=== PATIENT | male | born 1960 | race African-American/Black ===

== ENCOUNTER 2016-09-06 08:21 | Inpatient (IN) | payer OTHER ==
[2016-09-06 08:43] VITALS: BMI 24.3
--- NOTE | 2016-09-06 09:09 | HP ---
CIWA Score - CIWA Score Nausea/Vomitin Muscle Tremors: 3 Anxiety: 3 Agitation: 3 Paroxysmal Sweats: 2 Orientation: 0-Oriented Tacttile Disturbances: 2-Mild Itch/Numbness/Burn Auditory Disturbances: 2-Mild Harshness/Frighten Visual Disturbances: 2-Mild Sensitivity Headache: 2-Mild CIWA-Ar Total Score: 22 Admission ROS BHS - HPI Chief Complaint: i need help to stop drinking alcohol Allergies/Adverse Reactions: Allergies Allergy/AdvReac Type Severity Reaction Status Date / Time No Known Allergies Allergy Verified 09/06/16 08:57 History of Present Illness: this 56 years old male with alcohol dependence,cocaine dependence ,seeking help for detox,last treatment [facility] 06/13/15 to 06/17/15 and rehab in [facility] depression nicotine dependence htn longest period of sobriety 8 months Exam Limitations: No Limitations - Ebola screening Have you traveled outside of the country in the last 21 days: No Have you had contact with anyone from an Ebola affected area: No Have you been sick,other than usual withdrawal symptoms: No Do you have a fever: No - Review of Systems Constitutional: Chills, Loss of Appetite, Malaise, Night Sweats, Changes in sleep, Weakness, Unintentional Wgt. Loss EENT: reports: Nose Congestion Respiratory: reports: No Symptoms reported Cardiac: reports: Palpitations GI: reports: Diarrhea, Nausea, Vomiting, Abdominal cramping : reports: No Symptoms Reported Musculoskeletal: reports: Back Pain, Muscle Pain Integumentary: reports: Dryness Neuro: reports: Headache, Tremors Endocrine: reports: No Symptoms Reported Hematology: reports: No Symptoms Reported Psychiatric: reports: Depressed Other Systems: Reviewed and Negative Patient History - Patient Medical History Hx Anemia: No Hx Asthma: No Hx Chronic Obstructive Pulmonary Disease (COPD): No Hx Cancer: No Hx Cardiac Disorders: No Hx Congestive Heart Failure: No Hx Hypertension: Yes (not tkaing meds) Hx Hypercholesterolemia: No Hx Pacemaker: No HX Cerebrovascular Accident: No Hx Seizures: No Hx Dementia: No Hx Diabetes: No Hx Gastrointestinal Disorders: Yes (GERD, recent wt loss) Hx Liver Disease: No Hx Genitourinary Disorders: No Hx Sexually Transmitted Disorders: No Hx Renal Disease (ESRD): No Hx Thyroid Disease: No Hx Human Immunodeficiency Virus (HIV): No (last 2015) Hx Hepatitis C: No Hx Depression: Yes (AND ANXIETY) Hx Suicide Attempt: Yes (IN THE PAST) Hx Bipolar Disorder: No Hx Schizophrenia: No Other Medical History: no suicidal,no homicidal - Patient Surgical History Past Surgical History: No Hx Neurologic Surgery: No Hx Cataract Extraction: No Hx Cardiac Surgery: No Hx Lung Surgery: No Hx Breast Surgery: No Hx Breast Biopsy: No Hx Abdominal Surgery: No Hx Appendectomy: No Hx Cholecystectomy: No Hx Genitourinary Surgery: No Hx Section: No Hx Orthopedic Surgery: No Anesthesia Reaction: No - PPD History Previous Implant?: Yes Documented Results: Positive w/o proof PPD to be Administered?: No - Smoking Cessation Smoking history: Current every day smoker Have you smoked in the past 12 months: Yes Aproximately how many cigarettes per day: 5 Hx Chewing Tobacco Use: No Initiated information on smoking cessation: Yes 'Breaking Loose' booklet given: 09/06/16 - Substance & Tx. History Hx Alcohol Use: Yes Hx Substance Use: Yes Substance Use Type: Alcohol, Cocaine Hx Substance Use Treatment: Yes ([facility] 06/13/15 to 06/17/15) - Substances Abused Alcohol Route: Oral Frequency: Daily Amount used: javon(1-2 pints)/beer(24 oz) Age of first use: 12 Date of Last Use: 09/05/16 Cocaine Route: Smoking Frequency: 1-3 times last 30 days Amount used: $30 Age of first use: 28 Date of Last Use: 08/23/16 Family Disease History - Family Disease History Family Disease History: Other: Father (ETOH DEPENDENT) Admission Physical Exam S - Vital Signs Vital Signs: Vital Signs - 24 hr 09/06/16 08:39 Temperature 96.7 F L Pulse Rate 79 Respiratory 18 Rate Blood Pressure 138/89 - Physical General Appearance: Yes: Moderate Distress, Tremorous, Irritable, Sweating, Anxious HEENTM: Yes: Normocephalic, KAT, Pharynx Normal, Nasal Congestion Respiratory: Yes: Lungs Clear, Normal Breath Sounds, No Respiratory Distress Neck: Yes: Within Normal Limits, Supple, Trachea in good position Breast: Yes: Within Normal Limits Cardiology: Yes: Within Normal Limits, Regular Rhythm, Regular Rate, S1, S2 Abdominal: Yes: Within Normal Limits, Normal Bowel Sounds, Non Tender, Flat, Soft Genitourinary: Yes: Within Normal Limits Back: Yes: Muscle Spasm Musculoskeletal: Yes: full range of Motion, Back pain Extremities: Yes: Tremors Neurological: Yes: capacity planning manager II-XII NML intact, Fully Oriented, Alert, Motor Strength 5/5 Integumentary: Yes: Dry Lymphatic: Yes: Within Normal Limits - Diagnostic (1) Anxiety and depression Current Visit: No Status: Chronic (2) Cocaine dependence Current Visit: Yes Status: Acute (3) GERD (gastroesophageal reflux disease) Current Visit: Yes Status: Chronic (4) HTN (hypertension) Current Visit: Yes Status: Chronic (5) Nicotine dependence Current Visit: Yes Status: Acute (6) Alcohol dependence with uncomplicated withdrawal Current Visit: Yes Status: Acute Cleared for Admission [facility] - Detox or Rehab [facility] Level of Care: Medically Managed Detox Regimen/Protocol: Librium [facility] Breath Alcohol Content Breath Alcohol Content: 0.143 Urine Drug Screen - Results Urine Drug Screen Results: KHOA-Cocaine
[2016-09-06] MEDS ORDERED: MAGNESIUM HYDROX 2400MG/30ML ORAL SUSPENSION 30 ML CUP PO PRN (09:20)
[2016-09-06] MEDS ORDERED: ACETAMINOPHEN 325 MG TABLET (FP) PO PRN (09:20)
[2016-09-06] MEDS ORDERED: LOPERAMIDE HCL 2 MG CAPSULE PO PRN (09:20)
[2016-09-06] MEDS ORDERED: hydrOXYzine PAMOATE 50 MG CAPSULE (FP) PO PRN (09:20)
[2016-09-06] MEDS ORDERED: guaiFENesin/D-METHORPHAN HB 10 ML UNIT-DOSE CUPS PO PRN (09:20)
[2016-09-06] MEDS ORDERED: MAGNESIUM CITRATE 300 ML BOTTLE PO PRN (09:20)
[2016-09-06] MEDS ORDERED: MAG HYDROX/AL HYDROX/SIMETH 30 ML UNIT-DOSE CUP PO PRN (09:20)
[2016-09-06] MEDS ORDERED: MENTHOL/PHENOL 1 EACH UD MM PRN (09:20)
[2016-09-06] MEDS ORDERED: P-EPHED 60MG/TRIPROLIDI 2.5MG TABLET PO PRN (09:20)
[2016-09-06] MEDS ORDERED: diphenhydrAMINE HCL 25 MG CAPSULE (FP) PO PRN (09:23)
[2016-09-06] MEDS ORDERED: chlordiazePOXIDE HCL 25 MG CAPSULE PO ONE (09:30)
[2016-09-06] MEDS: PRENATAL VITAMINS W/ FOLIC ACID TABLET (FP) PO SCH (09:56)
--- NOTE | 2016-09-06 10:20 | CONSULT ---
[facility] Psychiatric Consult - Data Date of interview: 09/06/16 Admission source: [facility] Identifying data: Readmission to [facility] for this 56 y/o AA male seeking detoxification treatment on for alcohol,cocaine (crack) and marijuana dependence.Patient is single (never ),a father of two,domiciled, unemployed and supported on SSI benefits. Substance Abuse History: Mr Bailey admits to abusing alcohol since age 12 ( drinks 1 1/2 pints of javon/day - last use on 09/05/16),smoking crack since age 28 (spends 30 dollars twice a month - last use on 08/30/16),marijuana from age 12 onwards (sporadic use);smoked a joint two weeks ago.Patient reportedly smokes 6- 10 cigarettes daily.Known history of previous detox/rehab treatment. Medical History: Hypertension,GERD and chronic weakness of left leg (discrete limp). Psychiatric History: No reported history of psychiatric hospitalizations.Mr Bailey reports that,years ago at a rehabilitation facility in [facility],he was diagnosed with MDD and treated with bupropion.Previous records also indicate that remeron and wellbutrin have been prescribed to the patient (see Dr Dia's note of 06/14/2015).Mr Bailey states that he has not taken wellbutrin for over one month (prescribed by his primary care physician).Lost to follow up since his last admission to [facility].Now willing to resume antidepressant medication.Patient denies history of suicide attempts. Physical/Sexual Abuse/Trauma History: Patient denies. Additional Comment: Urine Drug Screen Results: positive for cocaine. Mental Status Exam - Mental Status Exam Alert and Oriented to: Time, Place, Person Cognitive Function: Good Patient Appearance: Well Groomed (covered with jewelry : rings in every finger, large chain with a cross,bracelets and earing in left ear) Mood: Withdrawn, Hopeful Affect: Appropriate Patient Behavior: Appropriate, Cooperative Speech Pattern: Clear Voice Loudness: Normal Thought Process: Intact, Goal Oriented Thought Disorder: Not Present Hallucinations: Denies Suicidal Ideation: Denies Homicidal Ideation: Denies Insight/Judgement: Fair Sleep: Fair Appetite: Good Gait/Station: Other (walks with a discrete limp) Psychiatric Findings - Problem List ([place] 1, 2,3) (1) Alcohol dependence with uncomplicated withdrawal Current Visit: Yes Status: Acute (2) Cannabis dependence Current Visit: No Status: Chronic Comment: Self-report but tox screen is negative for marijuana. (3) Cocaine dependence Current Visit: Yes Status: Acute (4) Nicotine dependence Current Visit: Yes Status: Acute (5) Drug-induced mood disorder Current Visit: Yes Status: Acute (6) Depressive disorder Current Visit: Yes Status: Chronic (7) GERD (gastroesophageal reflux disease) Current Visit: Yes Status: Chronic (8) HTN (hypertension) Current Visit: Yes Status: Chronic - Initial Treatment Plan Initial Treatment Plan: Previous records are revisited.[facility] report is reviewed and appreciated.Detoxification is in progress.Wellbutrin XL 150 mg po is ordered.Will titrate to 300 mg in next couple of days.Side effects/benefits discussed with patient.He is made aware of potential for seizures.Good tolerability is reported by patient.He consents (verbal agreement) to restart on that medication.Will monitor progress.
[2016-09-06] MEDS ORDERED: ONDANSETRON *ODT* 4 MG TABLET SL PRN (12:45)
[2016-09-06 13:57] LABS: URINE APPEARANCE CLEAR; URINE BILIRUBIN NEGATIVE (NEGATIVE); URINE COLOR YELLOW; URINE GLUCOSE (UA) NEGATIVE (NEGATIVE); URINE KETONE NEGATIVE (NEGATIVE); URINE LEUK ESTERASE NEGATIVE (NEGATIVE); URINE NITRITE NEGATIVE (NEGATIVE); URINE UROBILINOGEN NEGATIVE mg/dL (0.2-1.0)
[2016-09-06] MEDS: chlordiazePOXIDE HCL 25 MG CAPSULE PO PRN (14:04)
[2016-09-06 14:14] LABS: URINE BLOOD 1+ (NEGATIVE); URINE PROTEIN 1+ (NEGATIVE)
[2016-09-06 14:21] LABS: GRANULAR CASTS 30 /lpf; URINE RBC <1 /hpf (0-3); URINE WBC <1 /hpf (3-5)
[2016-09-06] MEDS: chlordiazePOXIDE HCL 25 MG CAPSULE PO SCH ×2 (17:22→22:16)
[2016-09-06] MEDS: THIAMINE HCL 100 MG TABLET (FP) PO SCH (22:16)
[2016-09-06] MEDS: FLUTICASONE PROP 0.05% 16 GM NASAL SPRAY NS SCH (22:16)
[2016-09-06] MEDS: diphenhydrAMINE HCL 50 MG CAPSULE PO PRN (22:17)
[2016-09-07] MEDS: chlordiazePOXIDE HCL 25 MG CAPSULE PO PRN (02:38)
[2016-09-07] MEDS: chlordiazePOXIDE HCL 25 MG CAPSULE PO SCH ×4 (05:33→22:12)
--- NOTE | 2016-09-07 08:31 | EKG ---
Test Reason : Blood Pressure : / mmHG Vent. Rate : 067 BPM Atrial Rate : 067 BPM P-R Int : 118 ms QRS Dur : 090 ms QT Int : 420 ms P-R-T Axes : 069 040 053 degrees QTc Int : 443 ms NORMAL SINUS RHYTHM NORMAL ECG NO PREVIOUS ECGS AVAILABLE Confirmed by JULIAN PERRY, JOSIAS ([id number]) on 09/07/2016 8:31:22 AM Referred By: Confirmed By:JOSIAS JORDAN MD
[2016-09-07] MEDS: FLUTICASONE PROP 0.05% 16 GM NASAL SPRAY NS SCH ×2 (10:20→22:12)
[2016-09-07] MEDS: PRENATAL VITAMINS W/ FOLIC ACID TABLET (FP) PO SCH (10:20)
[2016-09-07 10:29] LABS: MCH 31.9 pg (25.7-33.7); MCHC 33.7 g/dl (32.0-35.9); MEAN CELL VOLUME 94.8 fl (80-96); MEAN PLT VOLUME 8.6 fl (7.5-11.1); PLATELET COUNT 172 K/MM3 (134-434); RDW 12.5 % (11.9-15.9); WHITE BLOOD COUNT 3.6 K/mm3 (4.0-10.0)
[2016-09-07 10:33] LABS: ALBUMIN 4.6 g/dl (3.4-5.0); ANION GAP 8 (8-16); BILIRUBIN,TOTAL 0.5 mg/dL (0.2-1.0); CALCIUM 9.3 mg/dL (8.5-10.1); CO2 26 mmol/L (21-32); CREATININE 1.1 mg/dL (0.7-1.3); GLUCOSE,RANDOM 90 mg/dL (74-106); SGOT/AST 174 U/L (15-37); SGPT/ALT 87 U/L (12-78); TOT PROT 9.3 g/dl (6.4-8.2)
[2016-09-07 10:34] LABS: ALK PHOS 91 U/L (45-117)
--- NOTE | 2016-09-07 12:46 | PN ---
S CIWA - CIWA Score Nausea/Vomitin Muscle Tremors: 2 Anxiety: 4-Mod. Anxious/Guarded Agitation: 1-Slight > Activity Paroxysmal Sweats: 3 Orientation: 2-Disoriented Date<2 days Tacttile Disturbances: 1-Very Mild Itch/Numbness Auditory Disturbances: 0-None Visual Disturbances: 1-Very Mild Sensitivity Headache: 0-None Present CIWA-Ar Total Score: 17 BHS Progress Note (SOAP) Subjective: Interrupted Sleep, Body Aches, Fatigue, Sweating, Stomach Cramping, Nausea. Objective: PT. A & O X 2 (DISORIENTED ABOUT DAY / DATE). NO ACUTE DISTRESS. 09/07/16 12:44 Vital Signs Temperature 97.9 F 09/07/16 09:14 Pulse Rate 92 H 09/07/16 09:14 Respiratory Rate 20 09/07/16 09:14 Blood Pressure 114/85 09/07/16 09:14 O2 Sat by Pulse Oximetry (%) Laboratory Tests 09/06/16 09/07/16 09/07/16 11:30 06:00 06:00 WBC 3.6 L RBC 3.83 L Hgb 12.2 D Hct 36.4 MCV 94.8 MCH 31.9 MCHC 33.7 RDW 12.5 Plt Count 172 MPV 8.6 Sodium 138 Potassium 4.3 D Chloride 104 Carbon Dioxide 26 Anion Gap 8 BUN 13 D Creatinine 1.1 Creat Clearance w eGFR > 60 Random Glucose 90 Calcium 9.3 Total Bilirubin 0.5 D AST 174 H D ALT 87 H D Alkaline Phosphatase 91 D Total Protein 9.3 H Albumin 4.6 Urine Color Yellow Urine Appearance Clear Urine pH 5.0 Ur Specific [place] 1.020 Urine Protein 1+ H Urine Glucose (UA) Negative Urine Ketones Negative Urine Blood 1+ H Urine Nitrite Negative Urine Bilirubin Negative Urine Urobilinogen Negative Ur Leukocyte Esterase Negative Urine RBC <1 Urine WBC <1 Ur Epithelial Cells Rare Granular Casts 30 RPR Titer 09/07/16 06:00 WBC RBC Hgb Hct MCV MCH MCHC RDW Plt Count MPV Sodium Potassium Chloride Carbon Dioxide Anion Gap BUN Creatinine Creat Clearance w eGFR Random Glucose Calcium Total Bilirubin AST ALT Alkaline Phosphatase Total Protein Albumin Urine Color Urine Appearance Urine pH Ur Specific [place] Urine Protein Urine Glucose (UA) Urine Ketones Urine Blood Urine Nitrite Urine Bilirubin Urine Urobilinogen Ur Leukocyte Esterase Urine RBC Urine WBC Ur Epithelial Cells Granular Casts RPR Titer Nonreactive LABS NOTED. Assessment: 09/07/16 12:44 WITHDRAWAL SYMPTOMS. Plan: CONTINUE DETOX. REPEAT AST ON 09/09/2016 FOR ELEVATED ADMISSION LEVEL.
[2016-09-07] MEDS: THIAMINE HCL 100 MG TABLET (FP) PO SCH (22:12)
[2016-09-07] MEDS: diphenhydrAMINE HCL 50 MG CAPSULE PO PRN (22:12)
[2016-09-08] MEDS: diphenhydrAMINE HCL 50 MG CAPSULE PO PRN ×2 (01:26→22:24)
[2016-09-08] MEDS: chlordiazePOXIDE HCL 25 MG CAPSULE PO PRN (02:12)
[2016-09-08] MEDS: chlordiazePOXIDE HCL 25 MG CAPSULE PO SCH ×2 (05:42→10:14)
[2016-09-08] MEDS: FLUTICASONE PROP 0.05% 16 GM NASAL SPRAY NS SCH ×2 (10:14→22:24)
[2016-09-08] MEDS: PRENATAL VITAMINS W/ FOLIC ACID TABLET (FP) PO SCH (10:14)
[2016-09-08] MEDS: IBUPROFEN 400 MG TABLET (FP) PO PRN (10:18)
[2016-09-08] MEDS: GABAPENTIN 100 MG CAPSULE (FP) PO SCH ×2 (14:46→22:24)
--- NOTE | 2016-09-08 15:21 | PN ---
[facility] CIWA - CIWA Score Nausea/Vomitin-Mild Nausea/No Vomiting Muscle Tremors: 4-Moderate,w/Arms Extend Anxiety: 4-Mod. Anxious/Guarded Agitation: 4-Moderately Restless Paroxysmal Sweats: No Perspiration Orientation: 0-Oriented Tacttile Disturbances: 1-Very Mild Itch/Numbness Auditory Disturbances: 0-None Visual Disturbances: 0-None Headache: 2-Mild CIWA-Ar Total Score: 16 BHS Progress Note (SOAP) Subjective: Tremor, weakness, interrupted sleep, c/o left leg numbness x 4-5 years started after he broke left foot (possible stress fx) and was seen by orthopedic and had foot brace as per patient. Patient has PCP. Objective: 09/08/16 15:19 Last Vital Signs Temp Pulse Resp BP Pulse Ox 99.1 F 87 18 113/81 09/08/16 13:02 09/08/16 13:02 09/08/16 13:02 09/08/16 13:02 Laboratory Tests 09/06/16 09/07/16 09/07/16 11:30 06:00 06:00 WBC 3.6 L RBC 3.83 L Hgb 12.2 D Hct 36.4 MCV 94.8 MCH 31.9 MCHC 33.7 RDW 12.5 Plt Count 172 MPV 8.6 Sodium 138 Potassium 4.3 D Chloride 104 Carbon Dioxide 26 Anion Gap 8 BUN 13 D Creatinine 1.1 Creat Clearance w eGFR > 60 Random Glucose 90 Calcium 9.3 Total Bilirubin 0.5 D AST 174 H D ALT 87 H D Alkaline Phosphatase 91 D Total Protein 9.3 H Albumin 4.6 Urine Color Yellow Urine Appearance Clear Urine pH 5.0 Ur Specific [place] 1.020 Urine Protein 1+ H Urine Glucose (UA) Negative Urine Ketones Negative Urine Blood 1+ H Urine Nitrite Negative Urine Bilirubin Negative Urine Urobilinogen Negative Ur Leukocyte Esterase Negative Urine RBC <1 Urine WBC <1 Ur Epithelial Cells Rare Granular Casts 30 RPR Titer 09/07/16 06:00 WBC RBC Hgb Hct MCV MCH MCHC RDW Plt Count MPV Sodium Potassium Chloride Carbon Dioxide Anion Gap BUN Creatinine Creat Clearance w eGFR Random Glucose Calcium Total Bilirubin AST ALT Alkaline Phosphatase Total Protein Albumin Urine Color Urine Appearance Urine pH Ur Specific [place] Urine Protein Urine Glucose (UA) Urine Ketones Urine Blood Urine Nitrite Urine Bilirubin Urine Urobilinogen Ur Leukocyte Esterase Urine RBC Urine WBC Ur Epithelial Cells Granular Casts RPR Titer Nonreactive Labs noted: UA: 1+ protein and 1+ blood PE: Neuro: A/A/Ox3, sensation to feet intact Skin: warm to touch, turgor good, moist Resp: lungs ctab/l, no adventitious breath sounds CV: rrr, s1s2+, apical rate 96 bpm Extrem: ppp, no c/c/e Gait: steady Assessment: 09/08/16 15:20 Withdrawal symptoms Peripheral neuropathy, chronic following right foot fx Noted with proteinuria and microscopic hematuria Plan: Continue detox, ambien 10mg PO prn insomnia Chronic peripheral neuropathy: start neurontin 100mg PO TID, follow up with PCP post discharge for further evaluation/management. Patient reports feeling a little better after first dose of neurontin. Proteinuria and microscopic hematuria: encouraged to drink lots of water, water pitcher ordered, repeat UA
[2016-09-08] MEDS: chlordiazePOXIDE 5 MG CAPSULE PO SCH ×2 (17:29→22:24)
[2016-09-08] MEDS: THIAMINE HCL 100 MG TABLET (FP) PO SCH (22:24)
[2016-09-08] MEDS: ZOLPIDEM TARTRATE 5 MG TABLET PO PRN (22:26)
[2016-09-09] MEDS: chlordiazePOXIDE 5 MG CAPSULE PO SCH ×2 (05:01→10:18)
[2016-09-09] MEDS: GABAPENTIN 100 MG CAPSULE (FP) PO SCH ×3 (07:06→22:09)
[2016-09-09 10:11] LABS: URINE APPEARANCE CLEAR; URINE BILIRUBIN NEGATIVE (NEGATIVE); URINE BLOOD NEGATIVE (NEGATIVE); URINE COLOR LTYELLOW; URINE GLUCOSE (UA) NEGATIVE (NEGATIVE); URINE KETONE NEGATIVE (NEGATIVE); URINE LEUK ESTERASE NEGATIVE (NEGATIVE); URINE NITRITE NEGATIVE (NEGATIVE); URINE PROTEIN NEGATIVE (NEGATIVE); URINE UROBILINOGEN NEGATIVE mg/dL (0.2-1.0)
[2016-09-09] MEDS: FLUTICASONE PROP 0.05% 16 GM NASAL SPRAY NS SCH ×2 (10:18→22:08)
[2016-09-09] MEDS: PRENATAL VITAMINS W/ FOLIC ACID TABLET (FP) PO SCH (10:18)
[2016-09-09] MEDS: IBUPROFEN 400 MG TABLET (FP) PO PRN ×2 (10:19→22:12)
--- NOTE | 2016-09-09 14:10 | PN ---
BHS Progress Note (SOAP) Subjective: Tremors, Body Aches, Lower Back Ache. Objective: PT. A & O X 2 (DISORIENTED ABOUT DAY / DATE), OBSERVED AMBULATING ON UNIT. NO ACUTE DISTRESS. PT. REPORTS HISTORY OF NUMBNESS IN LEFT LEG FOR THE LAST 6-7 YEARS, FOR WHICH HE HAS BEEN EVALUATED IN THE PAST BY A FACILITIES COORDINATOR. 09/09/16 14:08 Vital Signs Temperature 98.2 F 09/09/16 14:05 Pulse Rate 75 09/09/16 14:05 Respiratory Rate 18 09/09/16 14:05 Blood Pressure 121/77 09/09/16 14:05 O2 Sat by Pulse Oximetry (%) Laboratory Tests 09/06/16 09/07/16 09/07/16 11:30 06:00 06:00 WBC 3.6 L RBC 3.83 L Hgb 12.2 D Hct 36.4 MCV 94.8 MCH 31.9 MCHC 33.7 RDW 12.5 Plt Count 172 MPV 8.6 Sodium 138 Potassium 4.3 D Chloride 104 Carbon Dioxide 26 Anion Gap 8 BUN 13 D Creatinine 1.1 Creat Clearance w eGFR > 60 Random Glucose 90 Calcium 9.3 Total Bilirubin 0.5 D AST 174 H D ALT 87 H D Alkaline Phosphatase 91 D Total Protein 9.3 H Albumin 4.6 Urine Color Yellow Urine Appearance Clear Urine pH 5.0 Ur Specific [place] 1.020 Urine Protein 1+ H Urine Glucose (UA) Negative Urine Ketones Negative Urine Blood 1+ H Urine Nitrite Negative Urine Bilirubin Negative Urine Urobilinogen Negative Ur Leukocyte Esterase Negative Urine RBC <1 Urine WBC <1 Ur Epithelial Cells Rare Granular Casts 30 RPR Titer 09/07/16 09/09/16 06:00 07:15 WBC RBC Hgb Hct MCV MCH MCHC RDW Plt Count MPV Sodium Potassium Chloride Carbon Dioxide Anion Gap BUN Creatinine Creat Clearance w eGFR Random Glucose Calcium Total Bilirubin AST ALT Alkaline Phosphatase Total Protein Albumin Urine Color Ltyellow Urine Appearance Clear Urine pH 7.0 D Ur Specific [place] Urine Protein Negative Urine Glucose (UA) Negative Urine Ketones Negative Urine Blood Negative Urine Nitrite Negative Urine Bilirubin Negative Urine Urobilinogen Negative Ur Leukocyte Esterase Negative Urine RBC Urine WBC Ur Epithelial Cells Granular Casts RPR Titer Nonreactive LABS NOTED. RESULT OF REPEAT UA NOTED. 09/09/16 14:11 09/09/16 14:11 Assessment: 09/09/16 14:09 WITHDRAWAL SYMPTOMS. Plan: CONTINUE DETOX.
[2016-09-09] MEDS: chlordiazePOXIDE HCL 10 MG CAPSULE PO SCH ×2 (17:00→22:09)
[2016-09-09] MEDS: THIAMINE HCL 100 MG TABLET (FP) PO SCH (22:09)
[2016-09-09] MEDS: ZOLPIDEM TARTRATE 5 MG TABLET PO PRN (22:09)
[2016-09-10] MEDS: GABAPENTIN 100 MG CAPSULE (FP) PO SCH (06:04)
[2016-09-10] MEDS: chlordiazePOXIDE HCL 10 MG CAPSULE PO SCH (06:04)
[2016-09-10] MEDS: IBUPROFEN 400 MG TABLET (FP) PO PRN (06:19)
[2016-09-10] MEDS: FLUTICASONE PROP 0.05% 16 GM NASAL SPRAY NS SCH (09:24)
[2016-09-10] MEDS: PRENATAL VITAMINS W/ FOLIC ACID TABLET (FP) PO SCH (09:25)
[2016-09-10 09:42] VITALS: BP 120/80; PULSE 82; TEMP 96.1
--- NOTE | 2016-09-10 10:37 | DS ---
[facility] Detox Discharge Summary Admission Date: 09/06/16 Discharge Date: 09/10/16 - History Present History: Alcohol Dependence, Cocaine Dependence Additional Comments: Patient electing to go home. Outpatient 12-Step / AA / NA Programs recommended for Follow-up. Pertinent Past History: HTN, GERD, Depression, Anxiety. - Physical Exam Results Vital Signs: Vital Signs Temperature 96.1 F L 09/10/16 09:41 Pulse Rate 82 09/10/16 09:41 Respiratory Rate 18 09/10/16 09:41 Blood Pressure 120/80 09/10/16 09:41 O2 Sat by Pulse Oximetry (%) Pertinent Admission Physical Exam Findings: WITHDRAWAL SYMPTOMS. Vital Signs Temperature 96.1 F L 09/10/16 09:41 Pulse Rate 82 09/10/16 09:41 Respiratory Rate 18 09/10/16 09:41 Blood Pressure 120/80 09/10/16 09:41 O2 Sat by Pulse Oximetry (%) Laboratory Tests 09/06/16 09/07/16 09/07/16 11:30 06:00 06:00 WBC 3.6 L RBC 3.83 L Hgb 12.2 D Hct 36.4 MCV 94.8 MCH 31.9 MCHC 33.7 RDW 12.5 Plt Count 172 MPV 8.6 Sodium 138 Potassium 4.3 D Chloride 104 Carbon Dioxide 26 Anion Gap 8 BUN 13 D Creatinine 1.1 Creat Clearance w eGFR > 60 Random Glucose 90 Calcium 9.3 Total Bilirubin 0.5 D AST 174 H D ALT 87 H D Alkaline Phosphatase 91 D Total Protein 9.3 H Albumin 4.6 Urine Color Yellow Urine Appearance Clear Urine pH 5.0 Ur Specific [place] 1.020 Urine Protein 1+ H Urine Glucose (UA) Negative Urine Ketones Negative Urine Blood 1+ H Urine Nitrite Negative Urine Bilirubin Negative Urine Urobilinogen Negative Ur Leukocyte Esterase Negative Urine RBC <1 Urine WBC <1 Ur Epithelial Cells Rare Granular Casts 30 RPR Titer 09/07/16 09/09/16 09/09/16 06:00 07:15 11:10 WBC RBC Hgb Hct MCV MCH MCHC RDW Plt Count MPV Sodium Potassium Chloride Carbon Dioxide Anion Gap BUN Creatinine Creat Clearance w eGFR Random Glucose Calcium Total Bilirubin AST 138 H D ALT Alkaline Phosphatase Total Protein Albumin Urine Color L[place] Urine Appearance Clear Urine pH 7.0 D Ur Specific [place] 1.010 Urine Protein Negative Urine Glucose (UA) Negative Urine Ketones Negative Urine Blood Negative Urine Nitrite Negative Urine Bilirubin Negative Urine Urobilinogen Negative Ur Leukocyte Esterase Negative Urine RBC Urine WBC Ur Epithelial Cells Granular Casts RPR Titer Nonreactive LABS NOTED. - Treatment Hospital Course: Detox Protocol Followed, Detoxed Safely, Responded well, Discharged Condition Good - Medication Discharge Medications: Ambulatory Orders Diphenhydramine HCl [Benadryl Capsule -] 25 mg PO Q6H 05/02/14 Bupropion HCl [Wellbutrin Xl -] 300 mg PO DAILY #30 tab.sr.24h 06/14/15 Bupropion HCl [Wellbutrin Xl] 300 mg PO DAILY #30 tab.er.24h 09/06/16 Phenylephrine 0.25% Nasal Spra [Freddie-Synephrine 0.25% Nasal [place] -] 1 spray NS Q4H 09/06/16 - Diagnosis (1) Alcohol dependence with uncomplicated withdrawal Status: Acute (2) Cocaine dependence Status: Acute Qualifiers: Substance use status: uncomplicated Qualified Code(s): F14.20 - Cocaine dependence, uncomplicated (3) Drug-induced mood disorder Status: Acute (4) Nicotine dependence Status: Chronic Qualifiers: Nicotine product type: cigarettes Substance use status: uncomplicated Qualified Code(s): F17.210 - Nicotine dependence, cigarettes, uncomplicated (5) Anxiety and depression Status: Chronic (6) Depressive disorder Status: Chronic (7) GERD (gastroesophageal reflux disease) Status: Chronic Qualifiers: Esophagitis presence: esophagitis presence not specified Qualified Code(s): K21.9 - Gastro-esophageal reflux disease without esophagitis (8) HTN (hypertension) Status: Chronic Qualifiers: Hypertension type: essential hypertension Qualified Code(s): I10 - Essential (primary) hypertension (9) Cannabis dependence Status: Chronic - AMA Did Patient Leave Against Medical Advice: No
== END 2016-09-10 09:32 | disposition home or self-care (01) | DRG 774 ==
LOC: YASAS 08:21 → Y3N 09:25
PROVIDERS: ADMIT Internal Medicine; ATTEND Internal Medicine
PROC: HZ2ZZZZ Detoxification Services for Substance Abuse Treatment (ICD-10-PCS; principal; 2016-09-10)
DX: F10.230 Alcohol dependence with withdrawal, uncomplicated (principal); F14.20 Cocaine dependence, uncomplicated; F12.20 Cannabis dependence, uncomplicated; F17.210 Nicotine dependence, cigarettes, uncomplicated; F41.8 Other specified anxiety disorders; F19.24 Other psychoactive substance dependence with psychoactive substance-induced mood disorder; I10 Essential (primary) hypertension; K21.9 Gastro-esophageal reflux disease without esophagitis
CPT/HCPCS: 36415; 71010-TC; 80053; 81003; 81015; 84450; 85027; 86593; 93005; 93010

== ENCOUNTER 2017-03-06 11:49 | Inpatient (IN) | payer OTHER ==
[2017-03-06 13:03] VITALS: BMI 24.3
--- NOTE | 2017-03-06 14:11 | HP ---
CIWA Score - CIWA Score Nausea/Vomitin Muscle Tremors: 3 Anxiety: 3 Agitation: 3 Paroxysmal Sweats: 2 Orientation: 0-Oriented Tacttile Disturbances: 2-Mild Itch/Numbness/Burn Auditory Disturbances: 2-Mild Harshness/Frighten Visual Disturbances: 2-Mild Sensitivity Headache: 2-Mild CIWA-Ar Total Score: 22 Admission ROS BHS - HPI Chief Complaint: i need help to stop drinking alcohol,cocaine and marijuana Allergies/Adverse Reactions: Allergies Allergy/AdvReac Type Severity Reaction Status Date / Time No Known Allergies Allergy Verified 03/06/17 14:03 History of Present Illness: this 57 years old black male with alcohol,cocaine and marijuana dependence, seeking detox,withdrawal symptom,last treatment 09/06/16 to 09/10/16 hypertension nicotine dependence depression longest period of sobriety 8 months Exam Limitations: No Limitations - Ebola screening Have you traveled outside of the country in the last 21 days: No Have you been sick,other than usual withdrawal symptoms: No - Review of Systems Constitutional: Loss of Appetite, Malaise, Night Sweats, Changes in sleep, Weakness EENT: reports: Nose Congestion Respiratory: reports: No Symptoms reported Cardiac: reports: No Symptoms Reported GI: reports: Diarrhea, Nausea, Vomiting, Abdominal cramping : reports: No Symptoms Reported Musculoskeletal: reports: Back Pain, Muscle Pain Integumentary: reports: Dryness Neuro: reports: Headache, Tremors Endocrine: reports: No Symptoms Reported Hematology: reports: No Symptoms Reported Psychiatric: reports: Depressed Patient History - Patient Medical History Hx Anemia: No Hx Asthma: No Hx Chronic Obstructive Pulmonary Disease (COPD): No Hx Cancer: No Hx Cardiac Disorders: No Hx Congestive Heart Failure: No Hx Hypertension: Yes (not tkaing meds) Hx Hypercholesterolemia: Yes Hx Pacemaker: No HX Cerebrovascular Accident: No Hx Seizures: No Hx Dementia: No Hx Diabetes: No Hx Gastrointestinal Disorders: Yes (GERD, recent wt loss) Hx Liver Disease: Yes Hx Genitourinary Disorders: No Hx Sexually Transmitted Disorders: No Hx Renal Disease (ESRD): No Hx Thyroid Disease: No Hx Human Immunodeficiency Virus (HIV): No (last 2016 negatie) Hx Hepatitis C: Yes Hx Depression: Yes (AND ANXIETY) Hx Suicide Attempt: Yes (IN THE PAST) Hx Bipolar Disorder: No Hx Schizophrenia: No Other Medical History: no suicidal,no homicidal,low back apin - Patient Surgical History Past Surgical History: No Hx Neurologic Surgery: No Hx Cataract Extraction: No Hx Cardiac Surgery: No Hx Lung Surgery: No Hx Breast Surgery: No Hx Breast Biopsy: No Hx Abdominal Surgery: No Hx Appendectomy: No Hx Cholecystectomy: No Hx Genitourinary Surgery: No Hx Section: No Hx Orthopedic Surgery: No Anesthesia Reaction: No - PPD History Previous Implant?: Yes Documented Results: Positive w/proof PPD to be Administered?: No - Smoking Cessation Smoking history: Current every day smoker Have you smoked in the past 12 months: Yes Aproximately how many cigarettes per day: 5 Hx Chewing Tobacco Use: No Initiated information on smoking cessation: Yes 'Breaking Loose' booklet given: 03/06/17 - Substance & Tx. History Hx Alcohol Use: Yes Hx Substance Use: Yes Substance Use Type: Alcohol, Cocaine, Marijuana Hx Substance Use Treatment: Yes ([facility] 09/06/16 to 09/10/16) - Substances Abused Alcohol Route: Oral Frequency: Daily Amount used: 1 AND 1/2 PINTS NENITA Age of first use: 12 Date of Last Use: 03/06/17 Cocaine Route: Smoking Frequency: 1-3 times last 30 days Amount used: $20 Age of first use: 18 Date of Last Use: 02/27/17 Marijuana/Hashish Route: Smoking Frequency: 1-3 times last 30 days Amount used: 1 JOINT Age of first use: 12 Date of Last Use: 02/27/17 Family Disease History - Family Disease History Family Disease History: Other: Father (ETOH DEPENDENT) Admission Physical Exam S - Vital Signs Vital Signs: Vital Signs - 24 hr 03/06/17 13:01 Temperature 98.1 F Pulse Rate 90 Respiratory 18 Rate Blood Pressure 143/99 - Physical General Appearance: Yes: Moderate Distress, Tremorous, Irritable, Sweating, Anxious HEENTM: Yes: KAT, Pharynx Normal, Tm's normal Respiratory: Yes: Lungs Clear, Normal Breath Sounds, No Respiratory Distress Neck: Yes: Within Normal Limits, Supple, Trachea in good position Breast: Yes: Within Normal Limits Cardiology: Yes: Within Normal Limits, Regular Rhythm, Regular Rate, S1, S2 Abdominal: Yes: Normal Bowel Sounds, Non Tender, Flat, Soft Genitourinary: Yes: Within Normal Limits Back: Yes: Muscle Spasm Musculoskeletal: Yes: Back pain, Muscle Pain Extremities: Yes: Tremors Neurological: Yes: director of clinical services II-XII NML intact, Fully Oriented, Alert, Motor Strength 5/5 Integumentary: Yes: Dry Lymphatic: Yes: Within Normal Limits - Diagnostic (1) Alcohol dependence with uncomplicated withdrawal Current Visit: No Status: Acute (2) Cocaine dependence Current Visit: No Status: Acute Qualifiers: Substance use status: uncomplicated Qualified Code(s): F14.20 - Cocaine dependence, uncomplicated (3) Cannabis dependence Current Visit: No Status: Chronic Comment: Self-report but tox screen is negative for marijuana. (4) HTN (hypertension) Current Visit: No Status: Chronic Qualifiers: Hypertension type: essential hypertension Qualified Code(s): I10 - Essential (primary) hypertension (5) Nicotine dependence Current Visit: No Status: Chronic Qualifiers: Nicotine product type: cigarettes Substance use status: uncomplicated Qualified Code(s): F17.210 - Nicotine dependence, cigarettes, uncomplicated (6) Hepatitis C Current Visit: Yes Status: Acute (7) Hypercholesteremia Current Visit: Yes Status: Acute Cleared for Admission [facility] - Detox or Rehab [facility] Level of Care: Medically Managed Detox Regimen/Protocol: Librium [facility] Breath Alcohol Content Breath Alcohol Content: 0.230 Urine Drug Screen - Results Drug Screen Negative: No Urine Drug Screen Results: KHOA-Cocaine, TCA-Tricyclic Antidepress
[2017-03-06] MEDS ORDERED: LOPERAMIDE HCL 2 MG CAPSULE PO PRN (14:21)
[2017-03-06] MEDS ORDERED: MAGNESIUM CITRATE 300 ML BOTTLE PO PRN (14:21)
[2017-03-06] MEDS ORDERED: MAG HYDROX/AL HYDROX/SIMETH 30 ML UNIT-DOSE CUP PO PRN (14:21)
[2017-03-06] MEDS ORDERED: MENTHOL/PHENOL 1 EACH UD MM PRN (14:21)
[2017-03-06] MEDS ORDERED: P-EPHED 60MG/TRIPROLIDI 2.5MG TABLET PO PRN (14:21)
[2017-03-06] MEDS ORDERED: MAGNESIUM HYDROX 2400MG/30ML ORAL SUSPENSION 30 ML CUP PO PRN (14:21)
[2017-03-06] MEDS ORDERED: ACETAMINOPHEN 325 MG TABLET (FP) PO PRN (14:21)
[2017-03-06] MEDS ORDERED: chlordiazePOXIDE HCL 25 MG CAPSULE PO PRN (14:21)
[2017-03-06] MEDS ORDERED: guaiFENesin/D-METHORPHAN HB 10 ML UNIT-DOSE CUPS PO PRN (14:21)
[2017-03-06] MEDS ORDERED: IBUPROFEN 400 MG TABLET (FP) PO PRN (14:21)
[2017-03-06] MEDS ORDERED: chlordiazePOXIDE HCL 25 MG CAPSULE PO ONE (15:11)
[2017-03-06] MEDS: chlordiazePOXIDE HCL 25 MG CAPSULE PO SCH ×2 (20:44→22:03)
[2017-03-06] MEDS: THIAMINE HCL 100 MG TABLET (FP) PO SCH (22:03)
[2017-03-06] MEDS: hydrOXYzine PAMOATE 25 MG CAPSULE (FP) PO PRN (22:05)
[2017-03-06 23:16] LABS: URINE APPEARANCE CLEAR; URINE BILIRUBIN NEGATIVE (NEGATIVE); URINE BLOOD 1+ (NEGATIVE); URINE COLOR YELLOW; URINE GLUCOSE (UA) NEGATIVE (NEGATIVE); URINE KETONE NEGATIVE (NEGATIVE); URINE LEUK ESTERASE NEGATIVE (NEGATIVE); URINE NITRITE NEGATIVE (NEGATIVE)
[2017-03-06 23:18] LABS: URINE PROTEIN 1+ (NEGATIVE)
[2017-03-07 00:15] LABS: EPI CELLS RARE /HPF (FEW); URINE HYALINE CAST 2 /lpf; URINE MUCUS RARE
[2017-03-07] MEDS: chlordiazePOXIDE HCL 25 MG CAPSULE PO SCH ×4 (05:07→22:00)
[2017-03-07 10:01] LABS: HEMATOCRIT 37.5 % (35.4-49); HEMOGLOBIN 12.2 GM/dL (11.7-16.9); MCH 31.4 pg (25.7-33.7); MCHC 32.6 g/dl (32.0-35.9); MEAN CELL VOLUME 96.3 fl (80-96); MEAN PLT VOLUME 8.7 fl (7.5-11.1); PLATELET COUNT 187 K/MM3 (134-434); RBC 3.89 M/mm3 (4.00-5.60); RDW 12.9 % (11.9-15.9); WHITE BLOOD COUNT 4.7 K/mm3 (4.0-10.0)
[2017-03-07] MEDS: PRENATAL VITAMINS W/ FOLIC ACID TABLET (FP) PO SCH (10:08)
[2017-03-07 10:18] LABS: CHLORIDE 100 mmol/L (98-107); POTASSIUM 4.1 mmol/L (3.5-5.1); SODIUM 134 mmol/L (136-145)
[2017-03-07 10:24] LABS: ALBUMIN 4.7 g/dl (3.4-5.0); ALK PHOS 102 U/L (45-117); ANION GAP 7 (8-16); BILIRUBIN,TOTAL 0.7 mg/dL (0.2-1.0); BLOOD UREA NITROGEN 12 mg/dL (7-18); CO2 27 mmol/L (21-32); GLUCOSE,RANDOM 100 mg/dL (74-106); SGOT/AST 178 U/L (15-37); SGPT/ALT 75 U/L (12-78); TOT PROT 9.8 g/dl (6.4-8.2)
--- NOTE | 2017-03-07 10:29 | PN ---
[facility] CIWA - CIWA Score Nausea/Vomitin-No Nausea/No Vomiting Muscle Tremors: 4-Moderate,w/Arms Extend Anxiety: 4-Mod. Anxious/Guarded Agitation: 4-Moderately Restless Paroxysmal Sweats: 1-Minimal Palms Moist Orientation: 0-Oriented Tacttile Disturbances: 3-Moderate Itch/Numb/Burn Auditory Disturbances: 0-None Visual Disturbances: 0-None Headache: 0-None Present CIWA-Ar Total Score: 16 S Progress Note (SOAP) Subjective: ANXIETY,SWEATS, NASAL CONGESTION--USES FLONASE. Objective: 03/07/17 10:28 Vital Signs Temperature 98.0 F 03/07/17 09:43 Pulse Rate 103 H 03/07/17 09:43 Respiratory Rate 16 03/07/17 09:43 Blood Pressure 141/89 03/07/17 09:43 O2 Sat by Pulse Oximetry (%) Laboratory Last Values Urine Color Yellow 03/06/17 21:00 Urine Appearance Clear 03/06/17 21:00 Urine pH 5.0 (5.0-8.0) D 03/06/17 21:00 Ur Specific [place] 1.017 (1.001-1.035) 03/06/17 21:00 Urine Protein 1+ (NEGATIVE) H 03/06/17 21:00 Urine Glucose (UA) Negative (NEGATIVE) 03/06/17 21:00 Urine Ketones Negative (NEGATIVE) 03/06/17 21:00 Urine Blood 1+ (NEGATIVE) H 03/06/17 21:00 Urine Nitrite Negative (NEGATIVE) 03/06/17 21:00 Urine Bilirubin Negative (NEGATIVE) 03/06/17 21:00 Urine Urobilinogen 2.0 mg/dL (0.2-1.0) 03/06/17 21:00 Ur Leukocyte Esterase Negative (NEGATIVE) 03/06/17 21:00 Urine WBC (Auto) <1 /hpf (3-5) 03/06/17 21:00 Urine RBC (Auto) 1 /hpf (0-3) 03/06/17 21:00 Ur Epithelial Cells Rare /HPF (FEW) 03/06/17 21:00 Hyaline Casts 2 /lpf 03/06/17 21:00 Urine Mucus Rare 03/06/17 21:00 Assessment: 03/07/17 10:29 WITHDRAWAL SX Plan: CONTINUE DETOX REORDER FLONASE.
[2017-03-07] MEDS ORDERED: diphenhydrAMINE HCL 50 MG CAPSULE PO PRN (10:37)
[2017-03-07] MEDS: FLUTICASONE PROP 0.05% 16 GM NASAL SPRAY NS SCH ×2 (11:00→22:02)
--- NOTE | 2017-03-07 11:00 | CONSULT ---
[facility] Psychiatric Consult - Data Date of interview: 03/07/17 Admission source: [facility] Identifying data: This is one of multiple admission to [facility] for this 56 y/ o AA male seeking detoxification treatment on 3 for alcohol,cocaine (crack ) and marijuana dependence.Patient is single (never ),a father of two, domiciled,unemployed and supported on SSI benefits. Substance Abuse History: Confirmed by patient in this interview.See details in current [facility] report : Smoking history: Current every day smoker. Have you smoked in the past 12 months: Yes. Aproximately how many cigarettes per day: 5. Hx Chewing Tobacco Use: No. Initiated information on smoking cessation: Yes. 'Breaking Loose' booklet given: 03/06/17. - Substance & Tx. History. Hx Alcohol Use: Yes. Hx Substance Use: Yes. Substance Use Type: Alcohol, Cocaine , Marijuana. Hx Substance Use Treatment: Yes ([facility] 09/06/16 to 09/10/16). - Substances Abused. Alcohol. Route: Oral. Frequency: Daily. Amount used: 1 AND 1/2 PINTS NENITA. Age of first use: 12. Date of Last Use: 03/06/17. Cocaine. Route: Smoking. Frequency: 1-3 times last 30 days. Amount used: $ 20. Age of first use: 18. Date of Last Use: 02/27/17. Marijuana/Hashish. Route: Smoking. Frequency: 1-3 times last 30 days. Amount used: 1 JOINT. Age of first use: 12. Date of Last Use: 02/27/17 Medical History: Hepatitis C,hypertension,GERD and chronic weakness of left leg (discrete limp). Psychiatric History: Patient,in this encounter,admits to a remote history of one psychiatric hospitalization at a facility in [place].Diagnosis not recalled.Mr Bailey reports that years ago,at an inpatient rehabilitation program in [facility],he was diagnosed with MDD and treated with bupropion.Previous records confirm past use of remeron and wellbutrin (Dr Dia's note of 06/14/2015 + show card writer's note of 09/06/16).Patient has not been adherent to that medication for a month (self-report).No recent history of OPD care.Mr Bailey relies on primary care providers for refills (as evidenced by pharmacy claims of 12/25/16 for bupropion SR 150 mg / 30 day supply from [facility]).Patient is requesting resumption of wellbutrin in this hospital course.Patient denies history of suicide attempts. Physical/Sexual Abuse/Trauma History: No reported history of abuse. Additional Comment: Urine Drug Screen Results: KHOA-Cocaine, TCA-Tricyclic Antidepressant.Noted. Mental Status Exam - Mental Status Exam Alert and Oriented to: Time, Place, Person Cognitive Function: Good Patient Appearance: Well Groomed Mood: Nervous, Withdrawn, Hopeful Affect: Mood Congruent, Constricted Patient Behavior: Fatigued, Cooperative Speech Pattern: Clear, Appropriate Voice Loudness: Normal Thought Process: Intact, Goal Oriented Thought Disorder: Not Present Hallucinations: Denies Suicidal Ideation: Denies Homicidal Ideation: Denies Insight/Judgement: Poor Sleep: Well Appetite: Good Gait/Station: Other (not observed : patient supine during entire duration of interview) Psychiatric Findings - Problem List ([place] 1, 2,3) (1) Alcohol dependence with uncomplicated withdrawal Current Visit: Yes Status: Acute (2) Cocaine dependence Current Visit: Yes Status: Acute Qualifiers: Substance use status: uncomplicated Qualified Code(s): F14.20 - Cocaine dependence, uncomplicated (3) Cannabis dependence Current Visit: Yes Status: Acute (4) Nicotine dependence Current Visit: Yes Status: Acute Qualifiers: Nicotine product type: cigarettes Substance use status: uncomplicated Qualified Code(s): F17.210 - Nicotine dependence, cigarettes, uncomplicated (5) Drug-induced mood disorder Current Visit: Yes Status: Acute (6) Depressive disorder Current Visit: Yes Status: Chronic Comment: As per records and patient's self-report.No compliant with medications and aftercare. - Initial Treatment Plan Initial Treatment Plan: Previous records are revisited.Psychoeducation and support are provided in this session.Detoxification in progress.Medication : wellbutrin XL 150 mg po daily.Patient is informed of the risk of seizures.Confirmed history of good tolerability and effectiveness.Consent ( verbal) given for this treatment.Observation.
[2017-03-07] MEDS: THIAMINE HCL 100 MG TABLET (FP) PO SCH (22:00)
[2017-03-07] MEDS: hydrOXYzine PAMOATE 25 MG CAPSULE (FP) PO PRN (22:03)
[2017-03-08] MEDS: chlordiazePOXIDE HCL 25 MG CAPSULE PO SCH ×2 (06:16→10:03)
[2017-03-08 09:03] VITALS: BP 138/90; PULSE 105; TEMP 98.9
[2017-03-08] MEDS: FLUTICASONE PROP 0.05% 16 GM NASAL SPRAY NS SCH (10:00)
[2017-03-08] MEDS: PRENATAL VITAMINS W/ FOLIC ACID TABLET (FP) PO SCH (10:01)
--- NOTE | 2017-03-08 10:20 | PN ---
S CIWA - CIWA Score Nausea/Vomitin Muscle Tremors: 2 Anxiety: 3 Agitation: 3 Paroxysmal Sweats: 2 Orientation: 0-Oriented Tacttile Disturbances: 1-Very Mild Itch/Numbness Auditory Disturbances: 1-Very Mild Visual Disturbances: 1-Very Mild Sensitivity Headache: 2-Mild CIWA-Ar Total Score: 17 BHS Progress Note (SOAP) Subjective: Anxiety, irritability shakes. sweats Objective: 03/08/17 10:18 Vital Signs - 8 hr 03/08/17 03/08/17 03/08/17 03:25 06:14 09:03 Temperature 99.3 F 98.9 F Pulse Rate 93 H 105 H Respiratory 18 18 20 Rate Blood Pressure 131/92 138/90 Laboratory Last Values WBC 4.7 K/mm3 (4.0-10.0) D 03/07/17 05:45 RBC 3.89 M/mm3 (4.00-5.60) L 03/07/17 05:45 Hgb 12.2 GM/dL (11.7-16.9) 03/07/17 05:45 Hct 37.5 % (35.4-49) 03/07/17 05:45 MCV 96.3 fl (80-96) H 03/07/17 05:45 MCH 31.4 pg (25.7-33.7) 03/07/17 05:45 MCHC 32.6 g/dl (32.0-35.9) 03/07/17 05:45 RDW 12.9 % (11.9-15.9) 03/07/17 05:45 Plt Count 187 K/MM3 (134-434) 03/07/17 05:45 MPV 8.7 fl (7.5-11.1) 03/07/17 05:45 Sodium 134 mmol/L (136-145) L 03/07/17 05:45 Potassium 4.1 mmol/L (3.5-5.1) 03/07/17 05:45 Chloride 100 mmol/L (98-107) 03/07/17 05:45 Carbon Dioxide 27 mmol/L (21-32) 03/07/17 05:45 Anion Gap 7 (8-16) L 03/07/17 05:45 BUN 12 mg/dL (7-18) 03/07/17 05:45 Creatinine 1.0 mg/dL (0.7-1.3) 03/07/17 05:45 Creat Clearance w eGFR > 60 (>60) 03/07/17 05:45 Random Glucose 100 mg/dL (74-106) 03/07/17 05:45 Calcium 9.0 mg/dL (8.5-10.1) 03/07/17 05:45 Total Bilirubin 0.7 mg/dL (0.2-1.0) D 03/07/17 05:45 AST 178 U/L (15-37) H D 03/07/17 05:45 ALT 75 U/L (12-78) 03/07/17 05:45 Alkaline Phosphatase 102 U/L (45-117) 03/07/17 05:45 Total Protein 9.8 g/dl (6.4-8.2) H 03/07/17 05:45 Albumin 4.7 g/dl (3.4-5.0) 03/07/17 05:45 Urine Color Yellow 03/06/17 21:00 Urine Appearance Clear 03/06/17 21:00 Urine pH 5.0 (5.0-8.0) D 03/06/17 21:00 Ur Specific [place] 1.017 (1.001-1.035) 03/06/17 21:00 Urine Protein 1+ (NEGATIVE) H 03/06/17 21:00 Urine Glucose (UA) Negative (NEGATIVE) 03/06/17 21:00 Urine Ketones Negative (NEGATIVE) 03/06/17 21:00 Urine Blood 1+ (NEGATIVE) H 03/06/17 21:00 Urine Nitrite Negative (NEGATIVE) 03/06/17 21:00 Urine Bilirubin Negative (NEGATIVE) 03/06/17 21:00 Urine Urobilinogen 2.0 mg/dL (0.2-1.0) 03/06/17 21:00 Ur Leukocyte Esterase Negative (NEGATIVE) 03/06/17 21:00 Urine WBC (Auto) <1 /hpf (3-5) 03/06/17 21:00 Urine RBC (Auto) 1 /hpf (0-3) 03/06/17 21:00 Ur Epithelial Cells Rare /HPF (FEW) 03/06/17 21:00 Hyaline Casts 2 /lpf 03/06/17 21:00 Urine Mucus Rare 03/06/17 21:00 RPR Titer Nonreactive (NONREACTIVE) 03/07/17 05:45 Labs noted Assessment: 03/08/17 10:19 Withdrawal sx Plan: Continue detox
--- NOTE | 2017-03-08 16:16 | DS ---
[facility] Detox Discharge Summary Admission Date: 03/06/17 Discharge Date: 03/08/17 - History Present History: Alcohol Dependence, Cannabis Dependence, Cocaine Dependence Pertinent Past History: HTN, HLD, GERD and Hep C - Physical Exam Results Vital Signs: Vital Signs Temperature 98.9 F 03/08/17 09:03 Pulse Rate 105 H 03/08/17 09:03 Respiratory Rate 20 03/08/17 09:03 Blood Pressure 138/90 03/08/17 09:03 O2 Sat by Pulse Oximetry (%) Pertinent Admission Physical Exam Findings: Withdrawal sx Laboratory Last Values WBC 4.7 K/mm3 (4.0-10.0) D 03/07/17 05:45 RBC 3.89 M/mm3 (4.00-5.60) L 03/07/17 05:45 Hgb 12.2 GM/dL (11.7-16.9) 03/07/17 05:45 Hct 37.5 % (35.4-49) 03/07/17 05:45 MCV 96.3 fl (80-96) H 03/07/17 05:45 MCH 31.4 pg (25.7-33.7) 03/07/17 05:45 MCHC 32.6 g/dl (32.0-35.9) 03/07/17 05:45 RDW 12.9 % (11.9-15.9) 03/07/17 05:45 Plt Count 187 K/MM3 (134-434) 03/07/17 05:45 MPV 8.7 fl (7.5-11.1) 03/07/17 05:45 Sodium 134 mmol/L (136-145) L 03/07/17 05:45 Potassium 4.1 mmol/L (3.5-5.1) 03/07/17 05:45 Chloride 100 mmol/L (98-107) 03/07/17 05:45 Carbon Dioxide 27 mmol/L (21-32) 03/07/17 05:45 Anion Gap 7 (8-16) L 03/07/17 05:45 BUN 12 mg/dL (7-18) 03/07/17 05:45 Creatinine 1.0 mg/dL (0.7-1.3) 03/07/17 05:45 Creat Clearance w eGFR > 60 (>60) 03/07/17 05:45 Random Glucose 100 mg/dL (74-106) 03/07/17 05:45 Calcium 9.0 mg/dL (8.5-10.1) 03/07/17 05:45 Total Bilirubin 0.7 mg/dL (0.2-1.0) D 03/07/17 05:45 AST 178 U/L (15-37) H D 03/07/17 05:45 ALT 75 U/L (12-78) 03/07/17 05:45 Alkaline Phosphatase 102 U/L (45-117) 03/07/17 05:45 Total Protein 9.8 g/dl (6.4-8.2) H 03/07/17 05:45 Albumin 4.7 g/dl (3.4-5.0) 03/07/17 05:45 Urine Color Yellow 03/06/17 21:00 Urine Appearance Clear 03/06/17 21:00 Urine pH 5.0 (5.0-8.0) D 03/06/17 21:00 Ur Specific [place] 1.017 (1.001-1.035) 03/06/17 21:00 Urine Protein 1+ (NEGATIVE) H 03/06/17 21:00 Urine Glucose (UA) Negative (NEGATIVE) 03/06/17 21:00 Urine Ketones Negative (NEGATIVE) 03/06/17 21:00 Urine Blood 1+ (NEGATIVE) H 03/06/17 21:00 Urine Nitrite Negative (NEGATIVE) 03/06/17 21:00 Urine Bilirubin Negative (NEGATIVE) 03/06/17 21:00 Urine Urobilinogen 2.0 mg/dL (0.2-1.0) 03/06/17 21:00 Ur Leukocyte Esterase Negative (NEGATIVE) 03/06/17 21:00 Urine WBC (Auto) <1 /hpf (3-5) 03/06/17 21:00 Urine RBC (Auto) 1 /hpf (0-3) 03/06/17 21:00 Ur Epithelial Cells Rare /HPF (FEW) 03/06/17 21:00 Hyaline Casts 2 /lpf 03/06/17 21:00 Urine Mucus Rare 03/06/17 21:00 RPR Titer Nonreactive (NONREACTIVE) 03/07/17 05:45 Labs noted - Medication Discharge Medications: Ambulatory Orders Bupropion HCl [Wellbutrin Xl] 300 mg PO DAILY #30 tab.er.24h 09/06/16 Diphenhydramine [Benadryl -] 50 mg PO HS 03/06/17 Bupropion HCl [Wellbutrin Xl -] 150 mg PO DAILY #30 tab.sr.24h 03/07/17 Fluticasone Prop 0.05% Nasal [Flonase -] 1 spray IH BID 03/07/17 - Diagnosis (1) Alcohol dependence with uncomplicated withdrawal Status: Acute (2) Cannabis dependence Status: Acute (3) Cocaine dependence Status: Acute Qualifiers: Substance use status: uncomplicated Qualified Code(s): F14.20 - Cocaine dependence, uncomplicated (4) Nicotine dependence Status: Acute Qualifiers: Nicotine product type: cigarettes Substance use status: uncomplicated Qualified Code(s): F17.210 - Nicotine dependence, cigarettes, uncomplicated (5) GERD (gastroesophageal reflux disease) Status: Chronic Qualifiers: Esophagitis presence: esophagitis presence not specified Qualified Code(s) : K21.9 - Gastro-esophageal reflux disease without esophagitis - AMA Did Patient Leave Against Medical Advice: Yes
[2017-03-08] MEDS ORDERED: chlordiazePOXIDE 5 MG CAPSULE PO SCH (17:00)
--- NOTE | 2017-03-08 17:11 | EKG ---
Test Reason : Blood Pressure : / mmHG Vent. Rate : 086 BPM Atrial Rate : 086 BPM P-R Int : 118 ms QRS Dur : 080 ms QT Int : 372 ms P-R-T Axes : 062 042 058 degrees QTc Int : 445 ms NORMAL SINUS RHYTHM NORMAL ECG WHEN COMPARED WITH ECG OF 06-SEP-2016 09:05, NO SIGNIFICANT CHANGE WAS FOUND Confirmed by ANA MARIA GÓMEZ MD ([id number]) on 03/08/2017 5:10:51 PM Referred By: Confirmed By:ANA MARIA GÓMEZ MD
[2017-03-09] MEDS ORDERED: chlordiazePOXIDE HCL 10 MG CAPSULE PO SCH (17:00)
== END 2017-03-08 11:32 | disposition left against medical advice (07) | DRG 770 ==
LOC: YASAS 11:49 → Y6N 15:03 → UNDOADMIN 15:03 → Y3N 19:02
PROVIDERS: ADMIT Internal Medicine; ATTEND Internal Medicine
PROC: HZ2ZZZZ Detoxification Services for Substance Abuse Treatment (ICD-10-PCS; principal; 2017-03-06)
DX: F10.230 Alcohol dependence with withdrawal, uncomplicated (principal); F14.20 Cocaine dependence, uncomplicated; F12.20 Cannabis dependence, uncomplicated; F17.210 Nicotine dependence, cigarettes, uncomplicated; F41.8 Other specified anxiety disorders; F39 Unspecified mood [affective] disorder; B18.2 Chronic viral hepatitis C; I10 Essential (primary) hypertension; K21.9 Gastro-esophageal reflux disease without esophagitis; Z91.5 Personal history of self-harm
CPT/HCPCS: 36415; 80053; 81003; 81015; 85027; 86593; 93005; 93010

== ENCOUNTER 2018-03-30 12:49 | Inpatient (IN) | payer OTHER ==
[2018-03-30 14:07] VITALS: BMI 23.8
--- NOTE | 2018-03-30 14:54 | HP ---
CIWA Score Nausea/Vomitin Muscle Tremors: 2 Anxiety: 2 Agitation: 2 Paroxysmal Sweats: 1-Minimal Palms Moist Orientation: 0-Oriented Tacttile Disturbances: 1-Very Mild Itch/Numbness Auditory Disturbances: 1-Very Mild Visual Disturbances: 0-None Headache: 2-Mild CIWA-Ar Total Score: 13 - Admission Criteria OASAS Guidelines: Admission for Medically Managed Detox: Requires at least one of the followin. CIWA greater than 12 2. Seizures within the past 24 hours 3. Delirium tremens within the past 24 hours 4. Hallucinations within the past 24 hours 5. Acute intervention needed for co occurring medical disorder 6. Acute intervention needed for co occurring psychiatric disorder 7. Severe withdrawal that cannot be handled at a lower level of care (continued vomiting, continued diarrhea, abnormal vital signs) requiring intravenous medication and/or fluids 8. Patient presents the following: CIWA greater than 12 Admission Criteria Met: Admission criteria met Admission ROS [facility] - HPI Chief Complaint: i need help to stop drinking alcohol Allergies/Adverse Reactions: Allergies Allergy/AdvReac Type Severity Reaction Status Date / Time No Known Allergies Allergy Verified 03/30/18 14:28 History of Present Illness: this 58 years old male with alcohol dependence,seeking detox,last detox [facility] 01/11 to 03/08/17 multiple admissions in detox but keep relapsing history of htn,non compliance syncope positive ppd anxiety,depression,insomnia non compliance . plan for rehab after detox Exam Limitations: No Limitations - Ebola screening Have you traveled outside of the country in the last 21 days: No Have you had contact with anyone from an Ebola affected area: No Have you been sick,other than usual withdrawal symptoms: No Do you have a fever: No - Review of Systems Constitutional: Loss of Appetite, Malaise, Night Sweats, Changes in sleep EENT: reports: No Symptoms Reported Respiratory: reports: No Symptoms reported Cardiac: reports: No Symptoms Reported GI: reports: Nausea, Vomiting, Abdominal cramping : reports: No Symptoms Reported Musculoskeletal: reports: Back Pain, Muscle Pain Integumentary: reports: Dryness Neuro: reports: Tremors Endocrine: reports: No Symptoms Reported Hematology: reports: No Symptoms Reported Psychiatric: reports: Judgement Intact, Orientated x3, Anxious, Depressed Patient History - Patient Medical History Hx Anemia: No Hx Asthma: No Hx Chronic Obstructive Pulmonary Disease (COPD): No Hx Cancer: No Hx Cardiac Disorders: No Hx Congestive Heart Failure: No Hx Hypertension: Yes (non conpliance) Hx Hypercholesterolemia: Yes Hx Pacemaker: No HX Cerebrovascular Accident: No Hx Seizures: No Hx Dementia: No Hx Diabetes: No Hx Gastrointestinal Disorders: No Hx Liver Disease: Yes Hx Genitourinary Disorders: No Hx Sexually Transmitted Disorders: Yes (gonorrhea) Hx Renal Disease (ESRD): No Hx Thyroid Disease: No Hx Human Immunodeficiency Virus (HIV): No (last 2017 negative) Hx Hepatitis C: Yes Hx Depression: Yes (anxiety non compliance with medication) Hx Suicide Attempt: No Hx Bipolar Disorder: No Hx Schizophrenia: No Other Medical History: no sucidal,no homicidal - Patient Surgical History Past Surgical History: No Hx Neurologic Surgery: No Hx Cataract Extraction: No Hx Cardiac Surgery: No Hx Lung Surgery: No Hx Breast Surgery: No Hx Breast Biopsy: No Hx Abdominal Surgery: No Hx Appendectomy: No Hx Cholecystectomy: No Hx Genitourinary Surgery: No Hx Section: No Hx Orthopedic Surgery: No Anesthesia Reaction: No - PPD History Previous Implant?: Yes Documented Results: Positive w/o proof PPD to be Administered?: No - Smoking Cessation Smoking history: Current every day smoker Have you smoked in the past 12 months: Yes Aproximately how many cigarettes per day: 5 Hx Chewing Tobacco Use: No Initiated information on smoking cessation: Yes 'Breaking Loose' booklet given: 03/30/18 - Substance & Tx. History Hx Alcohol Use: Yes Hx Substance Use: No Substance Use Type: Alcohol Hx Substance Use Treatment: Yes ([facility] 03/[facility]/17 to 03/08/17 not completed) - Substances Abused Alcohol-javon/beer Route: Oral Frequency: Daily Amount used: 1 1/2 pts./2 (12 oz.) Age of first use: 12 Date of Last Use: 03/30/18 Family Disease History - Family Disease History Family Disease History: Other: Father (ETOH DEPENDENT) Admission Physical Exam [facility] - Vital Signs Vital Signs: Vital Signs - 24 hr 03/30/18 14:05 Temperature 98.9 F Pulse Rate 95 H Respiratory 18 Rate Blood Pressure 141/84 - Physical General Appearance: Yes: Mild Distress, Moderate Distress, Alcohol on Breath, Tremorous, Irritable, Sweating, Anxious HEENTM: Yes: Normal ENT Inspection, KAT, Pharynx Normal Respiratory: Yes: Lungs Clear, Normal Breath Sounds, No Respiratory Distress Neck: Yes: Within Normal Limits, Supple, Trachea in good position Breast: Yes: Within Normal Limits Cardiology: Yes: Within Normal Limits, Regular Rhythm, Regular Rate, S1, S2 Abdominal: Yes: Within Normal Limits, Normal Bowel Sounds, Non Tender, Soft Genitourinary: Yes: Within Normal Limits Back: Yes: Within Normal Limits, Normal Inspection, Muscle Spasm Musculoskeletal: Yes: Back pain, Muscle Pain Extremities: Yes: Within Normal Limits Neurological: Yes: Within Normal Limits, Alert, Motor Strength 5/5 Integumentary: Yes: Dry Lymphatic: Yes: Within Normal Limits - Diagnostic (1) Alcohol dependence with uncomplicated withdrawal Current Visit: No Status: Acute (2) Alcohol dependence with uncomplicated intoxication Current Visit: Yes Status: Acute (3) Nicotine dependence Current Visit: No Status: Acute Qualifiers: Nicotine product type: cigarettes Substance use status: uncomplicated Qualified Code(s): F17.210 - Nicotine dependence, cigarettes, uncomplicated (4) HTN (hypertension) Current Visit: Yes Status: Chronic Qualifiers: Hypertension type: essential hypertension Qualified Code(s): I10 - Essential (primary) hypertension (5) Hepatitis C Current Visit: Yes Status: Chronic Qualifiers: Viral hepatitis chronicity: chronic (6) Syncope Current Visit: Yes Status: Acute (7) Positive PPD Current Visit: Yes Status: Acute Cleared for Admission [facility] - Detox or Rehab [facility] Level of Care: Medically Managed Detox Regimen/Protocol: Librium [facility] Breath Alcohol Content Breath Alcohol Content: 0.303 Urine Drug Screen - Results Drug Screen Negative: Yes
[2018-03-30] MEDS ORDERED: MENTHOL/PHENOL 1 EACH UD MM PRN (15:09)
[2018-03-30] MEDS ORDERED: MAGNESIUM CITRATE 300 ML BOTTLE PO PRN (15:09)
[2018-03-30] MEDS ORDERED: MAG HYDROX/AL HYDROX/SIMETH 30 ML UNIT-DOSE CUP PO PRN (15:09)
[2018-03-30] MEDS ORDERED: MAGNESIUM HYDROX 2400MG/30ML ORAL SUSPENSION 30 ML CUP PO PRN (15:09)
[2018-03-30] MEDS ORDERED: guaiFENesin/D-METHORPHAN HB 10 ML UNIT-DOSE CUPS PO PRN (15:09)
[2018-03-30] MEDS ORDERED: LOPERAMIDE HCL 2 MG CAPSULE PO PRN (15:09)
[2018-03-30] MEDS ORDERED: P-EPHED 60MG/TRIPROLIDI 2.5MG TABLET PO PRN (15:09)
--- NOTE | 2018-03-30 17:30 | CONSULT ---
[facility] Psychiatric Consult - Data Date of interview: 03/30/18 Admission source: [facility] Identifying data: This is one of the multiple admissions to [facility] for this 58 years old single father of 2 grown children,domiciled,unemployed supported by [facility]. Substance Abuse History: Reports drining since 12 yo,1,5 pints of javon daily, marijuana since 12 yo 1 joint a few times a month,cocaine since 18 yo,$20 daily. Medical History: Significnat for HTN,GERD. Psychiatric History: Patient reports history of depression,anxiety,mood ninstability for years.He had one psychiatric hospitalization due to severe depressed mood,drug use.Carly was under my care at [facility] in 2013.He was on Wellbutrin XL 150 mg po daily with some response.He was also on Remeron 15 mg po hs.Patient repors poor compliance with psychiatric OPD care,obtains his psychotropic medications from his PCP.Patient is willing to restart Wellbutrin 300 mg po am. Will monitor progress. Physical/Sexual Abuse/Trauma History: denies Mental Status Exam - Mental Status Exam Alert and Oriented to: Time, Place, Person Cognitive Function: Grossly Intact Patient Appearance: Unkempt Mood: Depressed, Sad Affect: Mood Congruent, Labile Patient Behavior: Cooperative Speech Pattern: Clear Voice Loudness: Normal Thought Process: Goal Oriented Thought Disorder: Not Present Hallucinations: Denies Suicidal Ideation: Denies Homicidal Ideation: Denies Insight/Judgement: Fair Sleep: Difficulty falling asleep Appetite: Fair Muscle strength/Tone: Normal Gait/Station: Normal Psychiatric Findings - Problem List ([place] 1, 2,3) (1) Alcohol dependence Current Visit: Yes Status: Chronic (2) Substance induced mood disorder Current Visit: Yes Status: Chronic (3) Cannabis dependence Current Visit: Yes Status: Chronic (4) Cocaine dependence Current Visit: Yes Status: Chronic Qualifiers: Substance use status: uncomplicated Qualified Code(s): F14.20 - Cocaine dependence, uncomplicated (5) GERD (gastroesophageal reflux disease) Current Visit: Yes Status: Chronic Qualifiers: Esophagitis presence: esophagitis presence not specified Qualified Code(s) : K21.9 - Gastro-esophageal reflux disease without esophagitis (6) HTN (hypertension) Current Visit: Yes Status: Chronic Qualifiers: Hypertension type: essential hypertension Qualified Code(s): I10 - Essential (primary) hypertension (7) Hepatitis C Current Visit: Yes Status: Chronic Qualifiers: Viral hepatitis chronicity: chronic (8) Hypercholesteremia Current Visit: No Status: Chronic - Initial Treatment Plan Initial Treatment Plan: Wellbutrin 300 mg po daily,Benadryl 50 mg po hs.
[2018-03-30] MEDS: chlordiazePOXIDE HCL 25 MG CAPSULE PO PRN (20:31)
[2018-03-30] MEDS: THIAMINE HCL 100 MG TABLET (FP) PO SCH (22:11)
[2018-03-30] MEDS: diphenhydrAMINE HCL 25 MG CAPSULE (FP) PO PRN (22:12)
[2018-03-30] MEDS: chlordiazePOXIDE HCL 25 MG CAPSULE PO SCH (22:12)
[2018-03-31] MEDS: hydrOXYzine PAMOATE 50 MG CAPSULE (FP) PO PRN ×3 (03:47→17:01)
[2018-03-31] MEDS: chlordiazePOXIDE HCL 25 MG CAPSULE PO SCH ×4 (05:42→22:37)
[2018-03-31 10:21] LABS: ALBUMIN 3.9 g/dl (3.4-5.0); ALK PHOS 117 U/L (45-117); ANION GAP 7 MMOL/L (8-16); BILIRUBIN,TOTAL 1.4 mg/dL (0.2-1); BLOOD UREA NITROGEN 14 mg/dL (7-18); CALCIUM 8.8 mg/dL (8.5-10.1); CHLORIDE 98 mmol/L (98-107); CO2 28 mmol/L (21-32); GLUCOSE,RANDOM 82 mg/dL (74-106); POTASSIUM 3.9 mmol/L (3.5-5.1); SGOT/AST 158 U/L (15-37); SGPT/ALT 43 U/L (13-61); SODIUM 133 mmol/L (136-145)
[2018-03-31 10:32] LABS: HEMATOCRIT 31.7 % (35.4-49); HEMOGLOBIN 11.1 GM/dL (11.7-16.9); MCH 32.8 pg (25.7-33.7); MCHC 35.1 g/dl (32.0-35.9); MEAN CELL VOLUME 93.4 fl (80-96); MEAN PLT VOLUME 8.1 fl (7.5-11.1); PLATELET COUNT 114 K/MM3 (134-434); RBC 3.39 M/mm3 (4.00-5.60); RDW 12.4 % (11.9-15.9); WHITE BLOOD COUNT 3.7 K/mm3 (4.0-10.0)
[2018-03-31] MEDS: PRENATAL VITAMINS W/ FOLIC ACID TABLET (FP) PO SCH (10:40)
--- NOTE | 2018-03-31 10:55 | PN ---
[facility] CIWA - CIWA Score Nausea/Vomitin-No Nausea/No Vomiting Muscle Tremors: 3 Anxiety: 3 Agitation: 3 Paroxysmal Sweats: 3 Orientation: 0-Oriented Tacttile Disturbances: 0-None Auditory Disturbances: 0-None Visual Disturbances: 0-None Headache: 0-None Present CIWA-Ar Total Score: 12 S Progress Note (SOAP) Subjective: sweats interrupted sleep I need my benadryl to help me sleep body aches Objective: 03/31/18 10:53 Vital Signs Temperature 99.5 F 03/31/18 09:21 Pulse Rate 89 03/31/18 09:21 Respiratory Rate 16 03/31/18 09:21 Blood Pressure 132/87 03/31/18 09:21 O2 Sat by Pulse Oximetry (%) Laboratory Tests 03/31/18 03/31/18 07:00 07:00 WBC 3.7 L RBC 3.39 L Hgb 11.1 L Hct 31.7 L D MCV 93.4 MCH 32.8 MCHC 35.1 RDW 12.4 Plt Count 114 L D MPV 8.1 Sodium 133 L Potassium 3.9 Chloride 98 Carbon Dioxide 28 Anion Gap 7 L BUN 14 Creatinine 1.0 Creat Clearance w eGFR > 60 Random Glucose 82 Calcium 8.8 Total Bilirubin 1.4 H AST 158 H ALT 43 Alkaline Phosphatase 117 Total Protein 9.0 H Albumin 3.9 aaox3 ambulating no acute distress Assessment: 03/31/18 10:53 withdrawal sx Plan: continue detox increase fluids benadryl ordered
[2018-03-31] MEDS: ACETAMINOPHEN 325 MG TABLET (FP) PO PRN ×2 (15:21→22:39)
[2018-03-31] MEDS: THIAMINE HCL 100 MG TABLET (FP) PO SCH (22:37)
[2018-03-31] MEDS: diphenhydrAMINE HCL 25 MG CAPSULE (FP) PO PRN (22:38)
[2018-04-01] MEDS: MELATONIN 5 MG TABLETS PO PRN (01:35)
[2018-04-01] MEDS: chlordiazePOXIDE HCL 25 MG CAPSULE PO SCH ×3 (06:17→17:36)
--- NOTE | 2018-04-01 10:15 | PN ---
[facility] CIWA - CIWA Score Nausea/Vomitin-No Nausea/No Vomiting Muscle Tremors: 3 Anxiety: 3 Agitation: 2 Paroxysmal Sweats: 2 Orientation: 0-Oriented Tacttile Disturbances: 0-None Auditory Disturbances: 0-None Visual Disturbances: 0-None Headache: 0-None Present CIWA-Ar Total Score: 10 [facility] Progress Note (SOAP) Subjective: nasal congestion sweats chills body aches Objective: 04/01/18 10:14 Vital Signs Temperature 98.1 F 04/01/18 09:36 Pulse Rate 93 H 04/01/18 09:36 Respiratory Rate 20 04/01/18 09:36 Blood Pressure 110/75 04/01/18 09:36 O2 Sat by Pulse Oximetry (%) Laboratory Tests 03/31/18 03/31/18 07:00 07:00 WBC 3.7 L RBC 3.39 L Hgb 11.1 L Hct 31.7 L D MCV 93.4 MCH 32.8 MCHC 35.1 RDW 12.4 Plt Count 114 L D MPV 8.1 Sodium 133 L Potassium 3.9 Chloride 98 Carbon Dioxide 28 Anion Gap 7 L BUN 14 Creatinine 1.0 Creat Clearance w eGFR > 60 Random Glucose 82 Calcium 8.8 Total Bilirubin 1.4 H AST 158 H ALT 43 Alkaline Phosphatase 117 Total Protein 9.0 H Albumin 3.9 aaox3 ambulating no acute distress Assessment: 04/01/18 10:15 withdrawal sx Plan: continue detox ocean spray prn increase fluids
[2018-04-01] MEDS: PRENATAL VITAMINS W/ FOLIC ACID TABLET (FP) PO SCH (10:29)
[2018-04-01] MEDS: IBUPROFEN 400 MG TABLET (FP) PO PRN ×2 (10:31→22:51)
[2018-04-01] MEDS ORDERED: SODIUM CHLORIDE NASAL SPRAY 44 ML BOTTLE NS PRN (10:45)
--- NOTE | 2018-04-01 14:12 | PN ---
[facility] Progress Note Note: pt c/o of "feeling body achy and weak." labs reviewed; minimal low H:H iron supplement 325mg tid ordered motirn 400mg prn labs repeated for tomorrow will f/u
[2018-04-01] MEDS ORDERED: FERROUS SO4 325 MG TABLET (FP) PO ONE (14:30)
[2018-04-01] MEDS: FERROUS SO4 325 MG TABLET (FP) PO SCH (17:36)
[2018-04-01] MEDS: chlordiazePOXIDE 5 MG CAPSULE PO SCH (22:51)
[2018-04-01] MEDS: THIAMINE HCL 100 MG TABLET (FP) PO SCH (22:51)
[2018-04-01] MEDS: diphenhydrAMINE HCL 25 MG CAPSULE (FP) PO PRN (22:51)
[2018-04-02] MEDS: chlordiazePOXIDE HCL 25 MG CAPSULE PO PRN (00:35)
[2018-04-02] MEDS: MELATONIN 5 MG TABLETS PO PRN (00:35)
[2018-04-02] MEDS: ACETAMINOPHEN 325 MG TABLET (FP) PO PRN (00:35)
[2018-04-02] MEDS: chlordiazePOXIDE 5 MG CAPSULE PO SCH (05:57)
[2018-04-02] MEDS: FERROUS SO4 325 MG TABLET (FP) PO SCH (07:57)
[2018-04-02 08:23] VITALS: BP 139/92; PULSE 95; TEMP 96.1
--- NOTE | 2018-04-02 08:54 | PN ---
[facility] Progress Note Note: pt states he wants to go home he has no withdrawals and wants to rest at home. pt was made aware of new labs that were drawn are pending and he should wait for the results but he is insisting on leaving. Pt states he will make it a point to go to his PCP if he needs to. pt signed out AMA.
--- NOTE | 2018-04-02 09:01 | DS ---
[facility] Detox Discharge Summary Admission Date: 03/30/18 - History Present History: Alcohol Dependence - Physical Exam Results Vital Signs: Vital Signs Temperature 96.1 F L 04/02/18 08:21 Pulse Rate 95 H 04/02/18 08:21 Respiratory Rate 20 04/02/18 08:21 Blood Pressure 139/92 04/02/18 08:21 O2 Sat by Pulse Oximetry (%) - Treatment Hospital Course: Detox Protocol Followed, Discharged Condition Good - Medication Discharge Medications: Ambulatory Orders Bupropion HCl [Wellbutrin Xl] 300 mg PO DAILY #30 tab.er.24h 09/06/16 Diphenhydramine [Benadryl -] 50 mg PO HS 03/06/17 - Diagnosis (1) Alcohol dependence with uncomplicated intoxication Current Visit: Yes Status: Chronic (2) Positive PPD Current Visit: Yes Status: Acute (3) Syncope Current Visit: Yes Status: Acute (4) Cannabis dependence Current Visit: Yes Status: Chronic (5) Cocaine dependence Current Visit: Yes Status: Chronic Qualifiers: Substance use status: uncomplicated Qualified Code(s): F14.20 - Cocaine dependence, uncomplicated (6) GERD (gastroesophageal reflux disease) Current Visit: Yes Status: Chronic Qualifiers: Esophagitis presence: esophagitis presence not specified Qualified Code(s) : K21.9 - Gastro-esophageal reflux disease without esophagitis (7) HTN (hypertension) Current Visit: Yes Status: Chronic Qualifiers: Hypertension type: essential hypertension Qualified Code(s): I10 - Essential (primary) hypertension (8) Hepatitis C Current Visit: Yes Status: Chronic Qualifiers: Viral hepatitis chronicity: chronic Hepatic coma status: without hepatic coma Qualified Code(s): B18.2 - Chronic viral hepatitis C (9) Substance induced mood disorder Current Visit: Yes Status: Chronic (10) Depression Current Visit: No Status: Acute (11) Drug-induced mood disorder Current Visit: No Status: Acute (12) Hypokalemia Current Visit: No Status: Acute (13) Nicotine dependence Current Visit: No Status: Acute Qualifiers: Nicotine product type: cigarettes Substance use status: uncomplicated Qualified Code(s): F17.210 - Nicotine dependence, cigarettes, uncomplicated (14) Alcohol dependence Current Visit: No Status: Chronic (15) Anxiety and depression Current Visit: No Status: Chronic (16) Depressive disorder Current Visit: No Status: Chronic (17) Hypercholesteremia Current Visit: No Status: Chronic - AMA Did Patient Leave Against Medical Advice: Yes (going home)
[2018-04-02 10:28] LABS: BASO % 0.8 % (0-2.0); EOS % 3.9 % (0-4.5); HEMATOCRIT 32.8 % (35.4-49); HEMOGLOBIN 11.3 GM/dL (11.7-16.9); LYMPH % 26.1 % (8-40); MCH 32.6 pg (25.7-33.7); MCHC 34.6 g/dl (32.0-35.9); MEAN CELL VOLUME 94.3 fl (80-96); MEAN PLT VOLUME 8.8 fl (7.5-11.1); MONO % 8.8 % (3.8-10.2); NEUT % 60.4 % (42.8-82.8); PLATELET COUNT 138 K/MM3 (134-434); RBC 3.48 M/mm3 (4.00-5.60); RDW 12.2 % (11.9-15.9); WHITE BLOOD COUNT 4.4 K/mm3 (4.0-10.0)
[2018-04-02 11:05] LABS: ALBUMIN 4.2 g/dl (3.4-5.0); ALK PHOS 117 U/L (45-117); ANION GAP 8 MMOL/L (8-16); BILIRUBIN,TOTAL 1.4 mg/dL (0.2-1); BLOOD UREA NITROGEN 14 mg/dL (7-18); CALCIUM 9.4 mg/dL (8.5-10.1); CHLORIDE 99 mmol/L (98-107); CO2 27 mmol/L (21-32); CREATININE 1.8 mg/dL (0.55-1.3); GLUCOSE,RANDOM 108 mg/dL (74-106); SGOT/AST 95 U/L (15-37); SGPT/ALT 35 U/L (13-61); SODIUM 135 mmol/L (136-145); TOT PROT 9.4 g/dl (6.4-8.2)
[2018-04-02] MEDS ORDERED: chlordiazePOXIDE HCL 10 MG CAPSULE PO SCH (23:00)
== END 2018-04-02 09:05 | disposition left against medical advice (07) | DRG 770 ==
LOC: YASAS 12:49 → Y6N 15:31
PROVIDERS: ADMIT Neuromusculoskeletal Medicine & OMM; ATTEND Neuromusculoskeletal Medicine & OMM
PROC: HZ2ZZZZ Detoxification Services for Substance Abuse Treatment (ICD-10-PCS; principal; 2018-03-30)
DX: F10.230 Alcohol dependence with withdrawal, uncomplicated (principal); F10.220 Alcohol dependence with intoxication, uncomplicated; F14.20 Cocaine dependence, uncomplicated; F12.20 Cannabis dependence, uncomplicated; F17.210 Nicotine dependence, cigarettes, uncomplicated; F19.24 Other psychoactive substance dependence with psychoactive substance-induced mood disorder; F32.9 Major depressive disorder, single episode, unspecified; F41.9 Anxiety disorder, unspecified; I10 Essential (primary) hypertension; K21.9 Gastro-esophageal reflux disease without esophagitis; B18.2 Chronic viral hepatitis C; E87.6 Hypokalemia; R76.11 Nonspecific reaction to tuberculin skin test without active tuberculosis; E86.0 Dehydration; E78.00 Pure hypercholesterolemia, unspecified; Z87.438 Personal history of other diseases of male genital organs; Z91.14 Patient's other noncompliance with medication regimen
CPT/HCPCS: 36415; 71045-TC-FY; 80053; 85025; 85027; 86593

== ENCOUNTER 2019-04-05 11:25 | Inpatient (IN) | payer OTHER ==
--- NOTE | 2019-04-05 13:35 | HP ---
CIWA Score Nausea/Vomitin-No Nausea/No Vomiting Muscle Tremors: 4-Moderate,w/Arms Extend Anxiety: 3 Agitation: 3 Paroxysmal Sweats: 1-Minimal Palms Moist Orientation: 0-Oriented Tacttile Disturbances: 0-None Auditory Disturbances: 0-None Visual Disturbances: 1-Very Mild Sensitivity Headache: 1-Very Mild CIWA-Ar Total Score: 13 - Admission Criteria OASAS Guidelines: Admission for Medically Managed Detox: Requires at least one of the followin. CIWA greater than 12 2. Seizures within the past 24 hours 3. Delirium tremens within the past 24 hours 4. Hallucinations within the past 24 hours 5. Acute intervention needed for co occurring medical disorder 6. Acute intervention needed for co occurring psychiatric disorder 7. Severe withdrawal that cannot be handled at a lower level of care (continued vomiting, continued diarrhea, abnormal vital signs) requiring intravenous medication and/or fluids 8. Admitting History and Physical - Admission Chief Complaint: Mr. Bailey presents to [facility] requesting detox from alcohol. History of Present Illness: Mr. Bailey presents to [facility] requesting detox from alcohol. He is a 59 yo gentleman who was last here in March 2018. He states that he is here to " get sober". PMH: HTN, positive PPD, environmental allergies Psych: depression on Wellbutrin Substance use history EtOH: 1 pint javon per day, last drink 9:30 am. No history of black outs. Seizure 3 mos ago in withdrawal. First drink age 12y. Heroin: not now, first use 19 yo, last use 23 yo. Never IV drug use Nicotine: 5 cigs per day Denies: current cocaine History Source: Patient Limitations to Obtaining History: No Limitations - Past Medical History Cardiovascular: Yes: HTN Infectious Disease: Yes: Other (positive PPD) - Smoking History Smoking history: Current every day smoker Have you smoked in the past 12 months: Yes Aproximately how many cigarettes per day: 5 - Alcohol/Substance Use Hx Alcohol Use: Yes Admission [facility] Allergies/Adverse Reactions: Allergies Allergy/AdvReac Type Severity Reaction Status Date / Time No Known Allergies Allergy Verified 03/30/18 14:28 Exam Limitations: No Limitations - Ebola screening Have you traveled outside of the country in the last 21 days: No Have you had contact with anyone from an Ebola affected area: No Have you been sick,other than usual withdrawal symptoms: No Do you have a fever: No - Review of Systems Constitutional: No Symptoms Reported EENT: reports: Nose Congestion Respiratory: reports: No Symptoms reported Cardiac: reports: No Symptoms Reported GI: reports: No Symptoms Reported : reports: No Symptoms Reported Musculoskeletal: reports: Back Pain, Other (leg pain, ambulates with a cane, knee pain) Integumentary: reports: No Symptoms Reported Neuro: reports: No Symptoms reported Endocrine: reports: No Symptoms Reported Hematology: reports: No Symptoms Reported Psychiatric: reports: Depressed Patient History - Patient Medical History Hx Anemia: No Hx Asthma: No Hx Chronic Obstructive Pulmonary Disease (COPD): No Hx Cancer: No Hx Cardiac Disorders: No Hx Congestive Heart Failure: No Hx Hypertension: Yes (non conpliance) Hx Hypercholesterolemia: Yes Hx Pacemaker: No HX Cerebrovascular Accident: No Hx Seizures: No Hx Dementia: No Hx Diabetes: No Hx Gastrointestinal Disorders: No Hx Liver Disease: Yes Hx Genitourinary Disorders: No Hx Sexually Transmitted Disorders: Yes (gonorrhea) Hx Renal Disease (ESRD): No Hx Thyroid Disease: No Hx Human Immunodeficiency Virus (HIV): No (last 2017 negative) Hx Hepatitis C: Yes Hx Depression: Yes (anxiety non compliance with medication) Hx Suicide Attempt: No Hx Bipolar Disorder: No Hx Schizophrenia: No - Patient Surgical History Past Surgical History: No Hx Neurologic Surgery: No Hx Cataract Extraction: No Hx Cardiac Surgery: No Hx Lung Surgery: No Hx Breast Surgery: No Hx Breast Biopsy: No Hx Abdominal Surgery: No Hx Appendectomy: No Hx Cholecystectomy: No Hx Genitourinary Surgery: No Hx Section: No Hx Orthopedic Surgery: No Anesthesia Reaction: No - Smoking Cessation Smoking history: Current every day smoker Have you smoked in the past 12 months: Yes Aproximately how many cigarettes per day: 5 Hx Chewing Tobacco Use: No Initiated information on smoking cessation: Yes 'Breaking Loose' booklet given: 04/05/19 - Substances abused Alcohol Frequency: Daily Amount used: 1 pint Vodka Age of first use: 12 Date of last use: 04/05/19 Admission Physical Exam [facility] - Physical General Appearance: Yes: Within Normal Limits, Alcohol on Breath HEENTM: Yes: Hearing grossly Normal Respiratory: Yes: Lungs Clear, Normal Breath Sounds Neck: Yes: Within Normal Limits Breast: Yes: Breast Exam Deferred Cardiology: Yes: Regular Rate, S1, S2 Abdominal: Yes: Within Normal Limits, Hernia Genitourinary: Yes: Other (deferred) Back: Yes: Normal Inspection Musculoskeletal: Yes: Other (mildly unsteady, cautious) Extremities: Yes: Other (old scar left villar, s/p fall) Neurological: Yes: Fully Oriented, Alert Cleared for Admission S - Detox or Rehab [facility] Level of Care: Medically Managed Inpatient Rehab Admission - Rehab Decision to Admit Inpatient rehab admission?: No
[2019-04-05] MEDS ORDERED: MAGNESIUM CITRATE 300 ML BOTTLE PO PRN (13:48)
[2019-04-05] MEDS ORDERED: hydrOXYzine PAMOATE 25 MG CAPSULE (FP) PO PRN (13:48)
[2019-04-05] MEDS ORDERED: ACETAMINOPHEN 325 MG TABLET (FP) PO PRN ×2 (13:48)
[2019-04-05] MEDS ORDERED: MAG HYDROX/AL HYDROX/SIMETH 30 ML UNIT-DOSE CUP PO PRN (13:48)
[2019-04-05] MEDS ORDERED: MENTHOL/PHENOL 1 EACH UD MM PRN (13:48)
[2019-04-05] MEDS ORDERED: METHOCARBAMOL 500 MG TABLET PO PRN (13:48)
[2019-04-05] MEDS ORDERED: chlordiazePOXIDE HCL 25 MG CAPSULE PO PRN (13:48)
[2019-04-05] MEDS ORDERED: MELATONIN 5 MG TABLETS PO PRN (13:48)
[2019-04-05] MEDS ORDERED: MAGNESIUM HYDROX 2400MG/30ML ORAL SUSPENSION 30 ML CUP PO PRN (13:48)
[2019-04-05] MEDS ORDERED: BISMUTH SUBSALICYLATE 262 MG/15 ML BTL PO PRN (13:48)
[2019-04-05 14:04] VITALS: BMI 22.9
[2019-04-05 17:23] LABS: HEMATOCRIT 32.9 % (35.4-49); MCH 31.3 pg (25.7-33.7); MCHC 33.4 g/dl (32.0-35.9); MEAN CELL VOLUME 93.9 fl (80-96); PLATELET COUNT 141 K/MM3 (134-434); RDW 13.2 % (11.9-15.9); WHITE BLOOD COUNT 3.3 K/mm3 (4.0-10.0)
[2019-04-05] MEDS: chlordiazePOXIDE HCL 25 MG CAPSULE PO SCH ×2 (17:33→22:27)
[2019-04-05] MEDS: IBUPROFEN 400 MG TABLET (FP) PO PRN (17:33)
[2019-04-05 17:55] LABS: ALBUMIN 3.6 g/dl (3.4-5.0); BILIRUBIN,TOTAL 0.9 mg/dL (0.2-1); CALCIUM 8.6 mg/dL (8.5-10.1); CREATININE 1.3 mg/dL (0.55-1.3); POTASSIUM 3.9 mmol/L (3.5-5.1); TOT PROT 8.6 g/dl (6.4-8.2)
[2019-04-05] MEDS ORDERED: diphenhydrAMINE HCL 25 MG CAPSULE (FP) PO ONE (21:49)
[2019-04-05] MEDS: THIAMINE HCL 100 MG TABLET (FP) PO SCH (22:27)
[2019-04-05] MEDS: diphenhydrAMINE HCL 50 MG CAPSULE PO SCH (22:27)
[2019-04-06] MEDS: chlordiazePOXIDE HCL 25 MG CAPSULE PO SCH ×4 (05:46→22:16)
--- NOTE | 2019-04-06 10:35 | PN ---
S CIWA - CIWA Score Nausea/Vomitin-Mild Nausea/No Vomiting Muscle Tremors: 2 Anxiety: 2 Agitation: 2 Paroxysmal Sweats: No Perspiration Orientation: 0-Oriented Tacttile Disturbances: 1-Very Mild Itch/Numbness Auditory Disturbances: 0-None Visual Disturbances: 0-None Headache: 2-Mild CIWA-Ar Total Score: 10 S Progress Note (SOAP) Subjective: alert,irritable,anxious,interrupted sleep,tremor Objective: 04/06/19 10:33 Vital Signs Temperature 98.6 F 04/06/19 08:37 Pulse Rate 62 04/06/19 08:37 Respiratory Rate 17 04/06/19 08:37 Blood Pressure 148/92 04/06/19 08:37 O2 Sat by Pulse Oximetry (%) Laboratory Last Values WBC 3.3 K/mm3 (4.0-10.0) L 04/05/19 13:55 RBC 3.50 M/mm3 (4.00-5.60) L 04/05/19 13:55 Hgb 11.0 GM/dL (11.7-16.9) L 04/05/19 13:55 Hct 32.9 % (35.4-49) L 04/05/19 13:55 MCV 93.9 fl (80-96) 04/05/19 13:55 MCH 31.3 pg (25.7-33.7) 04/05/19 13:55 MCHC 33.4 g/dl (32.0-35.9) 04/05/19 13:55 RDW 13.2 % (11.9-15.9) 04/05/19 13:55 Plt Count 141 K/MM3 (134-434) 04/05/19 13:55 MPV 8.0 fl (7.5-11.1) 04/05/19 13:55 Sodium 141 mmol/L (136-145) 04/05/19 13:55 Potassium 3.9 mmol/L (3.5-5.1) 04/05/19 13:55 Chloride 108 mmol/L (98-107) H 04/05/19 13:55 Carbon Dioxide 25 mmol/L (21-32) 04/05/19 13:55 Anion Gap 8 MMOL/L (8-16) 04/05/19 13:55 BUN 7.0 mg/dL (7-18) 04/05/19 13:55 Creatinine 1.3 mg/dL (0.55-1.3) 04/05/19 13:55 Est GFR (CKD-EPI)AfAm 68.25 04/05/19 13:55 Est GFR (CKD-EPI)NonAf 58.89 04/05/19 13:55 Random Glucose 96 mg/dL (74-106) 04/05/19 13:55 Calcium 8.6 mg/dL (8.5-10.1) 04/05/19 13:55 Total Bilirubin 0.9 mg/dL (0.2-1) 04/05/19 13:55 AST 72 U/L (15-37) H 04/05/19 13:55 ALT 28 U/L (13-61) 04/05/19 13:55 Alkaline Phosphatase 103 U/L (45-117) 04/05/19 13:55 Total Protein 8.6 g/dl (6.4-8.2) H 04/05/19 13:55 Albumin 3.6 g/dl (3.4-5.0) 04/05/19 13:55 04/06/19 10:34 rpr pending Assessment: 04/06/19 10:34 withdrawal symptom Plan: continue detox librium regimen
[2019-04-06] MEDS: PRENATAL VITAMINS W/ FOLIC ACID TABLET (FP) PO SCH (10:38)
[2019-04-06] MEDS ORDERED: diphenhydrAMINE HCL 25 MG CAPSULE (FP) PO ONE (21:51)
[2019-04-06] MEDS: diphenhydrAMINE HCL 50 MG CAPSULE PO SCH (22:17)
[2019-04-06] MEDS: THIAMINE HCL 100 MG TABLET (FP) PO SCH (22:21)
[2019-04-06] MEDS: IBUPROFEN 400 MG TABLET (FP) PO PRN (22:21)
[2019-04-07] MEDS: chlordiazePOXIDE HCL 25 MG CAPSULE PO SCH ×4 (07:19→22:25)
[2019-04-07] MEDS: IBUPROFEN 400 MG TABLET (FP) PO PRN ×2 (07:21→22:27)
--- NOTE | 2019-04-07 10:00 | PN ---
[facility] CIWA - CIWA Score Nausea/Vomitin-Mild Nausea/No Vomiting Muscle Tremors: 2 Anxiety: 1-Mildly Anxious Agitation: 1-Slight > Activity Paroxysmal Sweats: No Perspiration Orientation: 0-Oriented Tacttile Disturbances: 1-Very Mild Itch/Numbness Auditory Disturbances: 0-None Visual Disturbances: 0-None Headache: 1-Very Mild CIWA-Ar Total Score: 7 S Progress Note (SOAP) Subjective: alert,feel weak,irritable,interrupted sleep,pain in the body Objective: 04/07/19 09:57 Vital Signs Temperature 99.4 F 04/06/19 20:37 Pulse Rate 82 04/06/19 20:37 Respiratory Rate 18 04/07/19 03:39 Blood Pressure 139/82 04/06/19 20:37 O2 Sat by Pulse Oximetry (%) Laboratory Last Values WBC 3.3 K/mm3 (4.0-10.0) L 04/05/19 13:55 RBC 3.50 M/mm3 (4.00-5.60) L 04/05/19 13:55 Hgb 11.0 GM/dL (11.7-16.9) L 04/05/19 13:55 Hct 32.9 % (35.4-49) L 04/05/19 13:55 MCV 93.9 fl (80-96) 04/05/19 13:55 MCH 31.3 pg (25.7-33.7) 04/05/19 13:55 MCHC 33.4 g/dl (32.0-35.9) 04/05/19 13:55 RDW 13.2 % (11.9-15.9) 04/05/19 13:55 Plt Count 141 K/MM3 (134-434) 04/05/19 13:55 MPV 8.0 fl (7.5-11.1) 04/05/19 13:55 Sodium 141 mmol/L (136-145) 04/05/19 13:55 Potassium 3.9 mmol/L (3.5-5.1) 04/05/19 13:55 Chloride 108 mmol/L (98-107) H 04/05/19 13:55 Carbon Dioxide 25 mmol/L (21-32) 04/05/19 13:55 Anion Gap 8 MMOL/L (8-16) 04/05/19 13:55 BUN 7.0 mg/dL (7-18) 04/05/19 13:55 Creatinine 1.3 mg/dL (0.55-1.3) 04/05/19 13:55 Est GFR (CKD-EPI)AfAm 68.25 04/05/19 13:55 Est GFR (CKD-EPI)NonAf 58.89 04/05/19 13:55 Random Glucose 96 mg/dL (74-106) 04/05/19 13:55 Calcium 8.6 mg/dL (8.5-10.1) 04/05/19 13:55 Total Bilirubin 0.9 mg/dL (0.2-1) 04/05/19 13:55 AST 72 U/L (15-37) H 04/05/19 13:55 ALT 28 U/L (13-61) 04/05/19 13:55 Alkaline Phosphatase 103 U/L (45-117) 04/05/19 13:55 Total Protein 8.6 g/dl (6.4-8.2) H 04/05/19 13:55 Albumin 3.6 g/dl (3.4-5.0) 04/05/19 13:55 RPR Titer Nonreactive (NONREACTIVE) 04/05/19 13:55 Assessment: 04/07/19 09:59 withdrawal symptom Plan: continue detox librium regimen
[2019-04-07] MEDS: FLUTICASONE PROP 0.05% 16 GM NASAL SPRAY NS SCH (10:48)
[2019-04-07] MEDS: PRENATAL VITAMINS W/ FOLIC ACID TABLET (FP) PO SCH (10:49)
[2019-04-07] MEDS ORDERED: diphenhydrAMINE HCL 25 MG CAPSULE (FP) PO ONE (21:43)
[2019-04-07] MEDS: diphenhydrAMINE HCL 50 MG CAPSULE PO SCH (22:25)
[2019-04-07] MEDS: THIAMINE HCL 100 MG TABLET (FP) PO SCH (22:25)
[2019-04-08] MEDS ORDERED: chlordiazePOXIDE HCL 10 MG CAPSULE PO PRN
[2019-04-08] MEDS: chlordiazePOXIDE HCL 10 MG CAPSULE PO SCH ×4 (05:30→22:31)
[2019-04-08] MEDS: IBUPROFEN 400 MG TABLET (FP) PO PRN ×2 (05:32→18:42)
[2019-04-08] MEDS: PRENATAL VITAMINS W/ FOLIC ACID TABLET (FP) PO SCH (12:11)
[2019-04-08] MEDS: FLUTICASONE PROP 0.05% 16 GM NASAL SPRAY NS SCH (12:11)
--- NOTE | 2019-04-08 13:59 | PN ---
[facility] CIWA - CIWA Score Nausea/Vomitin-Mild Nausea/No Vomiting Muscle Tremors: 1-None Visible, but [place] Anxiety: 2 Agitation: 2 Paroxysmal Sweats: No Perspiration Orientation: 0-Oriented Tacttile Disturbances: 1-Very Mild Itch/Numbness Auditory Disturbances: 0-None Visual Disturbances: 0-None Headache: 1-Very Mild CIWA-Ar Total Score: 8 [facility] Progress Note (SOAP) Subjective: alert,irritable,anxious,interrupted sleep, Objective: 04/08/19 14:23 Vital Signs Temperature 97.9 F 04/08/19 08:49 Pulse Rate 82 04/08/19 08:49 Respiratory Rate 19 04/08/19 08:49 Blood Pressure 140/86 04/08/19 08:49 O2 Sat by Pulse Oximetry (%) Assessment: 04/08/19 14:24 withdrawal symptom Plan: continue detox librium regimen
--- NOTE | 2019-04-08 15:28 | CONSULT ---
[facility] Psychiatric Consult - Data Date of interview: 04/08/19 Admission source: [facility] Identifying data: Patient is a 59 year old single male, mother of two, unemployed, homeless, and is supported by [facility]. This is patient's first admission to detox at [facility]. Patient admitted to for alcohol dependence. Substance Abuse History: Smoking Cessation. Smoking history: Current every day smoker. Have you smoked in the past 12 months: Yes. Aproximately how many cigarettes per day: 5. Hx Chewing Tobacco Use: No. Initiated information on smoking cessation: Yes. 'Breaking Loose' booklet given: 04/05/19. - Substances abused. Alcohol. Frequency: Daily. Amount used: 1 pint Vodka. Age of first use: 12. Date of last use: 04/05/19 Medical History: hypertension, history of gonorrhea Psychiatric History: Patient's first psychiatric contact was approximately 10 years ago while receiving outpatient rehab treatment at [facility]. Diagnosis of depression. He reports seeing her for approximately one year and was prescribed wellbutrin 150mg XL. He then saw his PCP after treatment was discontinued and was prescribed wellbutrin 300mg XL by his PCP. Mr. Bailey states that he recevies wellbutrin when admitted to various detox/rehab facilities. States that he recently completed the rehab program at [facility] and was prescribed wellbutrin 300mg XL. Reports most recently taking wellbutrin before admission to detox. Patient denies history of psychiatric hospitalization. Ms. Bailey reports history of one distant suicide attempt by running in front of a bus. Patient's compliance with wellbutrin is in question. First stated to remote mortgage underwriter that he takes it everyday but then stated that he takes it when he remembers. Patient focused on speaking to counselor as he is interested in placement after detox. Physical/Sexual Abuse/Trauma History: denies. Mental Status Exam - Mental Status Exam Alert and Oriented to: Time, Place, Person Cognitive Function: Good Patient Appearance: Unkempt Mood: Withdrawn Affect: Mood Congruent Patient Behavior: Fatigued Speech Pattern: Slurred Voice Loudness: Moderately Soft/Quiet Thought Process: Goal Oriented Thought Disorder: Not Present Hallucinations: Denies Suicidal Ideation: Denies Homicidal Ideation: Denies Insight/Judgement: Poor Sleep: Poorly Appetite: Fair Muscle strength/Tone: Normal Gait/Station: Normal Psychiatric Findings - Problem List ([place] 1, 2,3) (1) Alcohol dependence Status: Chronic (2) Depressive disorder Status: Chronic Comment: As per records and patient's self-report.No compliant with medications and aftercare. (3) Substance induced mood disorder Status: Acute - Initial Treatment Plan Initial Treatment Plan: Psychoeducation provided. Detoxification in progress. Will not order Wellbutrin as patient's compliance is questionable.
[2019-04-08] MEDS ORDERED: diphenhydrAMINE HCL 25 MG CAPSULE (FP) PO ONE (21:36)
[2019-04-08] MEDS: THIAMINE HCL 100 MG TABLET (FP) PO SCH (22:30)
[2019-04-08] MEDS: diphenhydrAMINE HCL 50 MG CAPSULE PO SCH (22:30)
[2019-04-09] MEDS: chlordiazePOXIDE HCL 10 MG CAPSULE PO SCH ×2 (05:56→17:36)
[2019-04-09] MEDS: PRENATAL VITAMINS W/ FOLIC ACID TABLET (FP) PO SCH (10:35)
[2019-04-09] MEDS: FLUTICASONE PROP 0.05% 16 GM NASAL SPRAY NS SCH (10:36)
[2019-04-09] MEDS: IBUPROFEN 400 MG TABLET (FP) PO PRN ×2 (10:37→22:09)
--- NOTE | 2019-04-09 12:22 | PN ---
[facility] CIWA - CIWA Score Nausea/Vomitin-Mild Nausea/No Vomiting Muscle Tremors: 2 Anxiety: 1-Mildly Anxious Agitation: 0-Normal Activity Paroxysmal Sweats: No Perspiration Orientation: 0-Oriented Tacttile Disturbances: 0-None Auditory Disturbances: 0-None Visual Disturbances: 0-None Headache: 0-None Present CIWA-Ar Total Score: 4 [facility] Progress Note (SOAP) Subjective: pt states he is feeling fine. Anticipate discharge tomorrow. O: Vital Signs - 24 hr 04/08/19 04/08/19 04/09/19 14:04 20:50 03:43 Temperature 98.2 F 100.2 F H Pulse Rate 75 82 Respiratory 18 18 18 Rate Blood Pressure 130/91 139/84 04/09/19 04/09/19 07:17 08:38 Temperature 98.1 F 98.8 F Pulse Rate 70 82 Respiratory 18 18 Rate Blood Pressure 118/71 146/90 Laboratory Tests 04/05/19 04/05/19 04/05/19 13:55 13:55 13:55 WBC 3.3 L RBC 3.50 L Hgb 11.0 L Hct 32.9 L MCV 93.9 MCH 31.3 MCHC 33.4 RDW 13.2 Plt Count 141 MPV 8.0 Sodium 141 Potassium 3.9 Chloride 108 H Carbon Dioxide 25 Anion Gap 8 BUN 7.0 Creatinine 1.3 Est GFR (CKD-EPI)AfAm 68.25 Est GFR (CKD-EPI)NonAf 58.89 Random Glucose 96 Calcium 8.6 Total Bilirubin 0.9 AST 72 H ALT 28 Alkaline Phosphatase 103 Total Protein 8.6 H Albumin 3.6 RPR Titer Nonreactive mild anemia a/p: AUD- continue detox protocol, d/c tomorrow
[2019-04-09] MEDS ORDERED: diphenhydrAMINE HCL 25 MG CAPSULE (FP) PO ONE (20:15)
[2019-04-09] MEDS: THIAMINE HCL 100 MG TABLET (FP) PO SCH (22:09)
[2019-04-09] MEDS: diphenhydrAMINE HCL 50 MG CAPSULE PO SCH (22:09)
[2019-04-10] MEDS ORDERED: chlordiazePOXIDE HCL 10 MG CAPSULE PO ONE (05:00)
--- NOTE | 2019-04-10 10:53 | DS ---
[facility] Detox Discharge Summary Admission Date: 04/05/19 Discharge Date: 04/10/19 - History Present History: Alcohol Dependence Pertinent Past History: Pt admitted for alcohol detox- completed without problems. would like to go to rehab- d/w counselor mild anemia decreased GFR Vital Signs - 24 hr 04/09/19 04/09/19 04/09/19 13:15 16:51 20:32 Temperature 98.2 F 98.1 F 98.2 F Pulse Rate 76 72 74 Respiratory 120 H 18 18 Rate Blood Pressure 146/90 126/78 156/80 04/10/19 04/10/19 04/10/19 00:40 04:18 05:23 Temperature 97.6 F Pulse Rate 65 Respiratory 18 18 18 Rate Blood Pressure 123/71 04/10/19 09:41 Temperature 98.1 F Pulse Rate 73 Respiratory 17 Rate Blood Pressure 122/74 Laboratory Tests 04/05/19 04/05/19 04/05/19 13:55 13:55 13:55 WBC 3.3 L RBC 3.50 L Hgb 11.0 L Hct 32.9 L MCV 93.9 MCH 31.3 MCHC 33.4 RDW 13.2 Plt Count 141 MPV 8.0 Sodium 141 Potassium 3.9 Chloride 108 H Carbon Dioxide 25 Anion Gap 8 BUN 7.0 Creatinine 1.3 Est GFR (CKD-EPI)AfAm 68.25 Est GFR (CKD-EPI)NonAf 58.89 Random Glucose 96 Calcium 8.6 Total Bilirubin 0.9 AST 72 H ALT 28 Alkaline Phosphatase 103 Total Protein 8.6 H Albumin 3.6 RPR Titer Nonreactive - Physical Exam Results Vital Signs: Vital Signs Temperature 98.1 F 04/10/19 09:41 Pulse Rate 73 04/10/19 09:41 Respiratory Rate 17 04/10/19 09:41 Blood Pressure 122/74 04/10/19 09:41 O2 Sat by Pulse Oximetry (%) - Treatment Hospital Course: Detox Protocol Followed, Detoxed Safely, Responded well, Discharged Condition Good, Rehab Referral Accepted - Medication Discharge Medications: Ambulatory Orders Bupropion HCl [Wellbutrin Xl] 300 mg PO DAILY #30 tab.er.24h 09/06/16 Diphenhydramine [Benadryl -] 50 mg PO HS 03/06/17 - AMA Did Patient Leave Against Medical Advice: No
[2019-04-10] MEDS: FLUTICASONE PROP 0.05% 16 GM NASAL SPRAY NS SCH (11:49)
[2019-04-10] MEDS: PRENATAL VITAMINS W/ FOLIC ACID TABLET (FP) PO SCH (11:50)
[2019-04-10 15:58] VITALS: BP 138/83; PULSE 80; TEMP 98.8
== END 2019-04-10 16:03 | disposition other institution (70) | DRG 775 ==
LOC: YASAS 11:25 → Y6N 14:38
PROVIDERS: ADMIT Allergy & Immunology; ATTEND Allergy & Immunology
PROC: HZ2ZZZZ Detoxification Services for Substance Abuse Treatment (ICD-10-PCS; principal; 2019-04-05)
DX: F10.230 Alcohol dependence with withdrawal, uncomplicated (principal); F17.210 Nicotine dependence, cigarettes, uncomplicated; F19.24 Other psychoactive substance dependence with psychoactive substance-induced mood disorder; F32.9 Major depressive disorder, single episode, unspecified; F41.9 Anxiety disorder, unspecified; D64.9 Anemia, unspecified; I10 Essential (primary) hypertension; R76.11 Nonspecific reaction to tuberculin skin test without active tuberculosis; Z86.19 Personal history of other infectious and parasitic diseases; Z59.0 Homelessness
CPT/HCPCS: 36415; 71046-TC-FY; 80053; 85027; 86593

== ENCOUNTER 2019-04-10 17:25 | Inpatient (IN) | payer OTHER ==
--- NOTE | 2019-04-10 17:44 | HP ---
[facility] Rehab Assess/Revision - Admission History Admitted to Rehab from: [address] Date of Admission to Rehab: 04/10/19 - Findings Detox History & Physical reviewed: Yes Concur with findings: Yes (pt admitted from ) Inpatient Rehab Admission - Rehab Decision to Admit Inpatient rehab admission?: Yes - Initial Determination Are CD services needed?: Yes Free of communicable disease: Yes Not in need of hospitalization: Yes - Rehab Admission Criteria Previous failed treatment: Yes Poor recovery environment: Yes Comorbidities: Yes Lacks judgement: Yes Patient is meeting Inpatient Rehab admission criteria:: Yes (completed detox)
[2019-04-10] MEDS ORDERED: IBUPROFEN 400 MG TABLET (FP) PO PRN (17:45)
[2019-04-10] MEDS ORDERED: ACETAMINOPHEN 325 MG TABLET (FP) PO PRN (17:45)
[2019-04-10] MEDS ORDERED: MENTHOL/PHENOL 1 EACH UD MM PRN ×2 (17:45→17:48)
[2019-04-10] MEDS ORDERED: LOPERAMIDE HCL 2 MG CAPSULE PO PRN (17:45)
[2019-04-10] MEDS ORDERED: MAGNESIUM HYDROX 2400MG/30ML ORAL SUSPENSION 30 ML CUP PO PRN (17:45)
[2019-04-10] MEDS ORDERED: MAG HYDROX/AL HYDROX/SIMETH 30 ML UNIT-DOSE CUP PO PRN (17:45)
[2019-04-10] MEDS ORDERED: guaiFENesin 200 MG/10 ML 10 ML UNIT-DOSE CUPS PO PRN (17:45)
[2019-04-10] MEDS ORDERED: P-EPHED 60MG/TRIPROLIDI 2.5MG TABLET PO PRN (17:45)
[2019-04-10] MEDS ORDERED: hydrOXYzine PAMOATE 25 MG CAPSULE (FP) PO PRN (17:45)
[2019-04-10] MEDS ORDERED: MAGNESIUM CITRATE 300 ML BOTTLE PO PRN (17:45)
[2019-04-10 18:18] VITALS: TEMP 98.1
[2019-04-10] MEDS ORDERED: THIAMINE HCL 100 MG TABLET (FP) PO SCH (22:00)
[2019-04-10] MEDS ORDERED: diphenhydrAMINE HCL 50 MG CAPSULE PO SCH (22:00)
[2019-04-10] MEDS ORDERED: MELATONIN 5 MG TABLETS PO PRN (22:00)
[2019-04-11 07:09] VITALS: BP 116/80; PULSE 77
[2019-04-11] MEDS ORDERED: PRENATAL VITAMINS W/ FOLIC ACID TABLET (FP) PO SCH (10:00)
[2019-04-11 11:49] LABS: HEMATOCRIT 31.1 % (35.4-49); HEMOGLOBIN 10.4 GM/dL (11.7-16.9); MCH 31.3 pg (25.7-33.7); MCHC 33.4 g/dl (32.0-35.9); MEAN CELL VOLUME 93.6 fl (80-96); MEAN PLT VOLUME 8.8 fl (7.5-11.1); PLATELET COUNT 133 K/MM3 (134-434); RBC 3.32 M/mm3 (4.00-5.60); RDW 13.1 % (11.9-15.9); WHITE BLOOD COUNT 3.8 K/mm3 (4.0-10.0)
--- NOTE | 2019-04-11 12:12 | PN ---
S Progress Note Note: patient does not want to be in rehab,would like to leave, Vital Signs Temperature 98.1 F 04/11/19 07:07 Pulse Rate 77 04/11/19 07:07 Respiratory Rate 18 04/11/19 07:07 Blood Pressure 116/80 04/11/19 07:07 O2 Sat by Pulse Oximetry (%) ambulation without difficulty with cane seen by counselor nursing wind projects supervisor informed by RN left unit in stable condition
--- NOTE | 2019-04-11 15:52 | DS ---
[facility] Rehab Discharge Summary - [facility] Rehab Discharge Summary Admission Date: 04/10/19 Discharge Date: 04/11/19 - History Present History: Alcohol dependence, Cannabis dependence, Cocaine dependence Additional Comments: patient does not want to continue treatment,jagruti release ama,alert,oriented x 3 lung clear ambulation with out difficulty with cane left unit in stable condition,no suicidal,no homicidal counselor informed by scooter mechanic time spending 35 mins Pertinent Past History: hypertension hepatitis c depression - Discharge Physical Exam Vital Signs: Vital Signs Temperature 98.1 F 04/11/19 07:07 Pulse Rate 77 04/11/19 07:07 Respiratory Rate 18 04/11/19 07:07 Blood Pressure 116/80 04/11/19 07:07 O2 Sat by Pulse Oximetry (%) Pertinent Admission Physical Exam Findings: Vital Signs Temperature 98.1 F 04/11/19 07:07 Pulse Rate 77 04/11/19 07:07 Respiratory Rate 18 04/11/19 07:07 Blood Pressure 116/80 04/11/19 07:07 O2 Sat by Pulse Oximetry (%) Laboratory Last Values WBC 3.8 K/mm3 (4.0-10.0) L 04/11/19 07:25 RBC 3.32 M/mm3 (4.00-5.60) L 04/11/19 07:25 Hgb 10.4 GM/dL (11.7-16.9) L 04/11/19 07:25 Hct 31.1 % (35.4-49) L 04/11/19 07:25 MCV 93.6 fl (80-96) 04/11/19 07:25 MCH 31.3 pg (25.7-33.7) 04/11/19 07:25 MCHC 33.4 g/dl (32.0-35.9) 04/11/19 07:25 RDW 13.1 % (11.9-15.9) 04/11/19 07:25 Plt Count 133 K/MM3 (134-434) L 04/11/19 07:25 MPV 8.8 fl (7.5-11.1) 04/11/19 07:25 - Treatment Discharge Condition: Discharge condition good - Medication Discharge Medications: Ambulatory Orders Bupropion HCl [Wellbutrin Xl] 300 mg PO DAILY #30 tab.er.24h 09/06/16 Diphenhydramine [Benadryl -] 50 mg PO HS 03/06/17 - Discharge Instructions Diet, activity, other medical instructions: Diet: Activity: Other medical instructions: - Diagnosis (1) Alcohol dependence Status: Chronic (2) Depression Status: Acute (3) Cannabis dependence Status: Chronic (4) Cocaine dependence Status: Chronic Qualifiers: (5) HTN (hypertension) Status: Chronic Qualifiers: (6) Hepatitis C Status: Chronic Qualifiers: - AMA Did Patient Leave Against Medical Advice: Yes
== END 2019-04-11 12:30 | disposition left against medical advice (07) | DRG 770 ==
LOC: YASAS 17:25 → Y5N 17:26
PROVIDERS: ADMIT Allergy & Immunology; ATTEND Allergy & Immunology
PROC: HZ42ZZZ Group Counseling for Substance Abuse Treatment, Cognitive-Behavioral (ICD-10-PCS; principal; 2019-04-10)
DX: F10.20 Alcohol dependence, uncomplicated (principal); F14.20 Cocaine dependence, uncomplicated; F12.20 Cannabis dependence, uncomplicated; F32.9 Major depressive disorder, single episode, unspecified; I10 Essential (primary) hypertension; B18.2 Chronic viral hepatitis C; Z59.0 Homelessness
CPT/HCPCS: 36415; 85027

== ENCOUNTER 2019-05-01 13:33 | Inpatient (IN) | payer OTHER ==
--- NOTE | 2019-05-01 16:36 | HP ---
CIWA Score Nausea/Vomitin-Mild Nausea/No Vomiting Muscle Tremors: 1-None Visible, but [place] Anxiety: 2 Agitation: 4-Moderately Restless Paroxysmal Sweats: No Perspiration Orientation: 0-Oriented Tacttile Disturbances: 1-Very Mild Itch/Numbness Auditory Disturbances: 1-Very Mild Visual Disturbances: 1-Very Mild Sensitivity Headache: 2-Mild CIWA-Ar Total Score: 13 - Admission Criteria OASAS Guidelines: Admission for Medically Managed Detox: Requires at least one of the followin. CIWA greater than 12 2. Seizures within the past 24 hours 3. Delirium tremens within the past 24 hours 4. Hallucinations within the past 24 hours 5. Acute intervention needed for co occurring medical disorder 6. Acute intervention needed for co occurring psychiatric disorder 7. Severe withdrawal that cannot be handled at a lower level of care (continued vomiting, continued diarrhea, abnormal vital signs) requiring intravenous medication and/or fluids 8. Patient presents the following: CIWA greater than 12 Admission Criteria Met: Admission criteria met Admitting History and Physical - Past Medical History Cardiovascular: Yes: HTN Infectious Disease: Yes: Other (positive PPD) - Smoking History Smoking history: Current every day smoker Have you smoked in the past 12 months: Yes Aproximately how many cigarettes per day: 5 - Alcohol/Substance Use Hx Alcohol Use: Yes Admission ROS [facility] - HPI Chief Complaint: I am here because they sent me here Allergies/Adverse Reactions: Allergies Allergy/AdvReac Type Severity Reaction Status Date / Time No Known Allergies Allergy Verified 05/01/19 17:03 History of Present Illness: Patient is a 59 year old man who presents for alcohol detox. As per patient, he presented to [facility] last night for leg pain but he was detained because his blood alcohol level was very high, he has no discharge summary. On admission his FELECIA is .145, denies further drinking after he was released from the hospital. He is very agitated Exam Limitations: No Limitations - Ebola screening Have you traveled outside of the country in the last 21 days: No Have you had contact with anyone from an Ebola affected area: No Have you been sick,other than usual withdrawal symptoms: No Do you have a fever: No - Review of Systems Constitutional: Loss of Appetite, Changes in sleep EENT: reports: No Symptoms Reported Respiratory: reports: No Symptoms reported Cardiac: reports: No Symptoms Reported GI: reports: Nausea, Poor Appetite, Poor Fluid Intake, Abdominal cramping : reports: No Symptoms Reported Musculoskeletal: reports: Back Pain, Joint Pain, Muscle Pain Integumentary: reports: Dryness Neuro: reports: Headache, Numbness, Seizure (5 months ago) Endocrine: reports: No Symptoms Reported Hematology: reports: No Symptoms Reported Psychiatric: reports: Anxious, Depressed Other Systems: Reviewed and Negative Patient History - Patient Medical History Hx Anemia: No Hx Asthma: No Hx Chronic Obstructive Pulmonary Disease (COPD): No Hx Cancer: No Hx Cardiac Disorders: No Hx Congestive Heart Failure: No Hx Hypertension: Yes (non compliant with meds.) Hx Hypercholesterolemia: Yes (not on medication) Hx Pacemaker: No HX Cerebrovascular Accident: No Hx Seizures: Yes (last 5 months ago) Hx Dementia: No Hx Diabetes: No Hx Gastrointestinal Disorders: Yes ( GERD) Hx Liver Disease: Yes Hx Genitourinary Disorders: No Hx Sexually Transmitted Disorders: No Hx Renal Disease (ESRD): No Hx Thyroid Disease: No Hx Human Immunodeficiency Virus (HIV): No Hx Hepatitis C: Yes Hx Depression: Yes Hx Suicide Attempt: No Hx Bipolar Disorder: No Hx Schizophrenia: No - Patient Surgical History Past Surgical History: No Anesthesia Reaction: No - PPD History Previous Implant?: No PPD to be Administered?: No - Smoking Cessation Smoking history: Current every day smoker Have you smoked in the past 12 months: Yes Aproximately how many cigarettes per day: 5 Hx Chewing Tobacco Use: No Initiated information on smoking cessation: Yes 'Breaking Loose' booklet given: 05/01/19 - Substances abused Alcohol Substance route: Oral Frequency: Daily Amount used: 1/2 PINT DAILY Age of first use: 12 Date of last use: 04/30/19 Admission Physical Exam [facility] - Physical General Appearance: Yes: Irritable, Anxious HEENTM: Yes: Normocephalic, Normal Voice, Pharynx Normal Respiratory: Yes: Chest Non-Tender, Lungs Clear, Normal Breath Sounds, No Respiratory Distress, No Accessory Muscle Use Neck: Yes: No masses,lesions,Nodules, Supple Breast: Yes: Breast Exam Deferred Cardiology: Yes: Regular Rhythm, Regular Rate, S1, S2 Abdominal: Yes: Normal Bowel Sounds, Non Tender Genitourinary: Yes: Within Normal Limits Back: Yes: Normal Inspection Musculoskeletal: Yes: Back pain, Joint Stiffness, Other (unsteady gait due to chronic knee/leg pain) Extremities: Yes: Other (left 5th finger wound r/t trauma) Neurological: Yes: Fully Oriented, Alert, Normal Response, Other (irritable) Integumentary: Yes: Dry, Other (1 cm x 1 cm x 0.2 cm wound to the left 5th finger) Lymphatic: Yes: Within Normal Limits - Diagnostic (1) Nicotine dependence Current Visit: No Status: Acute Qualifiers: Nicotine product type: cigarettes Substance use status: uncomplicated Qualified Code(s): F17.210 - Nicotine dependence, cigarettes, uncomplicated (2) Alcohol dependence with uncomplicated intoxication Current Visit: Yes Status: Chronic (3) GERD (gastroesophageal reflux disease) Current Visit: Yes Status: Chronic Qualifiers: Esophagitis presence: without esophagitis Qualified Code(s): K21.9 - Gastro-esophageal reflux disease without esophagitis (4) HTN (hypertension) Current Visit: Yes Status: Chronic Qualifiers: Hypertension type: essential hypertension Qualified Code(s): I10 - Essential (primary) hypertension (5) Hepatitis C Current Visit: Yes Status: Chronic Qualifiers: Viral hepatitis chronicity: chronic Hepatic coma status: without hepatic coma Qualified Code(s): B18.2 - Chronic viral hepatitis C (6) Hypercholesteremia Current Visit: Yes Status: Chronic Cleared for Admission [facility] - Detox or Rehab S Level of Care: Medically Managed Detox Regimen/Protocol: Librium Claeared for Rehab Admission: No Breathalyzer - Breathalyzer Breathalyzer: 0.145 Urine Drug Screen - Test Device Lot number: [id number] Expiration date: 01/23/21 - Control Is test valid?: Yes - Results Drug screen NEGATIVE: No Urine drug screen results: BZO-Benzodiazepines Inpatient Rehab Admission - Rehab Decision to Admit Inpatient rehab admission?: No
[2019-05-01] MEDS ORDERED: METHOCARBAMOL 500 MG TABLET PO PRN (16:51)
[2019-05-01] MEDS ORDERED: BISMUTH SUBSALICYLATE 524 MG/30 ML UD PO PRN (16:51)
[2019-05-01] MEDS ORDERED: MAGNESIUM CITRATE 300 ML BOTTLE PO PRN (16:51)
[2019-05-01] MEDS ORDERED: MAGNESIUM HYDROX 2400MG/30ML ORAL SUSPENSION 30 ML CUP PO PRN (16:51)
[2019-05-01] MEDS ORDERED: ONDANSETRON *ODT* 4 MG TABLET SL ONE (16:51)
[2019-05-01] MEDS ORDERED: ACETAMINOPHEN 325 MG TABLET (FP) PO PRN ×2 (16:51)
[2019-05-01] MEDS ORDERED: NICOTINE POLACRILEX 2 MG GUM BUC PRN (16:51)
[2019-05-01] MEDS ORDERED: MENTHOL/PHENOL 1 EACH UD MM PRN (16:51)
[2019-05-01] MEDS ORDERED: MAG HYDROX/AL HYDROX/SIMETH 30 ML UNIT-DOSE CUP PO PRN (16:51)
[2019-05-01] MEDS ORDERED: chlordiazePOXIDE HCL 10 MG CAPSULE PO PRN (16:51)
[2019-05-01 17:06] VITALS: BMI 23.5
[2019-05-01] MEDS: hydrOXYzine PAMOATE 25 MG CAPSULE (FP) PO SCH ×2 (18:56→23:18)
[2019-05-01] MEDS: MELATONIN 5 MG TABLETS PO SCH (23:18)
[2019-05-01] MEDS: THIAMINE HCL 100 MG TABLET (FP) PO SCH (23:18)
[2019-05-01] MEDS: chlordiazePOXIDE HCL 25 MG CAPSULE PO SCH (23:18)
[2019-05-02] MEDS: FLUTICASONE PROP 0.05% 16 GM NASAL SPRAY NS SCH ×3 (00:55→22:40)
[2019-05-02] MEDS: chlordiazePOXIDE HCL 25 MG CAPSULE PO SCH ×3 (06:24→22:40)
[2019-05-02] MEDS: hydrOXYzine PAMOATE 25 MG CAPSULE (FP) PO SCH ×5 (06:24→22:41)
[2019-05-02] MEDS ORDERED: BACITRACIN 15 GM TUBE TOPICAL OINTMENT TP SCH (10:00)
--- NOTE | 2019-05-02 10:02 | PN ---
S CIWA - CIWA Score Nausea/Vomitin-Mild Nausea/No Vomiting Muscle Tremors: 3 Anxiety: 1-Mildly Anxious Agitation: 0-Normal Activity Paroxysmal Sweats: 2 Orientation: 0-Oriented Tacttile Disturbances: 0-None Auditory Disturbances: 0-None Visual Disturbances: 2-Mild Sensitivity Headache: 2-Mild CIWA-Ar Total Score: 11 S Progress Note (SOAP) Subjective: 59 years old male admitted on 05/01/19 for alcohol withdrawal sx management treating with librium detox regiment ate breakfast resting in bed with eyes closed easy to aroused limited conversation with staff Objective: 05/02/19 10:03 Vital Signs Temperature 98.0 F 05/02/19 09:11 Pulse Rate 101 H 05/02/19 09:11 Respiratory Rate 20 05/02/19 09:11 Blood Pressure 129/84 05/02/19 09:11 O2 Sat by Pulse Oximetry (%) 05/02/19 10:04 lab pending Assessment: 05/02/19 10:04 alcohol withdrawal Plan: librium regiment
--- NOTE | 2019-05-02 11:19 | CONSULT ---
[facility] Psychiatric Consult - Data Date of interview: 05/02/19 Admission source: [facility] Identifying data: Mr Bailey is a 59 years old single Black male, father of 2 children, unemployed receving SSI, homeless seeking detox treatment for alcohol Substance Abuse History: Reports history of alcohol use. Refer to addiction counselor's summary for further information Medical History: Significant for hypertension, dyslipidemia, GERD, hepatitis C and history of treatment for gonorrhea Psychiatric History: Patient is known for multiple previous admissions to this facility. Historical narrative remains consistent. He reports that his first psychiatric contact was approximately 10 years ago while receiving outpatient rehab treatment at [facility]. He said that he was diagnosis with depression and started on Wellbutrin XL 150 mg/day. Reports that since he left the program till present, he continues to take medication on & off prescribed by his primary care physician or whenever admitted to inpatient substance abuse programs. Denies previous psychiatric hospitalization. Reportedly he has had one distant suicide attempt by running in front of a bus. At present, denies exper iencing depressive symptoms, S/H ideations. However, reports feeling aggravated, irritable and sleeping poorly. Requests to continue Wellbutrin and to be ordered Benadryl 50 mg/hs Physical/Sexual Abuse/Trauma History: Denies Mental Status Exam - Mental Status Exam Alert and Oriented to: Time, Place, Person Cognitive Function: Fair Patient Appearance: Disheveled Mood: Angry, Irritable Affect: Appropriate Patient Behavior: Cooperative Speech Pattern: Clear Voice Loudness: Normal Thought Process: Intact, Goal Oriented Hallucinations: Denies Suicidal Ideation: Denies Insight/Judgement: Poor Sleep: Poorly Appetite: Good Muscle strength/Tone: Normal Gait/Station: Normal Psychiatric Findings - Problem List ([place] 1, 2,3) (1) Depressive disorder Current Visit: No Status: Chronic Comment: As per records and patient's self-report.No compliant with medications and aftercare. (2) MDD (major depressive disorder) Current Visit: Yes Status: Ruled-out (3) Substance induced mood disorder Current Visit: Yes Status: Acute (4) Substance-induced sleep disorder Current Visit: Yes Status: Acute (5) Alcohol dependence with uncomplicated intoxication Current Visit: Yes Status: Acute (6) Nicotine dependence Current Visit: No Status: Chronic Qualifiers: Nicotine product type: cigarettes Substance use status: uncomplicated Qualified Code(s): F17.210 - Nicotine dependence, cigarettes, uncomplicated (7) GERD (gastroesophageal reflux disease) Current Visit: Yes Status: Chronic Qualifiers: Esophagitis presence: without esophagitis Qualified Code(s): K21.9 - Gastro-esophageal reflux disease without esophagitis (8) HTN (hypertension) Current Visit: Yes Status: Chronic Qualifiers: Hypertension type: essential hypertension Qualified Code(s): I10 - Essential (primary) hypertension (9) Hepatitis C Current Visit: Yes Status: Chronic Qualifiers: Viral hepatitis chronicity: chronic Hepatic coma status: without hepatic coma Qualified Code(s): B18.2 - Chronic viral hepatitis C (10) Hypercholesteremia Current Visit: Yes Status: Chronic (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 2) Start Benadryl 50 mg po HS prn for insomnia. 3) Continue inpatient detoxification
[2019-05-02] MEDS ORDERED: diphenhydrAMINE HCL 25 MG CAPSULE (FP) PO PRN (11:27)
[2019-05-02 11:35] LABS: HEMATOCRIT 33.5 % (35.4-49); HEMOGLOBIN 11.3 GM/dL (11.7-16.9); MCH 30.7 pg (25.7-33.7); MCHC 33.8 g/dl (32.0-35.9); MEAN CELL VOLUME 90.8 fl (80-96); PLATELET COUNT 133 K/MM3 (134-434); RBC 3.68 M/mm3 (4.00-5.60); RDW 12.8 % (11.9-15.9); WHITE BLOOD COUNT 3.5 K/mm3 (4.0-10.0)
[2019-05-02] MEDS: PRENATAL VITAMINS W/ FOLIC ACID TABLET (FP) PO SCH (11:38)
[2019-05-02 11:57] LABS: ALBUMIN 3.7 g/dl (3.4-5.0); BILIRUBIN,TOTAL 2.1 mg/dL (0.2-1); BLOOD UREA NITROGEN 10.3 mg/dL (7-18); CALCIUM 8.6 mg/dL (8.5-10.1); POTASSIUM 3.6 mmol/L (3.5-5.1); TOT PROT 8.5 g/dl (6.4-8.2)
[2019-05-02] MEDS: BACITRACIN 0.9 GM PACKET TP SCH (13:43)
[2019-05-02] MEDS: MELATONIN 5 MG TABLETS PO SCH (22:41)
[2019-05-02] MEDS: THIAMINE HCL 100 MG TABLET (FP) PO SCH (22:41)
[2019-05-03] MEDS: chlordiazePOXIDE 5 MG CAPSULE PO SCH ×3 (06:37→22:42)
[2019-05-03] MEDS: hydrOXYzine PAMOATE 25 MG CAPSULE (FP) PO SCH ×5 (06:37→22:42)
[2019-05-03] MEDS: FLUTICASONE PROP 0.05% 16 GM NASAL SPRAY NS SCH ×2 (10:27→22:42)
[2019-05-03] MEDS: PRENATAL VITAMINS W/ FOLIC ACID TABLET (FP) PO SCH (10:27)
[2019-05-03] MEDS: BACITRACIN 0.9 GM PACKET TP SCH (10:27)
--- NOTE | 2019-05-03 13:20 | PN ---
S CIWA - CIWA Score Nausea/Vomitin-No Nausea/No Vomiting Muscle Tremors: 2 Anxiety: 2 Agitation: 0-Normal Activity Paroxysmal Sweats: 2 Orientation: 0-Oriented Tacttile Disturbances: 0-None Auditory Disturbances: 0-None Visual Disturbances: 2-Mild Sensitivity Headache: 0-None Present CIWA-Ar Total Score: 8 [facility] Progress Note (SOAP) Subjective: 59 years old male admitted on 05/01/19 for alcohol withdrawal sx management tr eating with librium detox regiment ambulating with cane steady gait alert no acute distress attending groups sporadically hesitating about aftercare encourage the patient consider new focus Objective: 05/03/19 13:21 Vital Signs Temperature 98.8 F 05/03/19 09:04 Pulse Rate 97 H 05/03/19 09:04 Respiratory Rate 18 05/03/19 09:04 Blood Pressure 125/74 05/03/19 09:04 O2 Sat by Pulse Oximetry (%) Laboratory Last Values WBC 3.5 K/mm3 (4.0-10.0) L 05/02/19 07:50 RBC 3.68 M/mm3 (4.00-5.60) L 05/02/19 07:50 Hgb 11.3 GM/dL (11.7-16.9) L 05/02/19 07:50 Hct 33.5 % (35.4-49) L 05/02/19 07:50 MCV 90.8 fl (80-96) 05/02/19 07:50 MCH 30.7 pg (25.7-33.7) 05/02/19 07:50 MCHC 33.8 g/dl (32.0-35.9) 05/02/19 07:50 RDW 12.8 % (11.9-15.9) 05/02/19 07:50 Plt Count 133 K/MM3 (134-434) L 05/02/19 07:50 MPV 8.0 fl (7.5-11.1) 05/02/19 07:50 Sodium 137 mmol/L (136-145) 05/02/19 07:50 Potassium 3.6 mmol/L (3.5-5.1) 05/02/19 07:50 Chloride 100 mmol/L (98-107) 05/02/19 07:50 Carbon Dioxide 28 mmol/L (21-32) 05/02/19 07:50 Anion Gap 9 MMOL/L (8-16) 05/02/19 07:50 BUN 10.3 mg/dL (7-18) 05/02/19 07:50 Creatinine 1.0 mg/dL (0.55-1.3) 05/02/19 07:50 Est GFR (CKD-EPI)AfAm 93.73 05/02/19 07:50 Est GFR (CKD-EPI)NonAf 80.87 05/02/19 07:50 Random Glucose 81 mg/dL (74-106) 05/02/19 07:50 Calcium 8.6 mg/dL (8.5-10.1) 05/02/19 07:50 Total Bilirubin 2.1 mg/dL (0.2-1) H 05/02/19 07:50 AST 61 U/L (15-37) H 05/02/19 07:50 ALT 20 U/L (13-61) 05/02/19 07:50 Alkaline Phosphatase 108 U/L (45-117) 05/02/19 07:50 Total Protein 8.5 g/dl (6.4-8.2) H 05/02/19 07:50 Albumin 3.7 g/dl (3.4-5.0) 05/02/19 07:50 RPR Titer Nonreactive (NONREACTIVE) 05/02/19 07:50 lab noted Assessment: 05/03/19 13:22 alcohol withdrawal Plan: librium regiment
[2019-05-03] MEDS: IBUPROFEN 400 MG TABLET (FP) PO PRN (17:55)
[2019-05-03] MEDS: MELATONIN 5 MG TABLETS PO SCH (22:42)
[2019-05-03] MEDS: THIAMINE HCL 100 MG TABLET (FP) PO SCH (22:42)
[2019-05-04] MEDS ORDERED: chlordiazePOXIDE HCL 10 MG CAPSULE PO PRN
[2019-05-04] MEDS: chlordiazePOXIDE HCL 10 MG CAPSULE PO SCH ×3 (06:20→22:53)
[2019-05-04] MEDS: hydrOXYzine PAMOATE 25 MG CAPSULE (FP) PO SCH ×5 (06:20→22:53)
[2019-05-04] MEDS: BACITRACIN 0.9 GM PACKET TP SCH (10:45)
[2019-05-04] MEDS: PRENATAL VITAMINS W/ FOLIC ACID TABLET (FP) PO SCH (10:46)
[2019-05-04] MEDS: FLUTICASONE PROP 0.05% 16 GM NASAL SPRAY NS SCH ×2 (10:47→22:53)
[2019-05-04] MEDS: IBUPROFEN 400 MG TABLET (FP) PO PRN ×2 (11:49→18:02)
--- NOTE | 2019-05-04 14:11 | PN ---
[facility] CIWA - CIWA Score Nausea/Vomitin-No Nausea/No Vomiting Muscle Tremors: 2 Anxiety: 2 Agitation: 0-Normal Activity Paroxysmal Sweats: 1-Minimal Palms Moist Orientation: 0-Oriented Tacttile Disturbances: 0-None Auditory Disturbances: 0-None Visual Disturbances: 0-None Headache: 0-None Present CIWA-Ar Total Score: 5 S Progress Note (SOAP) Subjective: 59 years old male admitted on 05/01/19 for alcohol withdrawal sx management treating with librium detox regiment feeling better today ambulating with cane 5th left finger dressing clean and intact denies pain at this time Objective: 05/04/19 14:10 Vital Signs Temperature 98.4 F 05/04/19 12:50 Pulse Rate 87 05/04/19 12:50 Respiratory Rate 18 05/04/19 12:50 Blood Pressure 107/69 05/04/19 12:50 O2 Sat by Pulse Oximetry (%) Laboratory Last Values WBC 3.5 K/mm3 (4.0-10.0) L 05/02/19 07:50 RBC 3.68 M/mm3 (4.00-5.60) L 05/02/19 07:50 Hgb 11.3 GM/dL (11.7-16.9) L 05/02/19 07:50 Hct 33.5 % (35.4-49) L 05/02/19 07:50 MCV 90.8 fl (80-96) 05/02/19 07:50 MCH 30.7 pg (25.7-33.7) 05/02/19 07:50 MCHC 33.8 g/dl (32.0-35.9) 05/02/19 07:50 RDW 12.8 % (11.9-15.9) 05/02/19 07:50 Plt Count 133 K/MM3 (134-434) L 05/02/19 07:50 MPV 8.0 fl (7.5-11.1) 05/02/19 07:50 Sodium 137 mmol/L (136-145) 05/02/19 07:50 Potassium 3.6 mmol/L (3.5-5.1) 05/02/19 07:50 Chloride 100 mmol/L (98-107) 05/02/19 07:50 Carbon Dioxide 28 mmol/L (21-32) 05/02/19 07:50 Anion Gap 9 MMOL/L (8-16) 05/02/19 07:50 BUN 10.3 mg/dL (7-18) 05/02/19 07:50 Creatinine 1.0 mg/dL (0.55-1.3) 05/02/19 07:50 Est GFR (CKD-EPI)AfAm 93.73 05/02/19 07:50 Est GFR (CKD-EPI)NonAf 80.87 05/02/19 07:50 Random Glucose 81 mg/dL (74-106) 05/02/19 07:50 Calcium 8.6 mg/dL (8.5-10.1) 05/02/19 07:50 Total Bilirubin 2.1 mg/dL (0.2-1) H 05/02/19 07:50 AST 61 U/L (15-37) H 05/02/19 07:50 ALT 20 U/L (13-61) 05/02/19 07:50 Alkaline Phosphatase 108 U/L (45-117) 05/02/19 07:50 Total Protein 8.5 g/dl (6.4-8.2) H 05/02/19 07:50 Albumin 3.7 g/dl (3.4-5.0) 05/02/19 07:50 RPR Titer Nonreactive (NONREACTIVE) 05/02/19 07:50 lab noted Assessment: 05/04/19 14:11 alcohol withdrawal Plan: librium regiment
[2019-05-04] MEDS: THIAMINE HCL 100 MG TABLET (FP) PO SCH (22:53)
[2019-05-04] MEDS: MELATONIN 5 MG TABLETS PO SCH (22:54)
[2019-05-05] MEDS ORDERED: chlordiazePOXIDE HCL 10 MG CAPSULE PO ONE (05:00)
[2019-05-05] MEDS: hydrOXYzine PAMOATE 25 MG CAPSULE (FP) PO SCH (06:13)
[2019-05-05 09:12] VITALS: BP 117/78; PULSE 91; TEMP 98.4
--- NOTE | 2019-05-05 10:06 | DS ---
[facility] Detox Discharge Summary Admission Date: 05/01/19 Discharge Date: 05/05/19 - History Present History: Alcohol Dependence Additional Comments: 59 years old male admitted on 05/01/19 for alcohol withdrawal sx management treated with librium detox regiment Mr Bailey has completed librium regiment and is tolerated well seen by psychiatrist resume wellbutrin and benadryl alert oriented x 3 ambulating with cane steady gaits respiratory clear lung sounds bilaterally on auscultation abdomen soft no rebound tenderness skin warm and dry Pertinent Past History: time for discharge 33 minutes left 5th distal finger dressing intact clean denies pain palm warm and pink patient will follow up with [facility] - Physical Exam Results Vital Signs: Vital Signs Temperature 98.4 F 05/05/19 08:34 Pulse Rate 91 H 05/05/19 08:34 Respiratory Rate 20 05/05/19 08:34 Blood Pressure 117/78 05/05/19 08:34 O2 Sat by Pulse Oximetry (%) Pertinent Admission Physical Exam Findings: alcohol withdrawal Laboratory Last Values WBC 3.5 K/mm3 (4.0-10.0) L 05/02/19 07:50 RBC 3.68 M/mm3 (4.00-5.60) L 05/02/19 07:50 Hgb 11.3 GM/dL (11.7-16.9) L 05/02/19 07:50 Hct 33.5 % (35.4-49) L 05/02/19 07:50 MCV 90.8 fl (80-96) 05/02/19 07:50 MCH 30.7 pg (25.7-33.7) 05/02/19 07:50 MCHC 33.8 g/dl (32.0-35.9) 05/02/19 07:50 RDW 12.8 % (11.9-15.9) 05/02/19 07:50 Plt Count 133 K/MM3 (134-434) L 05/02/19 07:50 MPV 8.0 fl (7.5-11.1) 05/02/19 07:50 Sodium 137 mmol/L (136-145) 05/02/19 07:50 Potassium 3.6 mmol/L (3.5-5.1) 05/02/19 07:50 Chloride 100 mmol/L (98-107) 05/02/19 07:50 Carbon Dioxide 28 mmol/L (21-32) 05/02/19 07:50 Anion Gap 9 MMOL/L (8-16) 05/02/19 07:50 BUN 10.3 mg/dL (7-18) 05/02/19 07:50 Creatinine 1.0 mg/dL (0.55-1.3) 05/02/19 07:50 Est GFR (CKD-EPI)AfAm 93.73 05/02/19 07:50 Est GFR (CKD-EPI)NonAf 80.87 05/02/19 07:50 Random Glucose 81 mg/dL (74-106) 05/02/19 07:50 Calcium 8.6 mg/dL (8.5-10.1) 05/02/19 07:50 Total Bilirubin 2.1 mg/dL (0.2-1) H 05/02/19 07:50 AST 61 U/L (15-37) H 05/02/19 07:50 ALT 20 U/L (13-61) 05/02/19 07:50 Alkaline Phosphatase 108 U/L (45-117) 05/02/19 07:50 Total Protein 8.5 g/dl (6.4-8.2) H 05/02/19 07:50 Albumin 3.7 g/dl (3.4-5.0) 05/02/19 07:50 RPR Titer Nonreactive (NONREACTIVE) 05/02/19 07:50 T.pallidum Ab Interpret Cancelled 05/02/19 07:50 Vital Signs Temperature 98.4 F 05/05/19 08:34 Pulse Rate 91 H 05/05/19 08:34 Respiratory Rate 20 05/05/19 08:34 Blood Pressure 117/78 05/05/19 08:34 O2 Sat by Pulse Oximetry (%) lab noted - Treatment Hospital Course: Detox Protocol Followed, Detoxed Safely, Responded well, Discharged Condition Good, Rehab Referral Accepted Patient has Accepted a Re[facility] Referral to: [facility] - Medication Discharge Medications: Ambulatory Orders Bupropion HCl [Wellbutrin Xl] 300 mg PO DAILY #30 tab.er.24h 09/06/16 Diphenhydramine [Benadryl Capsule -] 50 mg PO HS 03/06/17 Fluticasone Prop 0.05% Nasal [Flonase -] 1 - 2 spray NS BID 05/01/19 - Diagnosis (1) Alcohol dependence with uncomplicated intoxication Status: Acute (2) Substance induced mood disorder Status: Suspected (3) GERD (gastroesophageal reflux disease) Status: Chronic Qualifiers: Esophagitis presence: without esophagitis Qualified Code(s): K21.9 - Gastro-esophageal reflux disease without esophagitis (4) HTN (hypertension) Status: Chronic Qualifiers: Hypertension type: essential hypertension Qualified Code(s): I10 - Essential (primary) hypertension (5) Hepatitis C Status: Chronic Qualifiers: Viral hepatitis chronicity: chronic Hepatic coma status: without hepatic coma Qualified Code(s): B18.2 - Chronic viral hepatitis C (6) Hypercholesteremia Status: Chronic (7) Nicotine dependence Status: Acute Qualifiers: Nicotine product type: cigarettes Substance use status: in withdrawal Qualified Code(s): F17.213 - Nicotine dependence, cigarettes, with withdrawal (8) Positive PPD Status: Resolved - AMA Did Patient Leave Against Medical Advice: No CIWA Score - CIWA Score Nausea/Vomitin-No Nausea/No Vomiting Muscle Tremors: 1-None Visible, but [place] Anxiety: 1-Mildly Anxious Agitation: 0-Normal Activity Paroxysmal Sweats: No Perspiration Orientation: 0-Oriented Tacttile Disturbances: 0-None Auditory Disturbances: 0-None Visual Disturbances: 0-None Headache: 0-None Present CIWA-Ar Total Score: 2
== END 2019-05-05 09:56 | disposition home or self-care (01) | DRG 775 ==
LOC: YASAS 13:33 → Y3N 17:13
PROVIDERS: ADMIT Allergy & Immunology; ATTEND Allergy & Immunology
PROC: HZ2ZZZZ Detoxification Services for Substance Abuse Treatment (ICD-10-PCS; principal; 2019-05-01)
DX: F10.230 Alcohol dependence with withdrawal, uncomplicated (principal); F17.213 Nicotine dependence, cigarettes, with withdrawal; F19.24 Other psychoactive substance dependence with psychoactive substance-induced mood disorder; F19.282 Other psychoactive substance dependence with psychoactive substance-induced sleep disorder; F32.9 Major depressive disorder, single episode, unspecified; I10 Essential (primary) hypertension; K21.9 Gastro-esophageal reflux disease without esophagitis; B18.2 Chronic viral hepatitis C; E78.5 Hyperlipidemia, unspecified; R76.11 Nonspecific reaction to tuberculin skin test without active tuberculosis; Z91.14 Patient's other noncompliance with medication regimen; Z87.438 Personal history of other diseases of male genital organs; Z86.69 Personal history of other diseases of the nervous system and sense organs
CPT/HCPCS: 36415; 80053; 85027; 86593; Q0162

== ENCOUNTER 2020-09-19 12:11 | Inpatient (IN) | payer OTHER ==
[2020-09-19] MEDS ORDERED: P-EPHED 60MG/TRIPROLIDI 2.5MG TABLET PO PRN (17:11)
[2020-09-19] MEDS ORDERED: MAG HYDROX/AL HYDROX/SIMETH 30 ML UNIT-DOSE CUP PO PRN (17:11)
[2020-09-19] MEDS ORDERED: LOPERAMIDE HCL 2 MG CAPSULE PO PRN (17:11)
[2020-09-19] MEDS ORDERED: MAGNESIUM HYDROX 2400MG/30ML ORAL SUSPENSION 30 ML CUP PO PRN (17:11)
[2020-09-19] MEDS ORDERED: MAGNESIUM CITRATE 300 ML BOTTLE PO PRN (17:11)
[2020-09-19] MEDS ORDERED: guaiFENesin 200 MG/10 ML 10 ML UNIT-DOSE CUPS PO PRN (17:11)
[2020-09-19] MEDS ORDERED: NICOTINE POLACRILEX 2 MG GUM BC PRN (17:11)
[2020-09-19 17:59] VITALS: BMI 23.9
[2020-09-19] MEDS: hydrOXYzine PAMOATE 25 MG CAPSULE (FP) PO SCH ×2 (18:29→21:12)
[2020-09-19] MEDS: MELATONIN 5 MG TABLETS PO SCH (21:11)
[2020-09-19] MEDS: THIAMINE HCL 100 MG TABLET (FP) PO SCH (21:11)
[2020-09-19] MEDS: FLUTICASONE PROP 0.05% 16 GM NASAL SPRAY NS PRN (21:12)
[2020-09-19] MEDS: ACETAMINOPHEN 325 MG TABLET (FP) PO PRN (21:13)
[2020-09-20] MEDS: hydrOXYzine PAMOATE 25 MG CAPSULE (FP) PO SCH ×5 (06:32→21:10)
[2020-09-20] MEDS: PRENATAL VITAMINS W/ FOLIC ACID TABLET (FP) PO SCH (09:17)
[2020-09-20] MEDS: FLUTICASONE PROP 0.05% 16 GM NASAL SPRAY NS PRN ×2 (09:18→21:18)
[2020-09-20] MEDS: BISACODYL 5 MG TABLET.DR (FP) PO PRN (09:20)
[2020-09-20 10:09] LABS: BASO % 0.9 % (0-2.0); EOS % 5.8 % (0-4.5); HEMATOCRIT 35.2 % (35.4-49); HEMOGLOBIN 11.8 GM/dL (11.7-16.9); LYMPH % 31.7 % (8-40); MCH 30.4 pg (25.7-33.7); MCHC 33.6 g/dl (32.0-35.9); MEAN CELL VOLUME 90.3 fl (80-96); MEAN PLT VOLUME 8.4 fl (7.5-11.1); MONO % 7.6 % (3.8-10.2); PLATELET COUNT 109 10^3/uL (134-434); RDW 13.2 % (11.9-15.9)
[2020-09-20 10:18] LABS: ALBUMIN 3.9 g/dl (3.4-5.0); BLOOD UREA NITROGEN 11.5 mg/dL (7-18)
[2020-09-20 10:24] LABS: CALCIUM 8.9 mg/dL (8.5-10.1)
[2020-09-20 10:25] LABS: BILIRUBIN,TOTAL 1.2 mg/dL (0.2-1); TOT PROT 8.2 g/dl (6.4-8.2)
[2020-09-20] MEDS: NICOTINE 7 MG/24 HOURS TOPICAL PATCH TD SCH (11:07)
[2020-09-20 13:23] LABS: EPI CELLS 5 /uL (0-25.1); HYALINE CASTS 0 /uL (0-3.1); PH,URINE 8.5 (5.0-8.0); URINE APPEARANCE CLEAR; URINE BACTERIA 133 /uL (0-1359); URINE BILIRUBIN NEGATIVE (NEGATIVE); URINE COLOR YELLOW; URINE GLUCOSE (UA) NEGATIVE (NEGATIVE); URINE KETONE NEGATIVE (NEGATIVE); URINE LEUK ESTERASE NEGATIVE (NEGATIVE); URINE NITRITE NEGATIVE (NEGATIVE); URINE PROTEIN 1+ (NEGATIVE); URINE RBC 9 /uL (0-23.9); URINE WBC 4 /uL (0-25.8)
[2020-09-20] MEDS: THIAMINE HCL 100 MG TABLET (FP) PO SCH (21:10)
[2020-09-20] MEDS: MELATONIN 5 MG TABLETS PO SCH (21:10)
[2020-09-20] MEDS: FAMOTIDINE 20 MG TABLET PO SCH (21:11)
[2020-09-20] MEDS: ACETAMINOPHEN 325 MG TABLET (FP) PO PRN (21:11)
[2020-09-20] MEDS: MIRTAZAPINE 15 MG TABLET (FP) PO SCH (21:11)
[2020-09-21] MEDS: hydrOXYzine PAMOATE 25 MG CAPSULE (FP) PO SCH ×4 (06:35→18:05)
[2020-09-21] MEDS: NICOTINE 7 MG/24 HOURS TOPICAL PATCH TD SCH (09:16)
[2020-09-21] MEDS: PRENATAL VITAMINS W/ FOLIC ACID TABLET (FP) PO SCH (09:16)
[2020-09-21] MEDS: FAMOTIDINE 20 MG TABLET PO SCH (09:17)
[2020-09-22] MEDS: MELATONIN 5 MG TABLETS PO SCH ×2 (00:31→21:14)
[2020-09-22] MEDS: FAMOTIDINE 20 MG TABLET PO SCH ×3 (00:31→21:14)
[2020-09-22] MEDS: hydrOXYzine PAMOATE 25 MG CAPSULE (FP) PO SCH ×6 (00:32→21:14)
[2020-09-22] MEDS: MIRTAZAPINE 15 MG TABLET (FP) PO SCH ×2 (00:32→21:14)
[2020-09-22] MEDS: THIAMINE HCL 100 MG TABLET (FP) PO SCH ×2 (00:33→21:14)
[2020-09-22] MEDS: ACETAMINOPHEN 325 MG TABLET (FP) PO PRN ×3 (03:21→21:18)
[2020-09-22] MEDS: NICOTINE 7 MG/24 HOURS TOPICAL PATCH TD SCH (09:52)
[2020-09-22] MEDS: PRENATAL VITAMINS W/ FOLIC ACID TABLET (FP) PO SCH (09:53)
[2020-09-22] MEDS: HYDROCHLOROTHIAZIDE 25 MG TABLET (FP) PO SCH (10:04)
[2020-09-22] MEDS: FLUTICASONE PROP 0.05% 16 GM NASAL SPRAY NS PRN (22:13)
[2020-09-23] MEDS: hydrOXYzine PAMOATE 25 MG CAPSULE (FP) PO SCH ×5 (06:27→21:36)
[2020-09-23] MEDS: IBUPROFEN 400 MG TABLET (FP) PO PRN (09:46)
[2020-09-23] MEDS: FAMOTIDINE 20 MG TABLET PO SCH ×2 (09:46→21:35)
[2020-09-23] MEDS: NICOTINE 7 MG/24 HOURS TOPICAL PATCH TD SCH (09:46)
[2020-09-23] MEDS: HYDROCHLOROTHIAZIDE 25 MG TABLET (FP) PO SCH (09:46)
[2020-09-23] MEDS: PRENATAL VITAMINS W/ FOLIC ACID TABLET (FP) PO SCH (09:47)
[2020-09-23] MEDS: FLUTICASONE PROP 0.05% 16 GM NASAL SPRAY NS PRN ×2 (10:23→21:51)
[2020-09-23] MEDS ORDERED: PT OWN MED DRAWER 7, Y5N ONE ×3 (10:23→21:52)
[2020-09-23] MEDS: BISACODYL 5 MG TABLET.DR (FP) PO PRN (12:57)
[2020-09-23] MEDS: ACETAMINOPHEN 325 MG TABLET (FP) PO PRN ×2 (15:38→21:36)
[2020-09-23] MEDS: THIAMINE HCL 100 MG TABLET (FP) PO SCH (21:35)
[2020-09-23] MEDS: MIRTAZAPINE 15 MG TABLET (FP) PO SCH (21:36)
[2020-09-23] MEDS: MELATONIN 5 MG TABLETS PO SCH (21:36)
[2020-09-24] MEDS: IBUPROFEN 400 MG TABLET (FP) PO PRN ×2 (06:25→21:43)
[2020-09-24] MEDS: hydrOXYzine PAMOATE 25 MG CAPSULE (FP) PO SCH ×5 (06:25→21:41)
[2020-09-24] MEDS: NICOTINE 7 MG/24 HOURS TOPICAL PATCH TD SCH (10:04)
[2020-09-24] MEDS: FAMOTIDINE 20 MG TABLET PO SCH ×2 (10:04→21:41)
[2020-09-24] MEDS: HYDROCHLOROTHIAZIDE 25 MG TABLET (FP) PO SCH (10:04)
[2020-09-24] MEDS: PRENATAL VITAMINS W/ FOLIC ACID TABLET (FP) PO SCH (10:04)
[2020-09-24] MEDS ORDERED: PT OWN MED DRAWER 7, Y5N ONE ×3 (11:41→21:42)
[2020-09-24] MEDS: BISACODYL 5 MG TABLET.DR (FP) PO PRN (11:41)
[2020-09-24] MEDS: FLUTICASONE PROP 0.05% 16 GM NASAL SPRAY NS PRN (13:38)
[2020-09-24] MEDS: MELATONIN 5 MG TABLETS PO SCH (21:40)
[2020-09-24] MEDS: MIRTAZAPINE 15 MG TABLET (FP) PO SCH (21:41)
[2020-09-24] MEDS: THIAMINE HCL 100 MG TABLET (FP) PO SCH (21:44)
[2020-09-25] MEDS: hydrOXYzine PAMOATE 25 MG CAPSULE (FP) PO SCH ×5 (06:29→22:43)
[2020-09-25] MEDS ORDERED: PT OWN MED DRAWER 7, Y5N ONE ×2 (08:54→12:19)
[2020-09-25] MEDS: PRENATAL VITAMINS W/ FOLIC ACID TABLET (FP) PO SCH (09:32)
[2020-09-25] MEDS: HYDROCHLOROTHIAZIDE 25 MG TABLET (FP) PO SCH (09:32)
[2020-09-25] MEDS: FLUTICASONE PROP 0.05% 16 GM NASAL SPRAY NS PRN (09:32)
[2020-09-25] MEDS: NICOTINE 7 MG/24 HOURS TOPICAL PATCH TD SCH (09:33)
[2020-09-25] MEDS: FAMOTIDINE 20 MG TABLET PO SCH ×2 (10:18→21:12)
[2020-09-25] MEDS: ACETAMINOPHEN 325 MG TABLET (FP) PO PRN ×2 (11:21→21:13)
[2020-09-25] MEDS: BISACODYL 5 MG TABLET.DR (FP) PO PRN (12:33)
[2020-09-25] MEDS: MELATONIN 5 MG TABLETS PO SCH (21:11)
[2020-09-25] MEDS: MIRTAZAPINE 15 MG TABLET (FP) PO SCH (21:12)
[2020-09-25] MEDS: THIAMINE HCL 100 MG TABLET (FP) PO SCH (21:12)
[2020-09-26] MEDS: hydrOXYzine PAMOATE 25 MG CAPSULE (FP) PO SCH ×2 (06:10→08:59)
[2020-09-26] MEDS ORDERED: PT OWN MED DRAWER 7, Y5N ONE (06:27)
[2020-09-26] MEDS: FLUTICASONE PROP 0.05% 16 GM NASAL SPRAY NS PRN ×2 (06:27→08:59)
[2020-09-26 07:08] VITALS: BP 145/84; PULSE 71; TEMP 97.4
[2020-09-26] MEDS: HYDROCHLOROTHIAZIDE 25 MG TABLET (FP) PO SCH (08:59)
[2020-09-26] MEDS: NICOTINE 7 MG/24 HOURS TOPICAL PATCH TD SCH (08:59)
[2020-09-26] MEDS: PRENATAL VITAMINS W/ FOLIC ACID TABLET (FP) PO SCH (08:59)
[2020-09-26] MEDS: FAMOTIDINE 20 MG TABLET PO SCH (08:59)
== END 2020-09-26 09:25 | disposition home or self-care (01) | DRG 772 ==
LOC: YASAS 12:11 → Y3E 16:50
PROVIDERS: ADMIT Allergy & Immunology; ATTEND Allergy & Immunology
PROC: HZ42ZZZ Group Counseling for Substance Abuse Treatment, Cognitive-Behavioral (ICD-10-PCS; principal; 2020-09-19)
DX: F10.220 Alcohol dependence with intoxication, uncomplicated (principal); F14.20 Cocaine dependence, uncomplicated; F12.20 Cannabis dependence, uncomplicated; F17.210 Nicotine dependence, cigarettes, uncomplicated; F32.9 Major depressive disorder, single episode, unspecified; F19.24 Other psychoactive substance dependence with psychoactive substance-induced mood disorder; F19.282 Other psychoactive substance dependence with psychoactive substance-induced sleep disorder; I10 Essential (primary) hypertension; K21.9 Gastro-esophageal reflux disease without esophagitis; B18.2 Chronic viral hepatitis C; E78.00 Pure hypercholesterolemia, unspecified; K40.90 Unilateral inguinal hernia, without obstruction or gangrene, not specified as recurrent; N40.0 Benign prostatic hyperplasia without lower urinary tract symptoms; D64.9 Anemia, unspecified; R26.2 Difficulty in walking, not elsewhere classified; Z99.89 Dependence on other enabling machines and devices; Z86.69 Personal history of other diseases of the nervous system and sense organs; Z91.14 Patient's other noncompliance with medication regimen; Z56.0 Unemployment, unspecified
CPT/HCPCS: 36415; 71046-TC-FY; 80053; 81003; 85025; 86780; 93005; 93010; C9803; U0003; U0005

== ENCOUNTER 2020-09-21 18:45 | Emergency (ER) | payer OTHER ==
[2020-09-21 19:01] VITALS: BMI 24.3
[2020-09-22 01:01] VITALS: BP 148/99; PULSE 71; TEMP 99.4
== END 2020-09-22 02:46 | disposition home or self-care (01) ==
LOC: JER 18:45
DX: F10.230 Alcohol dependence with withdrawal, uncomplicated (principal)
CPT/HCPCS: 99283-25

== ENCOUNTER 2022-05-17 18:04 | Inpatient (IN) | payer OTHER ==
[2022-05-17 20:58] VITALS: BMI 23.2
[2022-05-17] MEDS ORDERED: NALOXONE HCL (KLOXXADO) 8 MG SPRAY NS PRN (23:52)
[2022-05-17] MEDS ORDERED: IBUPROFEN 400 MG TABLET (FP) PO PRN (23:52)
[2022-05-17] MEDS ORDERED: MAGNESIUM HYDROX 2400MG/30ML ORAL SUSPENSION 30 ML CUP PO PRN (23:52)
[2022-05-17] MEDS ORDERED: BENZOCAINE/MENTHOL (CHLORASEPTIC ) LOZENGE MM PRN (23:52)
[2022-05-17] MEDS ORDERED: NICOTINE 10 MG CARTRIDGE (INHALER) IH PRN (23:52)
[2022-05-17] MEDS ORDERED: POLYETHYLENE GLYCOL (HEALTHYLAX) 3350 17 GM PACKET PO PRN (23:52)
[2022-05-17] MEDS ORDERED: ACETAMINOPHEN 325 MG TABLET (FP) PO PRN (23:52)
[2022-05-17] MEDS ORDERED: ONDANSETRON *ODT* 4 MG TABLET SL PRN (23:52)
[2022-05-17] MEDS ORDERED: BISMUTH SUBSALICYLATE 524 MG/30 ML PO PRN (23:52)
[2022-05-17] MEDS ORDERED: NALOXONE HCL 0.4 MG/ML VIAL IM PRN (23:52)
[2022-05-17] MEDS ORDERED: guaiFENesin 600 MG TABLET.ER (FP) PO PRN (23:52)
[2022-05-17] MEDS ORDERED: LOPERAMIDE HCL 2 MG CAPSULE PO PRN (23:52)
[2022-05-17] MEDS ORDERED: DICYCLOMINE HCL 10 MG CAPSULE PO PRN (23:52)
[2022-05-17] MEDS ORDERED: MAG HYDROX/AL HYDROX/SIMETH 30 ML UNIT-DOSE CUP PO PRN (23:52)
[2022-05-17] MEDS ORDERED: BENZONATATE 200 MG CAPSULE PO PRN (23:52)
[2022-05-18] MEDS ORDERED: ONDANSETRON *ODT* 4 MG TABLET ONE (00:47)
[2022-05-18] MEDS ORDERED: chlordiazePOXIDE HCL 25 MG CAPSULE PO PRN (00:57)
[2022-05-18] MEDS: chlordiazePOXIDE HCL 25 MG CAPSULE PO SCH ×4 (05:41→22:41)
[2022-05-18 11:15] LABS: HEMATOCRIT 37.2 % (35.4-49); HEMOGLOBIN 12.9 GM/dL (11.7-16.9); MCH 30.6 pg (25.7-33.7); MCHC 34.6 g/dl (32.0-35.9); MEAN CELL VOLUME 88.4 fl (80-96); MEAN PLT VOLUME 8.2 fl (7.5-11.1); PLATELET COUNT 178 10^3/uL (134-434); RBC 4.21 M/mm3 (4.00-5.60)
[2022-05-18] MEDS: NICOTINE 14 MG/24 HOURS TOPICAL PATCH TD SCH ×2 (11:20→11:32)
[2022-05-18] MEDS: PRENATAL VITAMINS W/ FOLIC ACID TABLET (FP) PO SCH (11:20)
[2022-05-18] MEDS: IBUPROFEN 600 MG TABLET (FP) PO PRN (11:38)
[2022-05-18] MEDS: THIAMINE HCL 100 MG TABLET (FP) PO SCH (22:42)
[2022-05-18] MEDS: MELATONIN 5 MG TABLETS PO SCH (22:42)
[2022-05-19 02:01] LABS: BILIRUBIN,TOTAL 1.1 mg/dL (0.2-1); TOT PROT 8.3 g/dl (6.4-8.2)
[2022-05-19] MEDS: chlordiazePOXIDE HCL 25 MG CAPSULE PO SCH ×4 (05:25→22:05)
[2022-05-19] MEDS: NICOTINE 14 MG/24 HOURS TOPICAL PATCH TD SCH (10:39)
[2022-05-19] MEDS: PRENATAL VITAMINS W/ FOLIC ACID TABLET (FP) PO SCH (10:39)
[2022-05-19] MEDS: IBUPROFEN 600 MG TABLET (FP) PO PRN (10:43)
[2022-05-19] MEDS: METHOCARBAMOL 500 MG TABLET PO PRN (17:34)
[2022-05-19] MEDS: THIAMINE HCL 100 MG TABLET (FP) PO SCH (22:05)
[2022-05-19] MEDS: MELATONIN 5 MG TABLETS PO SCH (22:05)
[2022-05-20] MEDS ORDERED: chlordiazePOXIDE HCL 10 MG CAPSULE PO PRN
[2022-05-20] MEDS: chlordiazePOXIDE HCL 10 MG CAPSULE PO SCH ×4 (05:43→22:17)
[2022-05-20] MEDS: NICOTINE 14 MG/24 HOURS TOPICAL PATCH TD SCH (10:05)
[2022-05-20] MEDS: PRENATAL VITAMINS W/ FOLIC ACID TABLET (FP) PO SCH (10:06)
[2022-05-20] MEDS: IBUPROFEN 600 MG TABLET (FP) PO PRN (10:07)
[2022-05-20] MEDS: MELATONIN 5 MG TABLETS PO SCH (22:17)
[2022-05-20] MEDS: THIAMINE HCL 100 MG TABLET (FP) PO SCH (22:17)
[2022-05-21] MEDS: chlordiazePOXIDE HCL 10 MG CAPSULE PO SCH ×2 (05:21→17:13)
[2022-05-21] MEDS: PRENATAL VITAMINS W/ FOLIC ACID TABLET (FP) PO SCH (10:28)
[2022-05-21] MEDS: NICOTINE 14 MG/24 HOURS TOPICAL PATCH TD SCH (10:29)
[2022-05-21] MEDS: METHOCARBAMOL 500 MG TABLET PO PRN (10:29)
[2022-05-21] MEDS: IBUPROFEN 600 MG TABLET (FP) PO PRN (10:30)
[2022-05-21] MEDS ORDERED: DOCUSATE SODIUM 100 MG CAPSULE (FP) PO SCH (22:00)
[2022-05-21] MEDS: THIAMINE HCL 100 MG TABLET (FP) PO SCH (22:03)
[2022-05-21] MEDS: MELATONIN 5 MG TABLETS PO SCH (22:04)
[2022-05-22] MEDS ORDERED: chlordiazePOXIDE HCL 10 MG CAPSULE PO ONE (05:00)
[2022-05-22] MEDS: IBUPROFEN 600 MG TABLET (FP) PO PRN (10:13)
[2022-05-22] MEDS: PRENATAL VITAMINS W/ FOLIC ACID TABLET (FP) PO SCH (10:13)
[2022-05-22] MEDS: NICOTINE 14 MG/24 HOURS TOPICAL PATCH TD SCH (10:14)
[2022-05-22] MEDS ORDERED: LACTULOSE 20 GM/30 ML UDC (FOR ORAL USE ONLY) PO ONE (12:19)
[2022-05-22 13:04] VITALS: BP 151/85; PULSE 78; RESP 18; TEMP 96.8
[2022-05-22] MEDS ORDERED: LACTULOSE 20 GM/30 ML UDC (FOR ORAL USE ONLY) PO SCH (14:00)
== END 2022-05-22 14:06 | disposition home or self-care (01) | DRG 774 ==
LOC: YASAS 18:04 → UNDOADMIN 05-18 01:29 → Y3N 05-18 01:29 → Y6N 05-18 05:14
PROVIDERS: ADMIT Allergy & Immunology; ATTEND Surgery
PROC: HZ2ZZZZ Detoxification Services for Substance Abuse Treatment (ICD-10-PCS; principal; 2022-05-18)
DX: F10.230 Alcohol dependence with withdrawal, uncomplicated (principal); F14.20 Cocaine dependence, uncomplicated; F12.20 Cannabis dependence, uncomplicated; F17.210 Nicotine dependence, cigarettes, uncomplicated; F32.A Depression, unspecified; E78.5 Hyperlipidemia, unspecified; I10 Essential (primary) hypertension; K21.9 Gastro-esophageal reflux disease without esophagitis; R79.89 Other specified abnormal findings of blood chemistry; R76.11 Nonspecific reaction to tuberculin skin test without active tuberculosis; R63.4 Abnormal weight loss; Z68.23 Body mass index [BMI] 23.0-23.9, adult; Z99.89 Dependence on other enabling machines and devices
CPT/HCPCS: 36415; 71046-TC-FY; 80053; 82140; 85027; 86780; 87811; 93005; 93010; C9803-CS; Q0162; U0003; U0005

== ENCOUNTER 2023-04-04 11:54 | Inpatient (IN) | payer OTHER ==
[2023-04-04 12:30] VITALS: BMI 22.2
[2023-04-04] MEDS ORDERED: NALOXONE HCL 0.4 MG/ML VIAL IM PRN (13:50)
[2023-04-04] MEDS ORDERED: NICOTINE POLACRILEX 2 MG GUM BUC PRN (13:50)
[2023-04-04] MEDS ORDERED: MAG HYDROX/AL HYDROX/SIMETH 30 ML UNIT-DOSE CUP PO PRN (13:50)
[2023-04-04] MEDS ORDERED: NALOXONE HCL (KLOXXADO) 8 MG SPRAY NS PRN (13:50)
[2023-04-04] MEDS ORDERED: hydrOXYzine PAMOATE 25 MG CAPSULE (FP) PO PRN (13:50)
[2023-04-04] MEDS ORDERED: ONDANSETRON *ODT* 4 MG TABLET SL PRN (13:50)
[2023-04-04] MEDS ORDERED: guaiFENesin 600 MG TABLET.ER (FP) PO PRN (13:50)
[2023-04-04] MEDS ORDERED: MAGNESIUM HYDROX 2400MG/30ML ORAL SUSPENSION 30 ML CUP PO PRN (13:50)
[2023-04-04] MEDS ORDERED: BENZONATATE 200 MG CAPSULE PO PRN (13:50)
[2023-04-04] MEDS ORDERED: LOPERAMIDE HCL 2 MG CAPSULE PO PRN (13:50)
[2023-04-04] MEDS ORDERED: LORazepam 1 MG TABLET PO PRN (13:50)
[2023-04-04] MEDS ORDERED: POLYETHYLENE GLYCOL (HEALTHYLAX) 3350 17 GM PACKET PO PRN (13:50)
[2023-04-04] MEDS ORDERED: BENZOCAINE/MENTHOL (CHLORASEPTIC ) LOZENGE MM PRN (13:50)
[2023-04-04] MEDS ORDERED: DICYCLOMINE HCL 10 MG CAPSULE PO PRN (13:50)
[2023-04-04] MEDS: PRENATAL VITAMINS W/ FOLIC ACID TABLET (FP) PO SCH (16:26)
[2023-04-04] MEDS ORDERED: LORazepam 2 MG TABLET ONE (16:54)
[2023-04-04] MEDS: LORazepam 1 MG TABLET PO SCH (16:56)
[2023-04-04] MEDS: MELATONIN 5 MG TABLETS PO SCH (22:46)
[2023-04-04] MEDS: THIAMINE HCL 100 MG TABLET (FP) PO SCH (22:47)
[2023-04-04] MEDS: METHOCARBAMOL 500 MG TABLET PO PRN (22:47)
[2023-04-04] MEDS: FLUTICASONE PROP 0.05% 16 GM NASAL SPRAY NS SCH (23:39)
[2023-04-05] MEDS: HYDROCHLOROTHIAZIDE 25 MG TABLET (FP) PO SCH (10:37)
[2023-04-05 13:47] LABS: HEMATOCRIT 34.1 % (35.4-49); HEMOGLOBIN 11.6 GM/dL (11.7-16.9); MCH 30.6 pg (25.7-33.7); MEAN CELL VOLUME 90.1 fl (80-96); PLATELET COUNT 157 10^3/uL (134-434); RBC 3.79 M/mm3 (4.00-5.60); RDW 13.9 % (11.9-15.9); WHITE BLOOD COUNT 3.5 K/mm3 (4.0-10.0)
[2023-04-05 13:49] LABS: CHLORIDE 103 mmol/L (98-107); POTASSIUM 3.9 mmol/L (3.5-5.1); SODIUM 136 mmol/L (136-145)
[2023-04-05 13:55] LABS: ALBUMIN 3.9 g/dl (3.4-5.0); ANION GAP 5 mmol/L (4-13); BLOOD UREA NITROGEN 12.9 mg/dL (7-18); CO2 28 mmol/L (21-32)
[2023-04-05 13:58] LABS: CREATININE 1.1 mg/dL (0.55-1.3); SGOT/AST 136 U/L (15-37); SGPT/ALT 76 U/L (13-61)
[2023-04-05 14:00] LABS: BILIRUBIN,TOTAL 1.2 mg/dL (0.2-1)
[2023-04-05 14:01] LABS: ALK PHOS 95 U/L (45-117); GLUCOSE,RANDOM 136 mg/dL (74-106)
[2023-04-05] MEDS: ACETAMINOPHEN 325 MG TABLET (FP) PO PRN (17:30)
[2023-04-05] MEDS: MIRTAZAPINE 15 MG TABLET (FP) PO SCH (22:20)
[2023-04-06] MEDS: LORazepam 1 MG TABLET PO SCH (05:57)
[2023-04-06] MEDS: IBUPROFEN 600 MG TABLET (FP) PO PRN (10:28)
[2023-04-06] MEDS: LACTULOSE 20 GM/30 ML UDC (FOR ORAL USE ONLY) PO SCH (22:07)
[2023-04-07] MEDS ORDERED: LORazepam 0.5 MG TABLET PO PRN
[2023-04-07] MEDS: LORazepam 0.5 MG TABLET PO SCH (06:00)
[2023-04-07] MEDS: IBUPROFEN 400 MG TABLET (FP) PO PRN (17:49)
[2023-04-07] MEDS: BISMUTH SUBSALICYLATE 262 MG/15 ML BTL PO PRN (17:52)
[2023-04-08] MEDS: LORazepam 0.5 MG TABLET PO ONE (05:46)
[2023-04-08 09:52] VITALS: RESP 18
[2023-04-08 13:23] VITALS: BP 125/73; PULSE 88; TEMP 97.9
== END 2023-04-08 15:46 | disposition home or self-care (01) | DRG 897 ==
LOC: YASAS 11:54 → Y3N 16:37
PROVIDERS: ADMIT Allergy & Immunology; ATTEND Surgery
PROC: HZ2ZZZZ Detoxification Services for Substance Abuse Treatment (ICD-10-PCS; principal; 2023-04-04)
DX: F10.230 Alcohol dependence with withdrawal, uncomplicated (principal); F19.282 Other psychoactive substance dependence with psychoactive substance-induced sleep disorder; E72.20 Disorder of urea cycle metabolism, unspecified; Z59.00 Homelessness unspecified; F19.24 Other psychoactive substance dependence with psychoactive substance-induced mood disorder; F32.9 Major depressive disorder, single episode, unspecified; E78.5 Hyperlipidemia, unspecified; I10 Essential (primary) hypertension; K21.9 Gastro-esophageal reflux disease without esophagitis; R74.8 Abnormal levels of other serum enzymes; Z99.89 Dependence on other enabling machines and devices; Z86.19 Personal history of other infectious and parasitic diseases; Z86.69 Personal history of other diseases of the nervous system and sense organs
CPT/HCPCS: 36415; 80053; 80307; 82140; 85027; 86780; 87635; 93005; 93010

== ENCOUNTER 2023-08-03 14:27 | Inpatient (IN) | payer OTHER ==
[2023-08-03 15:27] VITALS: BMI 22.1
[2023-08-03] MEDS ORDERED: LOPERAMIDE HCL 2 MG CAPSULE PO PRN (16:20)
[2023-08-03] MEDS ORDERED: P-EPHED 60MG/TRIPROLIDI 2.5MG TABLET PO PRN (16:20)
[2023-08-03] MEDS ORDERED: DOCUSATE SODIUM 100 MG CAPSULE (FP) PO PRN (16:20)
[2023-08-03] MEDS ORDERED: NICOTINE POLACRILEX 2 MG LOZENGE BC PRN (16:20)
[2023-08-03] MEDS ORDERED: IBUPROFEN 400 MG TABLET (FP) PO PRN (16:20)
[2023-08-03] MEDS ORDERED: guaiFENesin 600 MG TABLET.ER (FP) PO PRN (16:20)
[2023-08-03] MEDS ORDERED: MAGNESIUM HYDROX 2400MG/30ML ORAL SUSPENSION 30 ML CUP PO PRN (16:20)
[2023-08-03] MEDS ORDERED: ACETAMINOPHEN 325 MG TABLET (FP) PO PRN (16:20)
[2023-08-03] MEDS ORDERED: NICOTINE POLACRILEX 2 MG GUM BUC PRN (16:20)
[2023-08-03] MEDS ORDERED: BISMUTH SUBSALICYLATE 524 MG/30 ML PO PRN (16:20)
[2023-08-03] MEDS ORDERED: BISACODYL 5 MG TABLET.DR (FP) PO PRN (16:20)
[2023-08-03] MEDS ORDERED: BENZONATATE 200 MG CAPSULE PO PRN (16:20)
[2023-08-03] MEDS ORDERED: BENZOCAINE/MENTHOL (CHLORASEPTIC ) LOZENGE MM PRN (16:20)
[2023-08-03] MEDS ORDERED: POLYETHYLENE GLYCOL (HEALTHYLAX) 3350 17 GM PACKET PO PRN (16:20)
[2023-08-03] MEDS ORDERED: amLODIPine BESYLATE 5 MG TABLET (FP) ONE (16:51)
[2023-08-03] MEDS: amLODIPine BESYLATE 10 MG TABLET (FP) PO ONE (16:55)
[2023-08-03] MEDS ORDERED: LORazepam 1 MG TABLET PO PRN (20:33)
[2023-08-03] MEDS: LORazepam 2 MG TABLET PO SCH (22:03)
[2023-08-03] MEDS: MELATONIN 5 MG TABLETS PO SCH (22:05)
[2023-08-03] MEDS: THIAMINE 100 MG TABLET PO SCH (22:05)
[2023-08-03] MEDS: FLUTICASONE PROP 0.05% 16 GM NASAL SPRAY NS SCH (22:05)
[2023-08-04] MEDS: MAG HYDROX/AL HYDROX/SIMETH 30 ML UNIT-DOSE CUP PO PRN (03:42)
[2023-08-04] MEDS: ONDANSETRON *ODT* 4 MG TABLET SL PRN (05:51)
[2023-08-04] MEDS: IBUPROFEN 600 MG TABLET (FP) PO PRN (05:51)
[2023-08-04] MEDS: PRENATAL VITAMINS W/ FOLIC ACID TABLET (FP) PO SCH (10:45)
[2023-08-04] MEDS: HYDROCHLOROTHIAZIDE 25 MG TABLET (FP) PO SCH (10:46)
[2023-08-04] MEDS: MIRTAZAPINE 15 MG TABLET (FP) PO SCH (22:49)
[2023-08-05] MEDS: LORazepam 1 MG TABLET PO SCH (06:18)
[2023-08-05 12:47] VITALS: RESP 16
[2023-08-05 16:59] VITALS: TEMP 97.3
[2023-08-05 18:55] VITALS: BP 138/92; PULSE 74
[2023-08-06] MEDS ORDERED: LORazepam 0.5 MG TABLET PO PRN
[2023-08-06] MEDS ORDERED: LORazepam 0.5 MG TABLET PO SCH (05:00)
[2023-08-07] MEDS ORDERED: LORazepam 0.5 MG TABLET PO ONE (05:00)
== END 2023-08-05 18:05 | disposition left against medical advice (07) | DRG 894 ==
LOC: YASAS 14:27 → Y6N 17:16
PROVIDERS: ADMIT Allergy & Immunology; ATTEND Surgery
PROC: HZ2ZZZZ Detoxification Services for Substance Abuse Treatment (ICD-10-PCS; principal; 2023-08-03)
DX: F10.230 Alcohol dependence with withdrawal, uncomplicated (principal); Z59.00 Homelessness unspecified; F12.20 Cannabis dependence, uncomplicated; F17.210 Nicotine dependence, cigarettes, uncomplicated; F10.280 Alcohol dependence with alcohol-induced anxiety disorder; F10.282 Alcohol dependence with alcohol-induced sleep disorder; F10.24 Alcohol dependence with alcohol-induced mood disorder; F32.A Depression, unspecified; E78.5 Hyperlipidemia, unspecified; I10 Essential (primary) hypertension; K21.9 Gastro-esophageal reflux disease without esophagitis; J30.9 Allergic rhinitis, unspecified; R53.1 Weakness; Z99.89 Dependence on other enabling machines and devices; Z88.8 Allergy status to other drugs, medicaments and biological substances
CPT/HCPCS: 80305; 80307; Q0162

== ENCOUNTER 2023-09-02 13:49 | Inpatient (IN) | payer OTHER ==
[2023-09-02 14:25] VITALS: BMI 22.6
[2023-09-02] MEDS ORDERED: BENZOCAINE/MENTHOL (CHLORASEPTIC ) LOZENGE MM PRN (17:12)
[2023-09-02] MEDS ORDERED: LOPERAMIDE HCL 2 MG CAPSULE PO PRN (17:12)
[2023-09-02] MEDS ORDERED: IBUPROFEN 600 MG TABLET (FP) PO PRN (17:12)
[2023-09-02] MEDS ORDERED: POLYETHYLENE GLYCOL (HEALTHYLAX) 3350 17 GM PACKET PO PRN (17:12)
[2023-09-02] MEDS ORDERED: NICOTINE POLACRILEX 2 MG GUM BUC PRN (17:12)
[2023-09-02] MEDS ORDERED: ONDANSETRON *ODT* 4 MG TABLET SL PRN (17:12)
[2023-09-02] MEDS ORDERED: BENZONATATE 200 MG CAPSULE PO PRN (17:12)
[2023-09-02] MEDS ORDERED: NICOTINE POLACRILEX 2 MG LOZENGE BC PRN (17:12)
[2023-09-02] MEDS ORDERED: guaiFENesin 600 MG TABLET.ER (FP) PO PRN (17:12)
[2023-09-02] MEDS ORDERED: IBUPROFEN 400 MG TABLET (FP) PO PRN (17:12)
[2023-09-02] MEDS ORDERED: BISMUTH SUBSALICYLATE 524 MG/30 ML PO PRN (17:12)
[2023-09-02] MEDS: chlordiazePOXIDE HCL 25 MG CAPSULE PO PRN (19:08)
[2023-09-02] MEDS: amLODIPine BESYLATE 5 MG TABLET (FP) PO ONE (21:17)
[2023-09-02] MEDS: chlordiazePOXIDE HCL 25 MG CAPSULE PO SCH (22:31)
[2023-09-02] MEDS: THIAMINE 100 MG TABLET PO SCH (22:31)
[2023-09-02] MEDS: MELATONIN 5 MG TABLETS PO SCH (22:32)
[2023-09-03] MEDS: MAG HYDROX/AL HYDROX/SIMETH 30 ML UNIT-DOSE CUP PO PRN (03:46)
[2023-09-03] MEDS: chlordiazePOXIDE HCL 25 MG CAPSULE PO SCH (06:05)
[2023-09-03] MEDS ORDERED: HYDROCHLOROTHIAZIDE 25 MG TABLET (FP) PO SCH (10:00)
[2023-09-03] MEDS: PRENATAL VITAMINS W/ FOLIC ACID TABLET (FP) PO SCH (10:14)
[2023-09-03 11:41] LABS: HEMATOCRIT 36.8 % (35.4-49); HEMOGLOBIN 12.3 GM/dL (11.7-16.9); MCH 31.3 pg (25.7-33.7); MCHC 33.4 g/dl (32.0-35.9); MEAN CELL VOLUME 93.6 fl (80-96); MEAN PLT VOLUME 8.3 fl (7.5-11.1); PLATELET COUNT 138 10^3/uL (134-434); RBC 3.93 M/mm3 (4.00-5.60); RDW 12.9 % (11.9-15.9); WHITE BLOOD COUNT 3.2 K/mm3 (4.0-10.0)
[2023-09-03] MEDS: HYDROCHLOROTHIAZIDE 25 MG TABLET (FP) PO ONE (11:45)
[2023-09-03 13:51] LABS: CHLORIDE 103 mmol/L (98-107); POTASSIUM 3.7 mmol/L (3.5-5.1); SODIUM 138 mmol/L (136-145)
[2023-09-03] MEDS: ACETAMINOPHEN 325 MG TABLET (FP) PO PRN (13:51)
[2023-09-03 13:55] LABS: CALCIUM 8.6 mg/dL (8.5-10.1)
[2023-09-03 13:56] LABS: CO2 25 mmol/L (21-32); GLUCOSE,RANDOM 87 mg/dL (74-106)
[2023-09-03 13:59] LABS: CREATININE 0.7 mg/dL (0.55-1.3); SGOT/AST 154 U/L (15-37); SGPT/ALT 61 U/L (13-61)
[2023-09-03 14:01] LABS: BILIRUBIN,TOTAL 1.4 mg/dL (0.2-1); TOT PROT 8.5 g/dl (6.4-8.2)
[2023-09-03 14:02] LABS: ALK PHOS 106 U/L (45-117)
[2023-09-03] MEDS ORDERED: LORazepam 1 MG TABLET PO PRN (14:28)
[2023-09-03] MEDS: amLODIPine BESYLATE 5 MG TABLET (FP) PO SCH (14:39)
[2023-09-03] MEDS: LORazepam 2 MG TABLET PO SCH (17:26)
[2023-09-03] MEDS: MIRTAZAPINE 15 MG TABLET (FP) PO SCH (23:03)
[2023-09-03] MEDS: FLUTICASONE PROP 0.05% 16 GM NASAL SPRAY NS SCH (23:09)
[2023-09-04] MEDS ORDERED: chlordiazePOXIDE HCL 10 MG CAPSULE PO SCH (05:00)
[2023-09-04] MEDS: LORazepam 1 MG TABLET PO SCH (05:28)
[2023-09-04] MEDS: HYDROCHLOROTHIAZIDE 25 MG TABLET (FP) PO SCH (07:14)
[2023-09-05] MEDS ORDERED: chlordiazePOXIDE HCL 10 MG CAPSULE PO PRN
[2023-09-05] MEDS ORDERED: chlordiazePOXIDE HCL 10 MG CAPSULE PO SCH (05:00)
[2023-09-05] MEDS: LORazepam 0.5 MG TABLET PO SCH (05:27)
[2023-09-05] MEDS: hydrOXYzine PAMOATE 25 MG CAPSULE (FP) PO PRN (11:43)
[2023-09-05] MEDS: IBUPROFEN 600 MG TABLET (FP) PO PRN (22:44)
[2023-09-06] MEDS ORDERED: chlordiazePOXIDE HCL 10 MG CAPSULE PO ONE (05:00)
[2023-09-06] MEDS: LORazepam 0.5 MG TABLET PO ONE ×2 (07:40→07:41)
[2023-09-07] MEDS: ACETAMINOPHEN 325 MG TABLET (FP) PO ONE (08:22)
[2023-09-07] MEDS: levETIRAcetam 500 MG TABLET (FP) PO SCH (17:16)
[2023-09-07] MEDS: MELATONIN 5 MG TABLETS PO SCH (22:36)
[2023-09-08] MEDS: MAGNESIUM HYDROX 2400MG/30ML ORAL SUSPENSION 30 ML CUP PO PRN (09:26)
[2023-09-08 09:44] VITALS: BP 140/81; PULSE 71; RESP 16; TEMP 98.6
== END 2023-09-08 11:41 | disposition other institution (70) | DRG 897 ==
LOC: YASAS 13:49 → Y6N 18:01
PROVIDERS: ADMIT Allergy & Immunology; ATTEND Surgery
PROC: HZ2ZZZZ Detoxification Services for Substance Abuse Treatment (ICD-10-PCS; principal; 2023-09-02)
DX: F10.230 Alcohol dependence with withdrawal, uncomplicated (principal); F14.20 Cocaine dependence, uncomplicated; F17.210 Nicotine dependence, cigarettes, uncomplicated; F10.282 Alcohol dependence with alcohol-induced sleep disorder; F10.24 Alcohol dependence with alcohol-induced mood disorder; F32.A Depression, unspecified; E78.5 Hyperlipidemia, unspecified; I10 Essential (primary) hypertension; K21.9 Gastro-esophageal reflux disease without esophagitis; J30.9 Allergic rhinitis, unspecified; R74.01 Elevation of levels of liver transaminase levels
CPT/HCPCS: 36415; 80053; 80305; 80307; 84450; 85027; 86780; 87811

== ENCOUNTER 2023-09-08 11:50 | Inpatient (IN) | payer OTHER ==
[2023-09-08] MEDS ORDERED: METHOCARBAMOL 500 MG TABLET PO PRN (13:47)
[2023-09-08] MEDS ORDERED: BENZOCAINE/MENTHOL (CHLORASEPTIC ) LOZENGE MM PRN (13:47)
[2023-09-08] MEDS ORDERED: NALOXONE HCL 0.4 MG/ML VIAL IVPUSH PRN (13:47)
[2023-09-08] MEDS ORDERED: NALOXONE (NARCAN) HCL 4 MG/0.1 ML SPRAY NS PRN (13:47)
[2023-09-08] MEDS ORDERED: POLYETHYLENE GLYCOL (HEALTHYLAX) 3350 17 GM PACKET PO PRN (13:47)
[2023-09-08] MEDS ORDERED: LOPERAMIDE HCL 2 MG CAPSULE PO PRN (13:47)
[2023-09-08] MEDS ORDERED: IBUPROFEN 400 MG TABLET (FP) PO PRN (13:47)
[2023-09-08] MEDS ORDERED: BENZONATATE 200 MG CAPSULE PO PRN (13:47)
[2023-09-08] MEDS ORDERED: MAG HYDROX/AL HYDROX/SIMETH 30 ML UNIT-DOSE CUP PO PRN (13:47)
[2023-09-08] MEDS ORDERED: guaiFENesin 600 MG TABLET.ER (FP) PO PRN (13:47)
[2023-09-08] MEDS ORDERED: NICOTINE 7 MG/24 HOURS TOPICAL PATCH TD PRN (14:27)
[2023-09-08] MEDS: NICOTINE 7 MG/24 HOURS TOPICAL PATCH TD SCH (14:46)
[2023-09-08] MEDS: THIAMINE 100 MG TABLET PO SCH (21:16)
[2023-09-08] MEDS: MELATONIN 5 MG TABLETS PO SCH (21:16)
[2023-09-08] MEDS: FLUTICASONE PROP 0.05% 16 GM NASAL SPRAY NS SCH (21:16)
[2023-09-08] MEDS: IBUPROFEN 600 MG TABLET (FP) PO PRN (21:18)
[2023-09-08] MEDS: hydrOXYzine PAMOATE 25 MG CAPSULE (FP) PO PRN (21:18)
[2023-09-08] MEDS: MIRTAZAPINE 15 MG TABLET (FP) PO SCH (21:18)
[2023-09-08] MEDS: MAGNESIUM HYDROX 2400MG/30ML ORAL SUSPENSION 30 ML CUP PO PRN (21:20)
[2023-09-09] MEDS: levETIRAcetam 500 MG TABLET (FP) PO SCH (09:49)
[2023-09-09] MEDS: PRENATAL VITAMINS W/ FOLIC ACID TABLET (FP) PO SCH (09:49)
[2023-09-09] MEDS: amLODIPine BESYLATE 5 MG TABLET (FP) PO SCH (09:49)
[2023-09-09] MEDS: HYDROCHLOROTHIAZIDE 25 MG TABLET (FP) PO SCH (09:49)
[2023-09-09 12:23] LABS: POTASSIUM 3.7 mmol/L (3.5-5.1)
[2023-09-09 12:32] LABS: CALCIUM 9.5 mg/dL (8.5-10.1)
[2023-09-09 12:33] LABS: ALBUMIN 4.2 g/dl (3.4-5.0); BLOOD UREA NITROGEN 12.2 mg/dL (7-18)
[2023-09-09 12:34] LABS: CREATININE 1.2 mg/dL (0.55-1.3)
[2023-09-09 12:35] LABS: BILIRUBIN,TOTAL 1.1 mg/dL (0.2-1); TOT PROT 8.3 g/dl (6.4-8.2)
[2023-09-09 12:58] LABS: HIV INTERPRETATION NEGATIVE (NEGATIVE)
[2023-09-09] MEDS: LACTULOSE 20 GM/30 ML UDC (FOR ORAL USE ONLY) PO SCH (13:07)
[2023-09-09] MEDS: MIRTAZAPINE 15 MG TABLET (FP) PO SCH (21:27)
[2023-09-11] MEDS ORDERED: BISACODYL 5 MG TABLET.DR (FP) PO PRN (14:45)
[2023-09-11] MEDS: DOCUSATE SODIUM 100 MG CAPSULE (FP) PO SCH (21:45)
[2023-09-17] MEDS: SODIUM PHOSPHATE/NA BIPHOS 133 ML ENEMA RC ONE (08:59)
[2023-09-17] MEDS: FLUoxetine HCL 10 MG CAPSULE PO SCH (10:08)
[2023-09-20] MEDS: FLUTICASONE PROP 0.05% 16 GM NASAL SPRAY NS PRN (21:22)
[2023-09-22 08:19] VITALS: TEMP 97.7
[2023-09-22 09:22] VITALS: BP 127/83; PULSE 68; RESP 14
== END 2023-09-22 09:30 | disposition home or self-care (01) | DRG 895 ==
LOC: YASAS 11:50 → Y3E 11:51
PROVIDERS: ADMIT Allergy & Immunology; ATTEND Psychiatry & Neurology Pain Medicine
PROC: HZ42ZZZ Group Counseling for Substance Abuse Treatment, Cognitive-Behavioral (ICD-10-PCS; principal; 2023-09-08)
DX: F10.20 Alcohol dependence, uncomplicated (principal); F19.282 Other psychoactive substance dependence with psychoactive substance-induced sleep disorder; E72.20 Disorder of urea cycle metabolism, unspecified; F12.20 Cannabis dependence, uncomplicated; F17.210 Nicotine dependence, cigarettes, uncomplicated; F32.A Depression, unspecified; F19.24 Other psychoactive substance dependence with psychoactive substance-induced mood disorder; E78.5 Hyperlipidemia, unspecified; I10 Essential (primary) hypertension; K21.9 Gastro-esophageal reflux disease without esophagitis; B18.2 Chronic viral hepatitis C; G40.909 Epilepsy, unspecified, not intractable, without status epilepticus; K59.00 Constipation, unspecified
CPT/HCPCS: 36415; 71046-TC-FY; 80053; 80177; 82140; 86803; 87389

== ENCOUNTER 2024-01-20 11:17 | Inpatient (IN) | payer OTHER ==
[2024-01-20 11:51] VITALS: BMI 24.0
[2024-01-20] MEDS ORDERED: DOCUSATE SODIUM 100 MG CAPSULE (FP) PO PRN (13:20)
[2024-01-20] MEDS ORDERED: FLUTICASONE PROP 0.05% 16 GM NASAL SPRAY NS PRN (13:20)
[2024-01-20] MEDS ORDERED: NICOTINE POLACRILEX 2 MG LOZENGE BC PRN (13:21)
[2024-01-20] MEDS ORDERED: BISMUTH SUBSALICYLATE 262 MG/15 ML BTL PO PRN (13:21)
[2024-01-20] MEDS ORDERED: NICOTINE POLACRILEX 2 MG GUM BUC PRN (13:21)
[2024-01-20] MEDS ORDERED: MAG HYDROX/AL HYDROX/SIMETH 30 ML UNIT-DOSE CUP PO PRN (13:21)
[2024-01-20] MEDS ORDERED: MAGNESIUM HYDROX 2400MG/30ML ORAL SUSPENSION 30 ML CUP PO PRN (13:21)
[2024-01-20] MEDS ORDERED: ONDANSETRON *ODT* 4 MG TABLET SL PRN (13:21)
[2024-01-20] MEDS ORDERED: LOPERAMIDE HCL 2 MG CAPSULE PO PRN (13:21)
[2024-01-20] MEDS ORDERED: BENZONATATE 200 MG CAPSULE PO PRN (13:21)
[2024-01-20] MEDS ORDERED: IBUPROFEN 400 MG TABLET (FP) PO PRN (13:21)
[2024-01-20] MEDS ORDERED: guaiFENesin 600 MG TABLET.ER (FP) PO PRN (13:21)
[2024-01-20] MEDS ORDERED: POLYETHYLENE GLYCOL (HEALTHYLAX) 3350 17 GM PACKET PO PRN (13:21)
[2024-01-20] MEDS ORDERED: BENZOCAINE/MENTHOL (CHLORASEPTIC ) LOZENGE MM PRN (13:21)
[2024-01-20] MEDS ORDERED: chlordiazePOXIDE HCL 25 MG CAPSULE PO PRN (13:24)
[2024-01-20] MEDS: chlordiazePOXIDE HCL 25 MG CAPSULE PO ONE (14:35)
[2024-01-20] MEDS ORDERED: amLODIPine BESYLATE 5 MG TABLET (FP) ONE (14:46)
[2024-01-20] MEDS: amLODIPine BESYLATE 5 MG TABLET (FP) PO SCH (14:47)
[2024-01-20] MEDS: levETIRAcetam 500 MG TABLET (FP) PO SCH (15:18)
[2024-01-20] MEDS: chlordiazePOXIDE HCL 25 MG CAPSULE PO SCH (17:28)
[2024-01-20] MEDS: MELATONIN 5 MG TABLETS PO SCH (22:34)
[2024-01-20] MEDS: THIAMINE 100 MG TABLET PO SCH (22:34)
[2024-01-21] MEDS ORDERED: HYDROCHLOROTHIAZIDE 25 MG TABLET (FP) PO SCH (10:00)
[2024-01-21] MEDS: IBUPROFEN 600 MG TABLET (FP) PO PRN (10:25)
[2024-01-21] MEDS: PRENATAL VITAMINS W/ FOLIC ACID TABLET (FP) PO SCH (10:25)
[2024-01-21] MEDS: HYDROCHLOROTHIAZIDE 12.5 MG CAPSULE (FP) PO SCH (11:56)
[2024-01-21] MEDS: MIRTAZAPINE 15 MG TABLET (FP) PO SCH (22:38)
[2024-01-22] MEDS: chlordiazePOXIDE HCL 25 MG CAPSULE PO SCH (05:58)
[2024-01-22 11:18] LABS: POTASSIUM 3.7 mmol/L (3.5-5.1)
[2024-01-22 11:19] LABS: HEMATOCRIT 36.1 % (35.4-49); HEMOGLOBIN 11.9 GM/dL (11.7-16.9); MCH 31.2 pg (25.7-33.7); MCHC 32.8 g/dl (32.0-35.9); MEAN CELL VOLUME 95.1 fl (80-96); MEAN PLT VOLUME 8.7 fl (7.5-11.1); PLATELET COUNT 146 10^3/uL (134-434); RDW 12.4 % (11.9-15.9); WHITE BLOOD COUNT 3.5 K/mm3 (4.0-10.0)
[2024-01-22 11:20] LABS: ALBUMIN 3.4 g/dl (3.4-5.0); BLOOD UREA NITROGEN 7.2 mg/dL (7-18); CALCIUM 9.4 mg/dL (8.5-10.1)
[2024-01-22 11:24] LABS: CREATININE 0.9 mg/dL (0.55-1.3)
[2024-01-22 11:25] LABS: BILIRUBIN,TOTAL 0.9 mg/dL (0.2-1); TOT PROT 7.5 g/dl (6.4-8.2)
[2024-01-23] MEDS ORDERED: chlordiazePOXIDE HCL 10 MG CAPSULE PO PRN
[2024-01-23] MEDS: chlordiazePOXIDE HCL 10 MG CAPSULE PO SCH (05:39)
[2024-01-23] MEDS: ACETAMINOPHEN 325 MG TABLET (FP) PO PRN (17:03)
[2024-01-24] MEDS: chlordiazePOXIDE HCL 10 MG CAPSULE PO SCH (05:35)
[2024-01-24] MEDS: HYDROCHLOROTHIAZIDE 25 MG TABLET (FP) PO SCH (09:48)
[2024-01-25] MEDS: chlordiazePOXIDE HCL 10 MG CAPSULE PO ONE (05:31)
[2024-01-25 05:47] VITALS: TEMP 97.6
[2024-01-25 08:54] VITALS: BP 142/85; PULSE 72; RESP 16
[2024-01-25] MEDS ORDERED: NALOXONE (NYS OPIOID OVERDOSE PROGRAM) 4 MG/0.1 ML SPRAY NS SCH (11:00)
== END 2024-01-25 09:39 | disposition home or self-care (01) | DRG 897 ==
LOC: YASAS 11:17 → Y6N 14:33
PROVIDERS: ADMIT Allergy & Immunology; ATTEND Surgery
PROC: HZ2ZZZZ Detoxification Services for Substance Abuse Treatment (ICD-10-PCS; principal; 2024-01-20)
DX: F10.230 Alcohol dependence with withdrawal, uncomplicated (principal); F12.20 Cannabis dependence, uncomplicated; F17.210 Nicotine dependence, cigarettes, uncomplicated; F10.282 Alcohol dependence with alcohol-induced sleep disorder; F10.24 Alcohol dependence with alcohol-induced mood disorder; G40.909 Epilepsy, unspecified, not intractable, without status epilepticus; E78.5 Hyperlipidemia, unspecified; I10 Essential (primary) hypertension; K21.9 Gastro-esophageal reflux disease without esophagitis; M54.50 Low back pain, unspecified; G89.29 Other chronic pain; N40.0 Benign prostatic hyperplasia without lower urinary tract symptoms; R74.01 Elevation of levels of liver transaminase levels; R26.89 Other abnormalities of gait and mobility; Z99.89 Dependence on other enabling machines and devices
CPT/HCPCS: 36415; 80053; 80305; 80307; 85027; 86780

== ENCOUNTER 2024-05-17 13:15 | Inpatient (IN) | payer OTHER ==
[2024-05-17] MEDS ORDERED: DICYCLOMINE HCL 10 MG CAPSULE PO PRN (14:00)
[2024-05-17] MEDS ORDERED: BENZOCAINE/MENTHOL (CHLORASEPTIC ) LOZENGE MM PRN (14:00)
[2024-05-17] MEDS ORDERED: POLYETHYLENE GLYCOL (HEALTHYLAX) 3350 17 GM PACKET PO PRN (14:00)
[2024-05-17] MEDS ORDERED: MAGNESIUM HYDROX 2400MG/30ML ORAL SUSPENSION 30 ML CUP PO PRN (14:00)
[2024-05-17] MEDS ORDERED: LOPERAMIDE HCL 2 MG CAPSULE PO PRN (14:00)
[2024-05-17] MEDS ORDERED: IBUPROFEN 600 MG TABLET (FP) PO PRN (14:00)
[2024-05-17] MEDS ORDERED: METHOCARBAMOL 500 MG TABLET PO PRN (14:00)
[2024-05-17] MEDS ORDERED: BENZONATATE 200 MG CAPSULE PO PRN (14:00)
[2024-05-17] MEDS ORDERED: BISMUTH SUBSALICYLATE 262 MG/15 ML BTL PO PRN (14:00)
[2024-05-17] MEDS ORDERED: chlordiazePOXIDE HCL 25 MG CAPSULE PO PRN (14:00)
[2024-05-17] MEDS ORDERED: ONDANSETRON *ODT* 4 MG TABLET SL PRN (14:00)
[2024-05-17] MEDS ORDERED: NICOTINE POLACRILEX 2 MG GUM BUC PRN (14:00)
[2024-05-17] MEDS ORDERED: guaiFENesin 600 MG TABLET.ER (FP) PO PRN (14:00)
[2024-05-17] MEDS ORDERED: MAG HYDROX/AL HYDROX/SIMETH 30 ML UNIT-DOSE CUP PO PRN (14:00)
[2024-05-17] MEDS ORDERED: NALOXONE (NARCAN) HCL 4 MG/0.1 ML SPRAY NS PRN (14:00)
[2024-05-17 14:01] VITALS: BMI 25.7
[2024-05-17] MEDS ORDERED: FLUTICASONE PROP 0.05% 16 GM NASAL SPRAY NS PRN (14:03)
[2024-05-17] MEDS ORDERED: HYDROCHLOROTHIAZIDE 12.5 MG CAPSULE (FP) ONE (15:40)
[2024-05-17] MEDS ORDERED: amLODIPine BESYLATE 5 MG TABLET (FP) ONE (15:40)
[2024-05-17] MEDS: HYDROCHLOROTHIAZIDE 25 MG TABLET (FP) PO SCH (15:41)
[2024-05-17] MEDS: amLODIPine BESYLATE 5 MG TABLET (FP) PO SCH (15:41)
[2024-05-17] MEDS: chlordiazePOXIDE HCL 25 MG CAPSULE PO SCH (17:32)
[2024-05-17] MEDS: NALTREXONE HCL 50 MG TABLET PO ONE (17:32)
[2024-05-17] MEDS: MELATONIN 5 MG TABLETS PO SCH (22:03)
[2024-05-17] MEDS: THIAMINE 100 MG TABLET PO SCH (22:03)
[2024-05-17] MEDS: MIRTAZAPINE 15 MG TABLET (FP) PO SCH (22:03)
[2024-05-17] MEDS: levETIRAcetam 500 MG TABLET (FP) PO SCH (22:03)
[2024-05-18 09:44] LABS: HEMATOCRIT 40.6 % (40.1-51.0); HEMOGLOBIN 13.4 g/dL (13.7-17.5); MEAN CELL VOLUME 92.9 fl (79.0-92.2); MEAN PLT VOLUME 10.8 fl (9.4-12.4); PLATELET COUNT 156 x10^3/uL (163-337); RDW 12.5 % (12.2-16.4)
[2024-05-18 09:49] LABS: POTASSIUM 3.9 mmol/L (3.5-5.1)
[2024-05-18 09:59] LABS: TOT PROT 8.8 g/dl (6.4-8.2)
[2024-05-18 10:02] LABS: BLOOD UREA NITROGEN 10.6 mg/dL (7-18); CALCIUM 8.9 mg/dL (8.5-10.1)
[2024-05-18 10:04] LABS: ALBUMIN 4.1 g/dl (3.4-5.0)
[2024-05-18] MEDS: NALTREXONE HCL 50 MG TABLET PO SCH (10:22)
[2024-05-18] MEDS: PRENATAL VITAMINS W/ FOLIC ACID TABLET (FP) PO SCH (10:22)
[2024-05-19] MEDS: chlordiazePOXIDE HCL 25 MG CAPSULE PO SCH (05:54)
[2024-05-19] MEDS: ACETAMINOPHEN 325 MG TABLET (FP) PO PRN (22:09)
[2024-05-20] MEDS ORDERED: chlordiazePOXIDE HCL 10 MG CAPSULE PO PRN
[2024-05-20] MEDS: chlordiazePOXIDE HCL 10 MG CAPSULE PO SCH (05:29)
[2024-05-20] MEDS: hydrOXYzine PAMOATE 25 MG CAPSULE (FP) PO PRN (10:12)
[2024-05-21] MEDS: chlordiazePOXIDE HCL 10 MG CAPSULE PO SCH (05:27)
[2024-05-21 17:45] VITALS: RESP 16
[2024-05-21] MEDS: IBUPROFEN 400 MG TABLET (FP) PO PRN (22:11)
[2024-05-22] MEDS: chlordiazePOXIDE HCL 10 MG CAPSULE PO ONE (06:24)
[2024-05-22 09:12] VITALS: BP 133/77; PULSE 73; TEMP 97.3
== END 2024-05-22 11:01 | disposition home or self-care (01) | DRG 897 ==
LOC: YASAS 13:15 → Y3N 15:09
PROVIDERS: ADMIT Allergy & Immunology; ATTEND Allergy & Immunology
PROC: HZ2ZZZZ Detoxification Services for Substance Abuse Treatment (ICD-10-PCS; principal; 2024-05-17)
DX: F10.230 Alcohol dependence with withdrawal, uncomplicated (principal); F17.210 Nicotine dependence, cigarettes, uncomplicated; F19.24 Other psychoactive substance dependence with psychoactive substance-induced mood disorder; F32.A Depression, unspecified; E78.5 Hyperlipidemia, unspecified; I10 Essential (primary) hypertension; K21.9 Gastro-esophageal reflux disease without esophagitis; J30.9 Allergic rhinitis, unspecified; M25.551 Pain in right hip; M54.50 Low back pain, unspecified; G89.29 Other chronic pain; R26.89 Other abnormalities of gait and mobility; Z99.89 Dependence on other enabling machines and devices; Z86.19 Personal history of other infectious and parasitic diseases
CPT/HCPCS: 36415; 80053; 80061; 80305; 80307; 85027; 86780; 86803; 93005; 93010